=== PATIENT | female | born 1945 | race Caucasian/White ===

== ENCOUNTER 2016-06-23 15:49 | Inpatient (IN) | payer OTHER ==
[~2016-06-23] VITALS: Ht 162.6 cm; Wt 65.1 kg
[~2016-06-23 15:49] MED LIST: ALBUAER2 INH; BACL10TA PO; CEPH500C2 PO; CLOP1TAB15 PO; CYM/30 PO; FENO134C2 PO; IRBE75TA2 PO; OXYC-57 PO
--- NOTE | 2016-06-23 16:07 | EMERGENCY ROOM VISIT NOTE ---
History Report prepared by Niko: Ga Lang Under the Supervision of: Dr. Zev Bronson D.O. First contact with patient: 15:51 Chief Complaint: CARDIAC ASSESSMENT Stated Complaint: CARDIAC ASSESSMENT, REFFERED BY History of Present Illness The patient is a 71 year old female who presents to the Emergency Room with complaints of a persistent abnormal EKG that occurred prior to arrival today. Per the EMS, the patient felt off balance this morning and her blood pressure was 86/46. The patient went to the [facility] and was sent here due to her EKG being different than previously. She has a previous heart cath. Per the patient, she felt tired and dizzy this morning, and hit her head on the doorway , and that is why she went to the [facility]. She notes that she felt good yesterday, but the day before yesterday she did not feel well. The patient complains of a bit of chest pain in one spot (which started months ago), a bit of shortness of breath, a cough, and abdominal pain. She denies a headache, nausea, vomiting, fevers, loss of consciousness, or swelling in her legs. She says she has not exerted herself recently. The patient is an ex-smoker and does not drink alcohol. Source of History: patient, EMS Onset: Prior to arrival today Position: other (global - abnormal EKG) Timing: other (persistent) Associated Symptoms: + SOB, + abdominal pain, + chest pain, + cough, + fatigue, No LOC, No fevers, No headache (no current), No nausea, No vomiting Note: Associated symptoms: Hypotension, dizziness. Denies swelling in legs. Review of Systems See HPI for pertinent positives & negatives. A total of 10 systems reviewed and were otherwise negative. Past Medical & Surgical Medical Problems: (1) Asthma (2) Coronary artery disease (3) Emphysema (4) NSTEMI (non-ST elevated myocardial infarction) (5) TIA (transient ischemic attack) Surgical Problems: (1) H/O bilateral mastectomy (2) H/O cardiac catheterization (3) H/O percutaneous transluminal coronary angioplasty (4) H/O: hysterectomy (5) Stented coronary artery Family History Cancer Heart disease Hypertension Social History Smoking Status: Former Smoker Alcohol Use: none Marital Status: Housing Status: lives alone Occupation Status: retired Current/Historical Medications Scheduled Aspirin (Aspirin Ec), 81 MG PO DAILY Atorvastatin (Atorvastatin Calcium), 40 MG PO DAILY Cholecalciferol (Vitamin D3), 2,000 INTER.UNIT PO DAILY Clopidogrel Bisulfate (Clopidogrel), 75 MG PO QAM Coenzyme Q10 (Ubidecarenone) (Co Q-10), 200 MG PO DAILY Duloxetine HCl (Duloxetine HCl), 30 MG PO DAILY Fenofibrate Micronized (Tricor), 134 MG PO DAILY Magnesium Oxide (Mag-Ox), 400 MG PO BID Trona-3 Fatty Acids (Trona 3), 4,000 MG PO DAILY Ranitidine HCl (Ranitidine HCl), 150 MG PO DAILY Scheduled PRN Albuterol (Ventolin Hfa), 2 PUFFS INH QID PRN for Wheezing Baclofen (Baclofen), 20 MG PO BID PRN for Muscle Spasm Oxycodone/Acetaminophen 5MG/325MG (Percocet 5MG/325MG), 1 TABLET PO TID PRN for Pain Allergies Coded Allergies: Naproxen (Verified Allergy, Mild, 03/24/16) Prednisone (Verified Allergy, Mild, 03/24/16) Sulindac (Verified Allergy, Mild, 03/24/16) Physical Exam Vital Signs Date Time Temp Pulse Resp B/P Pulse Ox O2 Delivery O2 Flow Rate FiO2 06/23/16 19:01 111 18 108/53 95 Room Air 06/23/16 17:59 37.7 112 20 167/68 95 Room Air 06/23/16 17:25 95 06/23/16 17:19 94 18 130/64 94 Room Air 06/23/16 16:37 96 20 105/52 97 Room Air 100 87/63 104 81/50 06/23/16 16:00 97 Room Air 06/23/16 16:00 36.5 93 18 113/65 96 Room Air Physical Exam GENERAL: Patient is awake, alert, and in no acute distress. Patient is resting comfortably and showing no signs of anxiety EYES: The conjunctivae are clear. The pupils are round and reactive. EARS, NOSE, MOUTH AND THROAT: The nose is without any evidence of any deformity. Mucous membranes are moist tongue is midline NECK: The neck is nontender and supple. RESPIRATORY: Lung sounds diminished throughout. Faint rales at both bases. No tachypnea or conversation dyspnea noted. CARDIOVASCULAR: Regular rate and rhythm noted there no murmurs rubs or gallops normal S1 normal S2 GASTROINTESTINAL: Mildly distended with epigastric tenderness to palpation. No guarding or rigidity noted. MUSCULOSKELETAL/EXTREMITIES: There is no evidence of gross deformity full range of motion is noted in the hips and shoulders SKIN: There is no obvious evidence of any rash. There are no petechiae, pallor or cyanosis noted. NEUROLOGIC: Patient is awake alert and oriented x3 strength is symmetric patellar reflexes are 2+ bilaterally Medical Decision & Procedures ER Provider Diagnostic Interpretation: X ray results and stated below per my interpretation and radiology interpretation. Other radiology results per my review and radiologist interpretation: HEAD CT NONCONTRAST CT DOSE: 614.27 mGy.cm HISTORY: fall, head injury TECHNIQUE: Multiaxial CT images of the head were performed without the use of intravenous contrast. Automated exposure control was utilized for this study. Comparison: Head CT 09/07/2014. Findings: Chronic complete opacification of the right maxillary sinus. The mastoid air cells are clear. The calvarium and skull base are intact. There is no mass, hematoma, midline shift, acute infarct. White matter hypodensity is nonspecific but suggestive of microvascular ischemic change. The ventricles and sulci demonstrate mild age-related involutional changes. Small old lacunar infarction within the right basal ganglia and left thalamus. This is also unchanged. Impression: No significant change compared to the prior study. No acute intracranial abnormality. Electronically signed by: Evans Conway M.D. 06/23/2016 5:03 PM CHEST ONE VIEW PORTABLE CLINICAL HISTORY: ABDOMINAL PAIN/GI nausea COMPARISON STUDY: 03/24/2016 FINDINGS: Chronic parenchymal fibrotic change. Subtle increase in prominence of pulmonary vasculature. Diaphragms smooth. Costophrenic angles are sharp. IMPRESSION: Chronic fibrotic change with a mild superimposed component of pulmonary vasculature congestion. There are no focal infiltrates Electronically signed by: Yonatahn Gibson M.D. 06/23/2016 4:[address] OF THE ABDOMEN AND PELVIS WITHOUT CONTRAST CLINICAL HISTORY: Upper abdominal pain COMPARISON STUDY: Abdomen and pelvis CT 03/24/2016. TECHNIQUE: Axial images of the abdomen and pelvis were obtained without IV contrast. Images were reviewed in the axial, sagittal, and coronal planes. FINDINGS: A few calcifications within the right renal sinus probably are vascular in etiology. Small right renal calculi would be difficult to exclude. There are no ureteral calculi. There is no hydronephrosis. There are gallstones within the gallbladder. Evaluation of the remainder of the abdomen and pelvis is suboptimal on this unenhanced exam. Unenhanced images of liver, spleen, adrenal glands and anchors are normal. There is a diverticulum of the second portion of the duodenum. There is no peripancreatic infiltration. There is no evidence for a bowel obstruction. There is colonic diverticulosis without evidence for acute diverticulitis. The appendix is normal. There are findings suggestive of pelvic floor relaxation. There is moderate plaque of the abdominal aorta. The aorta is ectatic. There is no aneurysmal dilatation. Chronic interstitial thickening and honeycombing at the lung bases. This remains unchanged. This likely represents fibrotic change. No pneumoperitoneum. No pneumatosis. Hysterectomy. IMPRESSION: 1. No definite bowel wall thickening or obstruction.. 2. Cholelithiasis. No gallbladder wall thickening.. 3. Normal appendix. 4. Colonic diverticulosis without evidence for acute diverticulitis. Electronically signed by: Evans Conway M.D. 06/23/2016 5:10 PM Laboratory Results 06/23/16 16:11 Red Blood Count 4.32, Mean Corpuscular Volume 84.7, Mean Corpuscular Hemoglobin 29.4, Mean Corpuscular Hemoglobin Concent 34.7, Mean Platelet Volume 9.3, Neutrophils (%) (Auto) 89.3, Lymphocytes (%) (Auto) 3.9, Monocytes (%) (Auto) 6.2, Eosinophils (%) (Auto) 0.1, Basophils (%) (Auto) 0.2, Neutrophils # (Auto) 11.77, Lymphocytes # (Auto) 0.51, Monocytes # (Auto) 0.81, Eosinophils # (Auto) 0.01, Basophils # (Auto) 0.02 06/23/16 16:11 Test 06/23/16 16:11 06/23/16 17:55 White Blood Count 13.16 K/uL (4.8-10.8) Red Blood Count 4.32 M/uL (4.2-5.4) Hemoglobin 12.7 g/dL (12.0-16.0) Hematocrit 36.6 % (37-47) Mean Corpuscular Volume 84.7 fL (80-100) Mean Corpuscular Hemoglobin 29.4 pg (25-34) Mean Corpuscular Hemoglobin Concent 34.7 g/dl (32-36) Platelet Count 155 K/uL (130-400) Mean Platelet Volume 9.3 fL (7.4-10.4) Neutrophils (%) (Auto) 89.3 % Lymphocytes (%) (Auto) 3.9 % Monocytes (%) (Auto) 6.2 % Eosinophils (%) (Auto) 0.1 % Basophils (%) (Auto) 0.2 % Neutrophils # (Auto) 11.77 K/uL (1.4-6.5) Lymphocytes # (Auto) 0.51 K/uL (1.2-3.4) Monocytes # (Auto) 0.81 K/uL (0.11-0.59) Eosinophils # (Auto) 0.01 K/uL (0-0.5) Basophils # (Auto) 0.02 K/uL (0-0.2) RDW Standard Deviation 42.9 fL (36.4-46.3) RDW Coefficient of Variation 13.9 % (11.5-14.5) Immature Granulocyte % (Auto) 0.3 % Immature Granulocyte # (Auto) 0.04 K/uL (0.00-0.02) Dohle Bodies 1+ Prothrombin Time 11.4 SECONDS (9.0-12.0) Prothromb Time International Ratio 1.1 (0.9-1.1) Activated Partial Thromboplast Time 28.2 SECONDS (21.0-31.0) Partial Thromboplastin Ratio 1.1 Anion Gap 11.0 mmol/L (3-11) Est Creatinine Clear Calc Drug Dose 29.8 ml/min Estimated GFR () 36.9 Estimated GFR (Non- 31.9 BUN/Creatinine Ratio 16.8 (10-20) Calcium Level 8.9 mg/dl (8.5-10.1) Total Bilirubin 1.1 mg/dl (0.2-1) Direct Bilirubin 0.2 mg/dl (0-0.2) Aspartate Amino Transf (AST/SGOT) 73 U/L (15-37) Alanine Aminotransferase (ALT/SGPT) 81 U/L (12-78) Alkaline Phosphatase 88 U/L (45-117) Total Creatine Kinase 52 U/L (26-192) Creatine Kinase MB 1.3 ng/ml (0.5-3.6) Creatine Kinase MB Ratio 2.5 (0-3.0) Troponin I 0.049 ng/ml (0-0.045) Pro-B-Type Natriuretic Peptide 6605 pg/ml (0-900) Total Protein 7.4 gm/dl (6.4-8.2) Albumin 3.7 gm/dl (3.4-5.0) Lipase 97 U/L (73-393) Urine Color DK YELLOW Urine Appearance TURBID (CLEAR) Urine pH 5.5 (4.5-7.5) Urine Specific [place] 1.018 (1.000-1.030) Urine Protein 2+ (NEG) Urine Glucose (UA) NEG (NEG) Urine Ketones TRACE (NEG) Urine Occult Blood 2+ (NEG) Urine Nitrite POS (NEG) Urine Bilirubin NEG (NEG) Urine Urobilinogen NEG (NEG) Urine Leukocyte Esterase LARGE (NEG) Urine WBC (Auto) >30 /hpf (0-5) Urine RBC (Auto) 5-10 /hpf (0-4) Urine Hyaline Casts (Auto) 1-5 /lpf (0-5) Urine Epithelial Cells (Auto) >30 /lpf (0-5) Urine Bacteria (Auto) 2+ (NEG) Laboratory results per my review. Medications Administered Medications (Trade) Dose Ordered Sig/Jim Route Start Time Stop Time Status Last Admin Dose Admin Levofloxacin 750 mg 750 mg NOW STAT IV 06/23/16 18:34 06/23/16 18:35 DC 06/23/16 18:59 750 MG Sodium Chloride (Nss 1000ml) 1,000 ml @ 999 mls/hr Q1H1M STAT IV 06/23/16 18:38 06/23/16 19:38 06/23/16 18:59 999 MLS/HR ECG Indication: other (previous abnormal ECG) Rate (beats per minute): 94 Rhythm: normal sinus Findings: Q waves (Inferior), other (Diffuse ST depression noted) Change: no significant change (from March 24 2016) ED Course 1553: The patient was evaluated in room C1B. A complete history and physical examination were performed. 1830: I reevaluated the patient and she is resting comfortably. The patient verbally expressed agreement and understanding of the treatment plan. The patient will be evaluated for further treatment. 1834: Ordered Levaquin / D5W 750 mg IV. 1837: Ordered NSS 1000 ml @ 999 mls/hr IV. 1844: I discussed the patient with Monisha Larsen - she will evaluate the patient for further treatment. Medical Decision Differential diagnosis: Etiologies such as metabolic, infection, hypo/hyperglycemia, electrolyte abnormalities, cardiac sources, intracerebral event, toxicologic, neurologic, as well as others were entertained. Nursing notes reviewed. The patient is a 71-year-old female who presented to the emergency department for an evaluation of dizziness. She was found have an abnormal EKG and her primary care physician's office. She was found have an abnormal EKG and was sent to the emergency department for EKG abnormalities. Her EKG was abnormal but the changes did not appear to be new compared to previous EKG. The patient was found have hypotension as well as a urinary tract infection. I feel it is possible that this is the cause of the patient's hypotension. Initially she was being worked up as a cardiac patient but in retrospect I feel that this is likely represents early sepsis. She responded well to IV fluids. She was given IV antibiotics the emergency department. I discussed the patient's laboratory and radiographic studies with her and her family or murmurs. I also discussed her case with the on-call [facility] hospitalist group. They've agreed to evaluate the patient in the emergency apartment for further management and disposition. Consults Time Called: 1839 Consulting Physician: Monisha Larsen Returned Call: 1844 I discussed the patient with Monisha Larsen - she will evaluate the patient for further treatment. Impression Primary Impression: Sepsis Additional Impressions: UTI (urinary tract infection), Abnormal EKG, Elevated troponin Scribe Attestation The scribe's documentation has been prepared under my direction and personally reviewed by me in its entirety. I confirm that the note above accurately reflects all work, treatment, procedures, and medical decision making performed by me. Departure Information Dispostion Being Evaluated By Hospitalist Referrals Kylie Evans M.D. (PCP) Patient Instructions A Signature Page, My [facility]
[2016-06-23 16:22] LABS: HEMATOCRIT 36.6 % (37-47); MEAN CELL VOLUME 84.7 fL (80-100); MEAN CORPUSCULAR HEMOGLOBIN 29.4 pg (25-34); MEAN CORPUSCULAR HGB CONC 34.7 g/dl (32-36); MEAN PLATELET VOLUME 9.3 fL (7.4-10.4); PLATELET COUNT 155 K/uL (130-400); RED BLOOD COUNT 4.32 M/uL (4.2-5.4); WHITE BLOOD COUNT 13.16 K/uL (4.8-10.8)
--- NOTE | 2016-06-23 16:36 | DIAGNOSTIC IMAGING REPORT ---
CHEST ONE VIEW PORTABLE CLINICAL HISTORY: ABDOMINAL PAIN/GI nausea COMPARISON STUDY: 03/24/2016 FINDINGS: Chronic parenchymal fibrotic change. Subtle increase in prominence of pulmonary vasculature. Diaphragms smooth. Costophrenic angles are sharp. IMPRESSION: Chronic fibrotic change with a mild superimposed component of pulmonary vasculature congestion. There are no focal infiltrates Electronically signed by: Yonathan Gibson M.D. 06/23/2016 4:34 PM
[2016-06-23 16:43] LABS: CALCIUM 8.9 mg/dl (8.5-10.1); POTASSIUM 3.9 mmol/L (3.5-5.1)
[2016-06-23] MEDS ORDERED: PLV75 PO (16:46)
[2016-06-23] MEDS ORDERED: CYM30 PO (16:46)
[2016-06-23] MEDS ORDERED: FENO134C PO (16:46)
[2016-06-23] MEDS ORDERED: LPT40 PO (16:46)
[2016-06-23] MEDS ORDERED: LRS20 PO (16:46)
[2016-06-23 16:47] LABS: BUN/CREATININE RATIO 16.8 (10-20); CREATININE 1.6 mg/dl (0.60-1.20)
[2016-06-23 16:48] LABS: BASO % 0.2 %; BASO ABS # 0.02 K/uL (0-0.2); COMPLETE YES; DOHLE BODIES 1+; EOS % 0.1 %; IG% 0.3 %; LYMPH % 3.9 %; LYMPH ABS # 0.51 K/uL (1.2-3.4); MONO % 6.2 %; NEUT % 89.3 %
[2016-06-23 16:51] LABS: INR 1.1 (0.9-1.1); PARTIAL THROMBOPLASTIN RATIO 1.1; PROTHROMBIN TIME (PATIENT) 11.4 SECONDS (9.0-12.0)
--- NOTE | 2016-06-23 17:05 | DIAGNOSTIC IMAGING REPORT ---
HEAD CT NONCONTRAST CT DOSE: 614.27 mGy.cm HISTORY: fall, head injury TECHNIQUE: Multiaxial CT images of the head were performed without the use of intravenous contrast. Automated exposure control was utilized for this study. Comparison: Head CT 09/07/2014. Findings: Chronic complete opacification of the right maxillary sinus. The mastoid air cells are clear. The calvarium and skull base are intact. There is no mass, hematoma, midline shift, acute infarct. White matter hypodensity is nonspecific but suggestive of microvascular ischemic change. The ventricles and sulci demonstrate mild age-related involutional changes. Small old lacunar infarction within the right basal ganglia and left thalamus. This is also unchanged. Impression: No significant change compared to the prior study. No acute intracranial abnormality. Electronically signed by: Evans Conway M.D. 06/23/2016 5:03 PM
[2016-06-23 17:06] LABS: CKMB/CK RATIO 2.5 (0-3.0)
--- NOTE | 2016-06-23 17:12 | DIAGNOSTIC IMAGING REPORT ---
CT OF THE ABDOMEN AND PELVIS WITHOUT CONTRAST CLINICAL HISTORY: Upper abdominal pain COMPARISON STUDY: Abdomen and pelvis CT 03/24/2016. TECHNIQUE: Axial images of the abdomen and pelvis were obtained without IV contrast. Images were reviewed in the axial, sagittal, and coronal planes. FINDINGS: A few calcifications within the right renal sinus probably are vascular in etiology. Small right renal calculi would be difficult to exclude. There are no ureteral calculi. There is no hydronephrosis. There are gallstones within the gallbladder. Evaluation of the remainder of the abdomen and pelvis is suboptimal on this unenhanced exam. Unenhanced images of liver, spleen, adrenal glands and anchors are normal. There is a diverticulum of the second portion of the duodenum. There is no peripancreatic infiltration. There is no evidence for a bowel obstruction. There is colonic diverticulosis without evidence for acute diverticulitis. The appendix is normal. There are findings suggestive of pelvic floor relaxation. There is moderate plaque of the abdominal aorta. The aorta is ectatic. There is no aneurysmal dilatation. Chronic interstitial thickening and honeycombing at the lung bases. This remains unchanged. This likely represents fibrotic change. No pneumoperitoneum. No pneumatosis. Hysterectomy. IMPRESSION: 1. No definite bowel wall thickening or obstruction.. 2. Cholelithiasis. No gallbladder wall thickening.. 3. Normal appendix. 4. Colonic diverticulosis without evidence for acute diverticulitis. Electronically signed by: Evans Conway M.D. 06/23/2016 5:10 PM
[2016-06-23 18:18] LABS: URINE APPEARANCE TURBID (CLEAR); URINE COLOR DK YELLOW; URINE EPITHELIAL CELL AUTO >30 /lpf (0-5); URINE NITRITE POS (NEG); URINE PH 5.5 (4.5-7.5); URINE SPECIFIC GRAVITY 1.018 (1.000-1.030); UROBILINOGEN NEG (NEG); ZZURINE CULT IF INDIC CATH YES
[2016-06-23 18:25] LABS: MANUAL MICROSCOPIC REQUIRED? NO; REVIEW REQ? NO
[2016-06-23 18:27] LABS: URINE BILIRUBIN NEG (NEG)
[2016-06-23] MEDS ORDERED: LEVAQUIN 750MG / 150ML D5W IV STA (18:34)
[2016-06-23] MEDS ORDERED: SODIUM CHLORIDE 0.9% 1000ML 1,000 ML IV STA (18:38)
[2016-06-23] MEDS ORDERED: ONDANSETRON INJ 2 MG/ML 2 ML VIAL IV PRN (19:30)
[2016-06-23] MEDS ORDERED: POLYETHYLENE (MIRALAX) 17 GM PACK PO PRN (19:30)
[2016-06-23] MEDS ORDERED: ALUMINUM/MAGNESIUM/SIMETH (MAALOX MAX) 30 ML UDC PO PRN (19:30)
[2016-06-23] MEDS ORDERED: ACETAMINOPHEN 325 MG TAB PO PRN (19:30)
[2016-06-23] MEDS ORDERED: MAGNESIUM HYDROXIDE SUSP 30 ML UDC PO PRN (19:30)
--- NOTE | 2016-06-23 20:25 | History and Physical ---
History & Physical Date & Time of Service: Jun 23, 2016 at 20:09 Chief Complaint: Cardiac Assessment, Reffered By . Primary Care Physician: Kylie Evans M.D. History of Present Illness Source: patient, family, clinic records, hospital records This is a 71 year old female with PMH of CAD s/p stents, hx. of CVA, CKD stage 3 , mild COPD presents with dizziness and low blood pressure - states that she was feeling dizzy while walking her dog today. She then went home and her blood pressure was checked by family members and was noted to have SBP between 80-90. She was seen at PCP, Dr. Evans's office later in the day and found to have blood pressure 60/40 and tachycardic and was sent over to the ER for further evaluation. In the ER, she was given IVFs with good response to her blood pressure - UA performed showing UTI; patient states that she did note hematuria on Wednesday (06/21). Denies chest pain, has chronic SOB, which is about at her baseline; improvement with inhaler usage. Currently, her only complaint is weakness. Past Medical/Surgical History Medical Problems: (1) Asthma Status: Chronic (2) Coronary artery disease Status: Chronic (3) Emphysema Status: Chronic (4) NSTEMI (non-ST elevated myocardial infarction) Status: Resolved (5) TIA (transient ischemic attack) Status: Resolved Surgical Problems: (1) H/O bilateral mastectomy Status: Resolved (2) H/O cardiac catheterization Status: Resolved (3) H/O percutaneous transluminal coronary angioplasty Status: Resolved (4) H/O: hysterectomy Status: Resolved (5) Stented coronary artery Status: Chronic Family History Cancer Heart disease Hypertension Social History Smoking Status: Former Smoker Marital Status: Occupational Status: retired Allergies Coded Allergies: Naproxen (Verified Allergy, Mild, 03/24/16) Prednisone (Verified Allergy, Mild, 03/24/16) Sulindac (Verified Allergy, Mild, 03/24/16) Home Medications Scheduled Aspirin (Aspirin Ec), 81 MG PO DAILY Atorvastatin (Atorvastatin Calcium), 40 MG PO DAILY Cholecalciferol (Vitamin D3), 2,000 INTER.UNIT PO DAILY Clopidogrel Bisulfate (Clopidogrel), 75 MG PO QAM Coenzyme Q10 (Ubidecarenone) (Co Q-10), 200 MG PO DAILY Duloxetine HCl (Duloxetine HCl), 30 MG PO DAILY Fenofibrate Micronized (Tricor), 134 MG PO DAILY Magnesium Oxide (Mag-Ox), 400 MG PO BID [place]-3 Fatty Acids ([place] 3), 4,000 MG PO DAILY Ranitidine HCl (Ranitidine HCl), 150 MG PO DAILY Scheduled PRN Albuterol (Ventolin Hfa), 2 PUFFS INH QID PRN for Wheezing Baclofen (Baclofen), 20 MG PO BID PRN for Muscle Spasm Oxycodone/Acetaminophen 5MG/325MG (Percocet 5MG/325MG), 1 TABLET PO TID PRN for Pain Review of Systems Constitutional: + fatigue, + weakness, No chills, No fever, No sweats, No weight loss Respiratory: + cough, + shortness of breath (baseline), No sputum, No wheezing Cardiovascular: No chest pain, No edema, No orthopnea, No palpitations Abdomen: No GI bleeding, No constipation, No diarrhea, No nausea, No pain, No vomiting Musculoskeletal: + joint pain (chronic back pain) Genitourinary - Female: + hematuria, No dysuria, No urinary frequency, No urinary urgency Neurologic: + balance problems, + vertigo, + weakness, No memory loss, No numbness/tingling, No paralysis Psychiatric: No depression symptoms Endocrine: No fatigue Integumentary: No rash Allergic / Immunologic: No environmental allergies, No seasonal allergies Physical Exam Vital Signs Date Time Temp Pulse Resp B/P Pulse Ox O2 Delivery O2 Flow Rate FiO2 06/23/16 19:01 111 18 108/53 95 Room Air 06/23/16 17:59 37.7 112 20 167/68 95 Room Air 06/23/16 17:25 95 06/23/16 17:19 94 18 130/64 94 Room Air 06/23/16 16:37 96 20 105/52 97 Room Air 100 87/63 104 81/50 06/23/16 16:00 97 Room Air 06/23/16 16:00 36.5 93 18 113/65 96 Room Air General Appearance: + pertinent finding (+lethargic/weak) Head: normocephalic, atraumatic Eyes: normal inspection ENT: hearing grossly normal Neck: supple Respiratory/Chest: lungs clear, normal breath sounds, no respiratory distress, no accessory muscle use Cardiovascular: no edema, no murmur, + tachycardia Abdomen/GI: normal bowel sounds, non tender, soft Extremities/Musculoskelatal: normal inspection, no calf tenderness, normal capillary refill, no pedal edema Neurologic/Psych: no motor/sensory deficits, alert, normal mood/affect Skin: normal color Lymphatic: no adenopathy Diagnostics Laboratory Results Results Past 24 Hours Test 06/23/16 16:11 06/23/16 17:55 06/23/16 19:41 06/23/16 19:47 Range/Units White Blood Count 13.16 4.8-10.8 K/uL Red Blood Count 4.32 4.2-5.4 M/uL Hemoglobin 12.7 12.0-16.0 g/dL Hematocrit 36.6 37-47 % Mean Corpuscular Volume 84.7 80-100 fL Mean Corpuscular Hemoglobin 29.4 25-34 pg Mean Corpuscular Hemoglobin Concent 34.7 32-36 g/dl Platelet Count 155 130-400 K/uL Mean Platelet Volume 9.3 7.4-10.4 fL Neutrophils (%) (Auto) 89.3 % Lymphocytes (%) (Auto) 3.9 % Monocytes (%) (Auto) 6.2 % Eosinophils (%) (Auto) 0.1 % Basophils (%) (Auto) 0.2 % Neutrophils # (Auto) 11.77 1.4-6.5 K/uL Lymphocytes # (Auto) 0.51 1.2-3.4 K/uL Monocytes # (Auto) 0.81 0.11-0.59 K/uL Eosinophils # (Auto) 0.01 0-0.5 K/uL Basophils # (Auto) 0.02 0-0.2 K/uL RDW Standard Deviation 42.9 36.4-46.3 fL RDW Coefficient of Variation 13.9 11.5-14.5 % Immature Granulocyte % (Auto) 0.3 % Immature Granulocyte # (Auto) 0.04 0.00-0.02 K/uL Dohle Bodies 1+ Prothrombin Time 11.4 9.0-12.0 SECONDS Prothromb Time International Ratio 1.1 0.9-1.1 Activated Partial Thromboplast Time 28.2 21.0-31.0 SECONDS Partial Thromboplastin Ratio 1.1 Sodium Level 140 136-145 mmol/L Potassium Level 3.9 3.5-5.1 mmol/L Chloride Level 106 98-107 mmol/L Carbon Dioxide Level 23 21-32 mmol/L Anion Gap 11.0 3-11 mmol/L Blood Urea Nitrogen 27 7-18 mg/dl Creatinine 1.60 0.60-1.20 mg/dl Est Creatinine Clear Calc Drug Dose 29.8 ml/min Estimated GFR () 36.9 Estimated GFR (Non- 31.9 BUN/Creatinine Ratio 16.8 10-20 Random Glucose 106 70-99 mg/dl Calcium Level 8.9 8.5-10.1 mg/dl Total Bilirubin 1.1 0.2-1 mg/dl Direct Bilirubin 0.2 0-0.2 mg/dl Aspartate Amino Transf (AST/SGOT) 73 15-37 U/L Alanine Aminotransferase (ALT/SGPT) 81 12-78 U/L Alkaline Phosphatase 88 45-117 U/L Total Creatine Kinase 52 26-192 U/L Creatine Kinase MB 1.3 0.5-3.6 ng/ml Creatine Kinase MB Ratio 2.5 0-3.0 Troponin I 0.049 0-0.045 ng/ml Pro-B-Type Natriuretic Peptide 6605 0-900 pg/ml Total Protein 7.4 6.4-8.2 gm/dl Albumin 3.7 3.4-5.0 gm/dl Lipase 97 73-393 U/L Urine Color DK YELLOW Urine Appearance TURBID CLEAR Urine pH 5.5 4.5-7.5 Urine Specific [place] 1.018 1.000-1.030 Urine Protein 2+ NEG Urine Glucose (UA) NEG NEG Urine Ketones TRACE NEG Urine Occult Blood 2+ NEG Urine Nitrite POS NEG Urine Bilirubin NEG NEG Urine Urobilinogen NEG NEG Urine Leukocyte Esterase LARGE NEG Urine WBC (Auto) >30 0-5 /hpf Urine RBC (Auto) 5-10 0-4 /hpf Urine Hyaline Casts (Auto) 1-5 0-5 /lpf Urine Epithelial Cells (Auto) >30 0-5 /lpf Urine Bacteria (Auto) 2+ NEG Bedside Lactic Acid Venous 2.75 0.90-1.70 mmol/L Microbiology Results 06/23/16 Blood Culture, Received Pending 06/23/16 Blood Culture, Received Pending 1/3/17 Urine Culture, Received Pending Diagnostic Radiology CHEST ONE VIEW PORTABLE CLINICAL HISTORY: ABDOMINAL PAIN/GI nausea COMPARISON STUDY: 03/24/2016 FINDINGS: Chronic parenchymal fibrotic change. Subtle increase in prominence of pulmonary vasculature. Diaphragms smooth. Costophrenic angles are sharp. IMPRESSION: Chronic fibrotic change with a mild superimposed component of pulmonary vasculature congestion. There are no focal infiltrates HEAD CT NONCONTRAST CT DOSE: 614.27 mGy.cm HISTORY: fall, head injury TECHNIQUE: Multiaxial CT images of the head were performed without the use of intravenous contrast. Automated exposure control was utilized for this study. Comparison: Head CT 09/07/2014. Findings: Chronic complete opacification of the right maxillary sinus. The mastoid air cells are clear. The calvarium and skull base are intact. There is no mass, hematoma, midline shift, acute infarct. White matter hypodensity is nonspecific but suggestive of microvascular ischemic change. The ventricles and sulci demonstrate mild age-related involutional changes. Small old lacunar infarction within the right basal ganglia and left thalamus. This is also unchanged. Impression: No significant change compared to the prior study. No acute intracranial abnormality. CT OF THE ABDOMEN AND PELVIS WITHOUT CONTRAST CLINICAL HISTORY: Upper abdominal pain COMPARISON STUDY: Abdomen and pelvis CT 03/24/2016. TECHNIQUE: Axial images of the abdomen and pelvis were obtained without IV contrast. Images were reviewed in the axial, sagittal, and coronal planes. FINDINGS: A few calcifications within the right renal sinus probably are vascular in etiology. Small right renal calculi would be difficult to exclude. There are no ureteral calculi. There is no hydronephrosis. There are gallstones within the gallbladder. Evaluation of the remainder of the abdomen and pelvis is suboptimal on this unenhanced exam. Unenhanced images of liver, spleen, adrenal glands and anchors are normal. There is a diverticulum of the second portion of the duodenum. There is no peripancreatic infiltration. There is no evidence for a bowel obstruction. There is colonic diverticulosis without evidence for acute diverticulitis. The appendix is normal. There are findings suggestive of pelvic floor relaxation. There is moderate plaque of the abdominal aorta. The aorta is ectatic. There is no aneurysmal dilatation. Chronic interstitial thickening and honeycombing at the lung bases. This remains unchanged. This likely represents fibrotic change. No pneumoperitoneum. No pneumatosis. Hysterectomy. IMPRESSION: 1. No definite bowel wall thickening or obstruction.. 2. Cholelithiasis. No gallbladder wall thickening.. 3. Normal appendix. 4. Colonic diverticulosis without evidence for acute diverticulitis. EKG Sinus rhythm with Premature atrial complexes Left ventricular hypertrophy with repolarization abnormality ST depression in Anterior leads , consider ischemia Old Inferior-posterior infarct Prolonged QT Abnormal ECG Similar to previous EKG, with a prolongation of QTc Impression Assessment and Plan This is a 71 year old female with PMH of CAD s/p stents, hx. of CVA, CKD stage 3 , mild COPD here with UTI and meets sepsis criteria Sepsis secondary to Urinary Tract Infection -->patient meets sepsis criteria - +tachycardia, +leukocytosis, +hypotension -->lactic acid > 2 -->patient given 1L of fluid in the ER; blood pressure responded well -->given Levaquin in the ER -->will switch to Rocephin due to prolonged QTc -->gentle hydration -->urine culture/blood cultures pending Acute Kidney Injury superimposed on CKD stage 3 -->secondary to above -->given 1L of NS; gentle maintenance fluids -->monitor creat and avoid nephrotoxic agents when possible Elevation of Troponin -->mild elevation of troponin, 0.049 -->likely secondary to sepsis, patient without chest pain -->repeat EKG in AM to compare to today -->cardiac enzymes x 3 sets BNP elevation -->patient's last echo done on July 2014; showing normal LVEF -->possibly secondary to sepsis -->gentle hydration due to hypotension/dehydration; monitor for fluid overload CAD s/p stenting -->continue with ASA, plavix, statin -->trend cardiac enzymes DVT ppx -->subq heparin FULL CODE VTE Prophylaxis VTE Risk Assessment Done? Y/N: Yes Risk Level: High
[2016-06-23] MEDS ORDERED: CHOL20005 PO (20:26)
[2016-06-23] MEDS ORDERED: ZNT150 PO (20:27)
[2016-06-23] MEDS ORDERED: COEN1CAP37 PO (21:22)
[2016-06-23] MEDS ORDERED: OMEG12006 PO (21:22)
[2016-06-23] MEDS ORDERED: MAGN400T5 PO (21:22)
[2016-06-23] MEDS ORDERED: ASPI81TA28 PO (21:22)
[2016-06-23 21:35] VITALS: BP 110/66; PULSE 109; TEMP 37.4; Ht 162.6 cm; Wt 65.1 kg
[2016-06-23] MEDS: SODIUM CHLORIDE 0.9% 1000ML 1,000 ML IV SCH (22:27)
[2016-06-23 23:05] VITALS: BP 100/48; PULSE 99; TEMP 36.7; O2SAT 93
[2016-06-24 00:01] VITALS: O2SAT 95
[2016-06-24] MEDS: CEFTRIAXONE SOD INJ 1 GM in DEXTROSE 5% ADD-VANTAGE 50ML 50 ML IV SCH ×2 (00:04→21:04)
[2016-06-24] MEDS: FLUTICASONE PROPIONATE NA SPR 16 GM BTL SCH ×3 (00:04→19:58)
[2016-06-24] MEDS: MAGNESIUM OXIDE 400 MG TAB PO SCH ×3 (00:05→21:03)
[2016-06-24] MEDS: HEPARIN SOD 5000 UNIT/0.5 ML CARP SQ SCH ×4 (00:10→21:07)
[2016-06-24 01:53] LABS: INFLUENZA A PCR Neg for Influ A (NEG); INFLUENZA B PCR Neg for Influ B (NEG)
[2016-06-24] MEDS ORDERED: PNEUMOCOCCAL ADMINISTRATION CHARGE ONE (02:30)
[2016-06-24] MEDS ORDERED: PNEUMOCOCCAL POLYSACCHARIDES 25 MCG/0.5 ML VIAL/SYR IM. ONE (02:30)
[2016-06-24 02:31] LABS: CKMB/CK RATIO 2.5 (0-3.0)
[2016-06-24 03:33] LABS: MEAN CELL VOLUME 86.4 fL (80-100); MEAN CORPUSCULAR HGB CONC 33.5 g/dl (32-36); MEAN PLATELET VOLUME 9.8 fL (7.4-10.4); PLATELET COUNT 110 K/uL (130-400); RED BLOOD COUNT 3.59 M/uL (4.2-5.4); WHITE BLOOD COUNT 7.06 K/uL (4.8-10.8)
[2016-06-24 03:51] LABS: CALCIUM 8.3 mg/dl (8.5-10.1); CREATININE 1.4 mg/dl (0.60-1.20); MAGNESIUM 2.4 mg/dl (1.8-2.4); POTASSIUM 3.8 mmol/L (3.5-5.1)
[2016-06-24 04:00] VITALS: BP 98/58; PULSE 93; TEMP 36.7; O2SAT 92
[2016-06-24 07:29] VITALS: BP 118/64; PULSE 95; TEMP 36.6; O2SAT 94
[2016-06-24] MEDS: DULOXETINE (CYMBALTA) 30 MG CAP PO SCH (08:30)
[2016-06-24] MEDS: ASPIRIN 81 MG ECTAB PO SCH (08:30)
[2016-06-24] MEDS: ATORVASTATIN 40 MG TAB PO SCH (08:31)
[2016-06-24] MEDS: RANITIDINE HCL 150 MG TAB PO SCH (08:31)
[2016-06-24] MEDS: CLOPIDOGREL BISULFATE 75 MG TAB PO SCH (08:31)
[2016-06-24 10:54] LABS: CKMB/CK RATIO 2.7 (0-3.0)
[2016-06-24] MEDS: SODIUM CHLORIDE 0.9% 1000ML 1,000 ML IV SCH ×2 (11:00→23:30)
[2016-06-24 11:18] VITALS: BP 144/71; PULSE 88; TEMP 36.8; O2SAT 98
--- NOTE | 2016-06-24 15:02 | ECHOCARDIOGRAM REPORT ---
*NOTICE TO RECEIVING LIBERTARIAN AGENCY This information is strictly Confidential and protected under [place] law. [place] law prohibits you from making any further disclosure of this information unless further disclosure is expressly permitted by the written consent of the person to whom it pertains or is authorized by law. A general authorization for the release of medical or other information is not sufficient for this purpose. Hospital accepts no responsibility if the information is made available to any other person, INCLUDING THE PATIENT. Interpretation Summary * Name: GAYE APONTE Study Date: 06/24/2016 12:56 PM BP: 144/71 mmHg * Patient Location: C.2T\S\S241\S\2 HR: 88 * : 1945 (M/d/yyyy) Gender: Female Height: 64 in * Age: 71 yrs Ethnicity: [place] Weight: 145 lb * Ordering Physician: Ashlyn Guo * Referring Physician: Self, Referred * Performed By: Juno Rodarte RCS * * Reason For Study: Elevated troponins * BSA: 1.7 m2 * -- Conclusions -- * Normal LV chamber size and wall thickness. * Normal LV systolic function, EF 60-65%. * No segmental left ventricular wall motion abnormalities are noted. * Grade I diastolic dysfunction. * Mild mitral regurgitation. * Mild tricuspid regurgitation. * Mild left atrial enlargement. Procedure Details * A complete two-dimensional transthoracic echocardiogram was performed (2D, M-mode, Doppler and color flow Doppler). Left Ventricle * The left ventricle is normal in size. * There is normal left ventricular wall thickness. * Ejection Fraction = 60-65%. * Left ventricular systolic function is normal. * No segmental left ventricular wall motion abnormalities are noted. * The left ventricular wall motion is normal. Right Ventricle * The right ventricular cavity size is normal (basal dimension <4.2 cm in right ventricular apical 4-chamber view). * The right ventricular systolic function is normal as assessed by tricuspid annular plane systolic excursion (TAPSE) (normal >1.5 cm). Atria * The left atrium is mildly dilated. * Right atrial size is normal. * No ASD detected; PFO is not assessed. Mitral Valve * The mitral valve anatomy is normal. * There is no mitral valve stenosis. * There is mild mitral regurgitation. Tricuspid Valve * The tricuspid valve anatomy is normal. * There is no tricuspid stenosis. * There is mild tricuspid regurgitation. Aortic Valve * The aortic valve is normal in structure and function. Pulmonic Valve * The pulmonary valve is not well seen, but the Doppler examination is normal without significant regurgitation or stenosis. Great Vessels * The aortic root is normal size. Pericardium/Pleural * There is no pericardial effusion. Left Ventricular Diastolic Function * Grade I diastolic dysfunction, (abnormal relaxation pattern). MMode 2D Measurements and Calculations IVSd 1.0 cm IVSs 1.5 cm LVIDd 4.6 cm LVIDs 3.1 cm LVPWd 1.0 cm LVPWs 1.6 cm IVS/LVPW 1.0 FS 32.3 % EDV(Teich) 97.2 ml ESV(Teich) 38.3 ml EF(Teich) 60.7 % EDV(cubed) 97.2 ml ESV(cubed) 30.1 ml EF(cubed) 69.0 % % IVS thick 44.1 % % LVPW thick 55.9 % LV mass(C)d 163.8 grams LV mass(C)dI 96.0 grams/m\S\2 LV mass(C)s 172.0 grams LV mass(C)sI 100.8 grams/m\S\2 CO(Teich) 4.9 l/min CI(Teich) 2.9 l/min/m\S\2 SV(Teich) 59.0 ml SI(Teich) 34.6 ml/m\S\2 CO(cubed) 5.6 l/min CI(cubed) 3.3 l/min/m\S\2 SV(cubed) 67.1 ml SI(cubed) 39.3 ml/m\S\2 Ao root diam 3.5 cm Ao root area 9.5 cm\S\2 ACS 2.0 cm LA dimension 4.5 cm LA/Ao 1.3 LVAd ap4 23.9 cm\S\2 LVLd ap4 7.9 cm EDV(MOD-sp4) 61.0 ml LVAs ap4 13.2 cm\S\2 LVLs ap4 6.2 cm ESV(MOD-sp4) 24.0 ml EF(MOD-sp4) 60.7 % LVAd ap2 25.6 cm\S\2 LVLd ap2 8.1 cm EDV(MOD-sp2) 68.0 ml LVAs ap2 13.8 cm\S\2 LVLs ap2 6.4 cm ESV(MOD-sp2) 26.0 ml EF(MOD-sp2) 61.8 % CO(MOD-sp4) 3.1 l/min CI(MOD-sp4) 1.8 l/min/m\S\2 SV(MOD-sp4) 37.0 ml SI(MOD-sp4) 21.7 ml/m\S\2 CO(MOD-sp2) 3.5 l/min CI(MOD-sp2) 2.0 l/min/m\S\2 SV(MOD-sp2) 42.0 ml SI(MOD-sp2) 24.6 ml/m\S\2 Doppler Measurements and Calculations MV E max jenny 62.7 cm/sec MV A max jenny 105.6 cm/sec MV E/A 0.59 MV P1/2t max jenny 67.3 cm/sec MV P1/2t 95.7 msec MVA(P1/2t) 2.3 cm\S\2 MV dec slope 206.2 cm/sec\S\2 MV dec time 0.25 sec Ao V2 max 132.3 cm/sec Ao max PG 7.0 mmHg Ao max PG (full) 1.3 mmHg LV V1 max PG 5.8 mmHg LV V1 max 119.9 cm/sec PA V2 max 104.8 cm/sec PA max PG 4.4 mmHg TR max jenny 307.1 cm/sec
[2016-06-24 15:56] VITALS: BP 142/70; PULSE 88; TEMP 36.8; O2SAT 95
[2016-06-24 19:30] VITALS: BP 132/74; PULSE 98; TEMP 36.9; O2SAT 94
--- NOTE | 2016-06-24 21:25 | Progress Note ---
Medicine Progress Note Date & Time of Visit: Jun 24, 2016 at 21:11. Subjective Pt was seen and examined Lying in bed comfortable with at bedside Pt said that she feels much better she denies any fever, chest pain, palpitation, dizziness and SOB Objective Last 8 Hrs Date Time Temp Pulse Resp B/P Pulse Ox O2 Delivery O2 Flow Rate FiO2 06/24/16 20:00 Room Air 06/24/16 19:30 36.9 98 20 132/74 94 Room Air 06/24/16 16:00 Room Air 06/24/16 15:56 36.8 88 22 142/70 95 Room Air Physical Exam: General- no acute distress Head- atraumatic Eyes- PERRL, EOMI ENT- oropharynx clear Neck- supple, no JVD Lungs- clear to auscultation and percussion Heart- regular rhythm, S1/S2 present, No tachy Abdomen- normal bowel sounds, soft, nontender Extremities- no calf tenderness Neuro- alert, oriented x 3; PERRL, EOMI; no facial palsy Skin- warm & dry Laboratory Results: Last 24 Hours Test 06/23/16 22:30 06/24/16 01:35 06/24/16 03:20 06/24/16 09:50 Influenza Type A (RT-PCR) Neg for Influ A Influenza Type B (RT-PCR) Neg for Influ B Total Creatine Kinase 53 U/L 49 U/L Creatine Kinase MB 1.3 ng/ml 1.3 ng/ml Creatine Kinase MB Ratio 2.5 2.7 Troponin I 0.061 ng/ml 0.080 ng/ml White Blood Count 7.06 K/uL Red Blood Count 3.59 M/uL Hemoglobin 10.4 g/dL Hematocrit 31.0 % Mean Corpuscular Volume 86.4 fL Mean Corpuscular Hemoglobin 29.0 pg Mean Corpuscular Hemoglobin Concent 33.5 g/dl RDW Standard Deviation 44.7 fL RDW Coefficient of Variation 14.2 % Platelet Count 110 K/uL Mean Platelet Volume 9.8 fL Sodium Level 144 mmol/L Potassium Level 3.8 mmol/L Chloride Level 110 mmol/L Carbon Dioxide Level 24 mmol/L Anion Gap 10.0 mmol/L Blood Urea Nitrogen 27 mg/dl Creatinine 1.40 mg/dl Est Creatinine Clear Calc Drug Dose 31.4 ml/min Estimated GFR () 43.4 Estimated GFR (Non- 37.4 BUN/Creatinine Ratio 19.0 Random Glucose 97 mg/dl Lactic Acid Level 1.5 mmol/L Calcium Level 8.3 mg/dl Magnesium Level 2.4 mg/dl Assessment & Plan Sepsis secondary to Urinary Tract Infection -patient meets sepsis criteria on admission - +tachycardia, +leukocytosis, + hypotension with elevated lactic acid -given Levaquin in the ER - Preliminary Blood cx and urine cx grow gram negative bacilli - Continue Rocephin IV -gentle hydration -afebrile and WBC trending down Acute Kidney Injury superimposed on CKD stage 3 Creatine on admission was 1.6 Creatine today 1.4 Continue gentle IV fluid Continue monitor creatine Avoid nephrotoxic agents Elevation of Troponin mild elevation of troponin EKG did not show any significant ST changes Mostly likely secondary to sepsis due to elevated creatine Asymptomatic Echo Finding Conclusions -- * Normal LV chamber size and wall thickness. * Normal LV systolic function, EF 60-65%. * No segmental left ventricular wall motion abnormalities are noted. * Grade I diastolic dysfunction. * Mild mitral regurgitation. * Mild tricuspid regurgitation. * Mild left atrial enlargement. continue monitor pt in tele will continue asa and Plavix. CAD s/p stenting -continue with ASA, plavix, statin -Creatine slightly increase -Will consider to start on a low dose BB once BB stable - will follow cardiology consult DVT ppx -subq heparin Code Status Full code Current Inpatient Medications: Current Inpatient Medications Medications (Trade) Dose Ordered Sig/Jim Route Start Time Stop Time Status Last Admin Dose Admin Heparin Sodium (Porcine) (Heparin Sq 5000 Unit/0.5ml) 5,000 unit Q8 SQ 06/23/16 23:00 07/23/16 22:59 06/24/16 21:07 5,000 UNIT Acetaminophen (Tylenol Tab) 650 mg Q4H PRN PO 06/23/16 19:30 07/23/16 19:29 06/23/16 22:14 650 MG Al Hydrox/Mg Hydrox/Simethicone (Maalox Max Susp) 15 ml Q4H PRN PO 06/23/16 19:30 07/23/16 19:29 Magnesium Hydroxide (Milk Of Magnesia Susp) 30 ml Q12H PRN PO 06/23/16 19:30 07/23/16 19:29 Ondansetron HCl (Zofran Inj) 4 mg Q6H PRN IV 06/23/16 19:30 07/23/16 19:29 Aspirin (Ecotrin Tab) 81 mg QAM PO 06/24/16 09:00 07/24/16 08:59 06/24/16 08:30 81 MG Polyethylene 17 gm 17 gm DAILY PRN PO 06/23/16 19:30 07/23/16 19:29 Ceftriaxone Sodium/Dextrose (Rocephin Inj/ Dextrose Add-[place] 50ML) 50 ml @ 100 mls/hr DAILY@2200 IV 06/23/16 23:00 07/03/16 22:59 06/24/16 21:04 100 MLS/HR Atorvastatin Calcium (Lipitor Tab) 40 mg DAILY PO 06/24/16 09:00 07/24/16 08:59 06/24/16 08:31 40 MG Clopidogrel Bisulfate (plAVix TAB) 75 mg QAM PO 06/24/16 09:00 07/24/16 08:59 06/24/16 08:31 75 MG Duloxetine HCl (Cymbalta Cap) 30 mg DAILY PO 06/24/16 09:00 07/24/16 08:59 06/24/16 08:30 30 MG Magnesium Oxide (Mag-Ox Tab) 400 mg BID PO 06/23/16 23:00 07/23/16 22:59 06/24/16 21:03 400 MG Ranitidine HCl 150 mg 150 mg DAILY PO 06/24/16 09:00 07/24/16 08:59 06/24/16 08:31 150 MG Sodium Chloride (Nss 1000ml) 1,000 ml @ 80 mls/hr [id number] IV 06/23/16 22:30 07/23/16 22:29 06/24/16 11:00 80 MLS/HR Fluticasone Propionate (Flonase Nasal [place]) 1 sprays BID NA 06/23/16 23:00 07/23/16 22:59 06/24/16 00:04 1 SPRAYS
[2016-06-25] VITALS (7 sets, daily range): BP systolic 105–187; BP diastolic 61–96; PULSE 80–100; TEMP 36.3–37; O2SAT 90–96
[2016-06-25] MEDS: HEPARIN SOD 5000 UNIT/0.5 ML CARP SQ SCH ×3 (06:17→21:00)
[2016-06-25] MEDS: FLUTICASONE PROPIONATE NA SPR 16 GM BTL SCH ×2 (08:08→20:57)
[2016-06-25] MEDS: MAGNESIUM OXIDE 400 MG TAB PO SCH ×2 (08:08→20:58)
[2016-06-25] MEDS: RANITIDINE HCL 150 MG TAB PO SCH (08:09)
[2016-06-25] MEDS: DULOXETINE (CYMBALTA) 30 MG CAP PO SCH (08:09)
[2016-06-25] MEDS: ATORVASTATIN 40 MG TAB PO SCH (08:09)
[2016-06-25] MEDS: CLOPIDOGREL BISULFATE 75 MG TAB PO SCH (08:09)
[2016-06-25] MEDS: ASPIRIN 81 MG ECTAB PO SCH (08:09)
[2016-06-25 08:37] LABS: HEMATOCRIT 32.9 % (37-47); MEAN CELL VOLUME 86.4 fL (80-100); MEAN CORPUSCULAR HEMOGLOBIN 28.9 pg (25-34); MEAN CORPUSCULAR HGB CONC 33.4 g/dl (32-36); MEAN PLATELET VOLUME 9.8 fL (7.4-10.4); PLATELET COUNT 103 K/uL (130-400); RED BLOOD COUNT 3.81 M/uL (4.2-5.4); WHITE BLOOD COUNT 4.23 K/uL (4.8-10.8)
[2016-06-25 09:35] LABS: BLOOD UREA NITROGEN 17 mg/dl (7-18); BUN/CREATININE RATIO 16.5 (10-20); CALCIUM 8.6 mg/dl (8.5-10.1); CARBON DIOXIDE 22 mmol/L (21-32); CHLORIDE 112 mmol/L (98-107); GLUCOSE 108 mg/dl (70-99); SODIUM 142 mmol/L (136-145)
--- NOTE | 2016-06-25 09:42 | Cardiology Consultation ---
Cardiology Consultation Cardiology consultation: Date: 06/25/16 Requesting Physician: Dr. Guo Attending Inbound Call Center Agent: Dr. Villavicencio History of Present Illness Patient is a 71 year old female with a past medical history significant for coronary artery disease as below, for which she follows with Dr. Randolph. History of stent to RCA in 2009. Repeat catheterization due to worsening SOB and EKG changes in 01/2014 demonstrated LVEF 45% with inferior hypokinesis, 100% RCA occlusion with L to R collaterals, 30% LAD stenosis, 75% 2nd septal branch stenosis, 10% left circ stenosis. Med management recommended at that time. Last admission in 07/2014 for pneumonia and NSTEMI for which she underwent repeat cath demonstrating - LM: No disease. LAD: very tortuous. Proximal 40% stenosis. Provides Left to right collaterals. LCx: mild luminal irregularities. High OM/Ramus: no disease. tortuous. RCA: dominant. 100% ostial occlusion. Nonselective angiogram. Fills from LAD/ Septal Left to right collaterals. Echo demonstrated preserved LV function without wall motion abnormalities at that time. Med management recommended. Post cath she developed stroke like symptoms, which resolved without intervention Other history includes COPD with prior tobacco abuse, quitting in September 2013, hypertension, dyslipidemia, prior breast CA. Patient was admitted from PCP, Dr. Evans's office on 06/23/16 with complaints of weakness, hypotension, tachycardia, and probable UTI with hematuria. Upon arrival, she was treated for likely urosepsis. Troponin minimally elevated. EKG demonstrated T wave abnormality in anterior and lateral leads. She is known to have chronic abnormal EKG with repolarization changes with LVH. She had no acute complaints of chest pain or worsening of chronic SOB upon arrival. Over the last 24-48 hours patient has shown improvement in weakness, BP and HR response with treatment of underlying infection. She denies chest pain or worsening SOB since admission. At time of consult, patient feeling well. Requesting to go home, however now she has positive blood cultures. Offers no complaints. Denies SOB, CP, orthopnea , PND or edema. No palpitations, dizziness, syncope or near syncope. No fever, cough, or chills. She states she feels 100% better. Review of Systems: See HPI for pertinent positives. All other 10 point review of systems. History Past Medical History: 1. CAD s/p stent to RCA in 2009, repeat cath in 01/2014 - med management with 100 % RCA occlusion; 30% LAD, 10% left Circ, 75% 2nd septal branch 2. Chronic systolic HF with EF 45% with inferior wall hypokinesis 3. hypertension 4. Dyslipidemia 5. BRCA gene positive - b/l mastectomy 6. COPD - prior tobacco abuse Past Surgical History: B/L mastectomy Cardiac catheterization x2 as above Hysterectomy Social History: Prior tobacco abuse quitting in 09/2013. No alcohol use. Retired. Family History: breast cancer and HTN Allergies: Fenofibrate (Verified Allergy, Mild, 08/08/14) Naproxen (Verified Allergy, Mild, 08/08/14) Prednisone (Verified Allergy, Mild, 08/08/14) Sulindac (Verified Allergy, Mild, 08/08/14) Medications Reported Home Medications Medications Dose Route/Sig Max Daily Dose Days Date Category Baclofen 20 Mg Tab 20 Mg PO BID PRN 06/23/16 Reported Tricor (Fenofibrate Micronized) 134 Mg Cap 134 Mg PO DAILY 06/23/16 Reported Atorvastatin Calcium (Atorvastatin) 40 Mg Tab 40 Mg PO DAILY 06/23/16 Reported Clopidogrel (Clopidogrel Bisulfate) 75 Mg Tab 75 Mg PO QAM 06/23/16 Reported Duloxetine HCl 30 Mg Cap 30 Mg PO DAILY 06/23/16 Reported Ranitidine HCl 150 Mg Tab 150 Mg PO DAILY 03/24/16 Reported Vitamin D3 (Cholecalciferol) 2,000 Unit Tab 2,000 Inter.unit PO DAILY 08/07/14 Reported Percocet 5MG/325MG (Oxycodone/Acetaminophen) Tab 1 Tablet PO TID PRN 11/25/13 Reported Ventolin Hfa (Albuterol) Aers 2 Puffs INH QID PRN 11/25/13 Reported [place] 3 ([place]-3 Fatty Acids) 1 Cap Cap 4,000 Mg PO DAILY 10/17/13 Reported Aspirin Ec (Aspirin) 81 Mg Tab 81 Mg PO DAILY 10/17/13 Reported Mag-Ox (Magnesium Oxide) 400 Mg Tab 400 Mg PO BID 10/17/13 Reported Co Q-10 (Coenzyme Q10 (Ubidecarenone)) 200 Mg Cap 200 Mg PO DAILY 10/17/13 Reported Physical Exam Last 8 Hrs Date Time Temp Pulse Resp B/P Pulse Ox O2 Delivery O2 Flow Rate FiO2 06/25/16 08:03 37.0 93 18 147/85 90 06/25/16 04:00 36.9 99 18 153/79 92 Room Air 06/25/16 04:00 Room Air General Appearance: Alert and Oriented x3. NAD. Head: Normocephalic Atraumatic. Eyes: PERRLA, EOMI, conjunctiva and sclera clear Neck: Supple. No carotid bruits noted. No JVD. No HJD. Respiratory: Breath sounds clear to auscultation bilaterally. No w/r/r. Cardiovascular: Reg rate and rhythm. S1 and S2 noted. No murmurs, rubs, gallops. PMI non displace. Abdomen: Normal bowel sounds, soft nontender. no abdominal bruits. Extremities: No edema, no clubbing or cyanosis. distal pulses 2/4 bilaterally. Neuro: No focal deficits. Psychiatric: Normal affect. Data: EKG this AM 06/25/16: Sinus rhythm with occasional Premature ventricular complexes ST & T wave abnormality, consider inferior ischemia ST & T wave abnormality, consider anterolateral ischemia Abnormal ECG When compared with ECG of 24-JUN-2016 11:57, Premature ventricular complexes are now Present Inverted T waves have replaced nonspecific T wave abnormality in Inferior leads EKG in AM on 06/24/16: Normal sinus rhythm Left ventricular hypertrophy with repolarization abnormality ST depression in Anterior leads , consider ischemia Abnormal ECG When compared with ECG of 23-JUN-2016 16:00, Premature atrial complexes are no longer Present Criteria for Inferior-posterior infarct are no longer Present QT has shortened EKG on admission 06/23/16: Sinus rhythm with Premature atrial complexes Left ventricular hypertrophy with repolarization abnormality ST depression in Anterior leads , consider ischemia 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 Villavicencio: * -- Conclusions -- * Normal LV chamber size and wall thickness. * Normal LV systolic function, EF 60-65%. * No segmental left ventricular wall motion abnormalities are noted. * Grade I diastolic dysfunction. * Mild mitral regurgitation. * Mild tricuspid regurgitation. * Mild left atrial enlargement. Chest xray On admission: IMPRESSION: Chronic fibrotic change with a mild superimposed component of pulmonary vasculature congestion. There are no focal infiltrates Abdomen/pelvis CT: 1. No definite bowel wall thickening or obstruction.. 2. Cholelithiasis. No gallbladder wall thickening.. 3. Normal appendix. 4. Colonic diverticulosis without evidence for acute diverticulitis. Labs - Blood cultures - Positive x 2 with Gram Negative Bacilli Last 24 Hours Test 06/24/16 09:50 06/25/16 07:46 06/25/16 08:21 Total Creatine Kinase 49 U/L Creatine Kinase MB 1.3 ng/ml 1.3 ng/ml Creatine Kinase MB Ratio 2.7 Troponin I 0.080 ng/ml 0.045 ng/ml White Blood Count 4.23 K/uL Red Blood Count 3.81 M/uL Hemoglobin 11.0 g/dL Hematocrit 32.9 % Mean Corpuscular Volume 86.4 fL Mean Corpuscular Hemoglobin 28.9 pg Mean Corpuscular Hemoglobin Concent 33.4 g/dl RDW Standard Deviation 44.4 fL RDW Coefficient of Variation 14.1 % Platelet Count 103 K/uL Mean Platelet Volume 9.8 fL Sodium Level 142 mmol/L Potassium Level 4.0 mmol/L Chloride Level 112 mmol/L Carbon Dioxide Level 22 mmol/L Anion Gap 8.0 mmol/L Blood Urea Nitrogen 17 mg/dl Creatinine 1.00 mg/dl Est Creatinine Clear Calc Drug Dose 47.9 ml/min Estimated GFR () 65.2 Estimated GFR (Non- 56.2 BUN/Creatinine Ratio 16.5 Random Glucose 108 mg/dl Calcium Level 8.6 mg/dl Assessment & Plan 1. Urosepsis -continue antibiotics per hospitalist -positive blood cultures -no evidence of valvular vegetation on echo 2. minimally elevated troponin secondary to urosepsis, tachycardia and CHASE -not indicative of ACS -no symptoms of CP or SOB -normal LV function without wall motion abnormalities on echo. -chronically abnormal EKG with ST/T wave abnormality in anterior and lateral leads, likely LVH with repolarization 3. History of CAD s/p RCA stent in 2009 with repeat cath in 01/2014 and 07/2014 in setting of NSTEMI with 100% RCA occlusion with collaterals. Med management recommended. -Normal LV function. F/U with Dr. Randolph -continue home cardiac medications on discharge. Stable cardiac signs/symptoms. No further cardiac testing warranted at this time. Discussed with Dr. Villavicencio. Patient is aware to follow up with her primary handyman, Dr. Randolph upon discharge. (Zaira Virgen PA-C) Cardiology attending: Pt seen and examined, agree with findings and assessment as per Zaira Mittal. No sign of active ischemia, No wall motion abnormality on echo. Pt asymptomatic. No further cardiac testing or intervention necessary. Would consider addition of amlodipine for bp control now that trending upwards. (Jose Enrique Villavicencio, D.O.)
[2016-06-25] MEDS: SODIUM CHLORIDE 0.9% 1000ML 1,000 ML IV SCH ×2 (12:00→23:18)
--- NOTE | 2016-06-25 12:40 | Progress Note ---
Medicine Progress Note Date & Time of Visit: Jun 25, 2016 at 12:30. Subjective Pt was seen and examined Sitting in bed comfortable with no distress Pt said that she feels fine she said that she is good to go home because she is back to baseline denies any chest pain, palpitation, dizziness and sob Objective Last 8 Hrs Date Time Temp Pulse Resp B/P Pulse Ox O2 Delivery O2 Flow Rate FiO2 06/25/16 12:00 Room Air 06/25/16 11:27 37.0 80 18 105/61 96 Room Air 06/25/16 08:03 37.0 93 18 147/85 90 06/25/16 08:00 Room Air Physical Exam: General- no acute distress, very pleasant Head- atraumatic Eyes- PERRL, EOMI ENT- oropharynx clear Neck- supple, no JVD Lungs- clear to auscultation and percussion Heart- regular rhythm, S1/S2 present, No tachy Abdomen- normal bowel sounds, soft, nontender Extremities- no calf tenderness Neuro- alert, oriented x 3; PERRL, EOMI; no facial palsy Skin- warm & dry Laboratory Results: Last 24 Hours Test 06/25/16 07:46 06/25/16 08:21 Creatine Kinase MB Ratio White Blood Count 4.23 K/uL Red Blood Count 3.81 M/uL Hemoglobin 11.0 g/dL Hematocrit 32.9 % Mean Corpuscular Volume 86.4 fL Mean Corpuscular Hemoglobin 28.9 pg Mean Corpuscular Hemoglobin Concent 33.4 g/dl RDW Standard Deviation 44.4 fL RDW Coefficient of Variation 14.1 % Platelet Count 103 K/uL Mean Platelet Volume 9.8 fL Sodium Level 142 mmol/L Potassium Level 4.0 mmol/L Chloride Level 112 mmol/L Carbon Dioxide Level 22 mmol/L Anion Gap 8.0 mmol/L Blood Urea Nitrogen 17 mg/dl Creatinine 1.00 mg/dl Est Creatinine Clear Calc Drug Dose 47.9 ml/min Estimated GFR () 65.2 Estimated GFR (Non- 56.2 BUN/Creatinine Ratio 16.5 Random Glucose 108 mg/dl Calcium Level 8.6 mg/dl Creatine Kinase MB 1.3 ng/ml Troponin I 0.045 ng/ml Assessment & Plan Sepsis secondary to Urinary Tract Infection -patient meets sepsis criteria on admission - +tachycardia, +leukocytosis, + hypotension with elevated lactic acid -given Levaquin in the ER - Preliminary Blood cx grew gram negative bacilli, waiting for final - Continue Rocephin IV -D/C IVF -afebrile and WBC trending down Urine Cx 1. ESCHERICHIA COLI Target Route Dose RX AB Cost M.I.C. IQ ------ ----- ------ -- ------ -------- - ------ TRIMET/SULFA S <=2/38 AMPICILLIN S <=8 AMPICILLIN/SUL S <=8/4 CEFAZOLIN S <=8 CEFOTAXIME S <=2 CEFTRIAXONE S <=1 CEFEPIME S <=4 CEFUROXIME S <=4 IMIPENEM S <=1 GENTAMICIN S <=4 TOBRAMYCIN S <=4 AMIKACIN S <=16 CIPROFLOXACIN S <=1 LEVOFLOXACIN S <=2 ERTAPENEM S <=1 NITROFURANTOIN S <=32 PIP/TAZO S <=16 Will change antibiotic to po upon dicharge Acute Kidney Injury superimposed on CKD stage 3 Creatine on admission was 1.6 Creatine today 1.4 Continue gentle IV fluid Continue monitor creatine Avoid nephrotoxic agents Resolved Elevation of Troponin mild elevation of troponin EKG did not show any significant ST changes Mostly likely secondary to sepsis due to elevated creatine Asymptomatic Echo Finding Conclusions -- * Normal LV chamber size and wall thickness. * Normal LV systolic function, EF 60-65%. * No segmental left ventricular wall motion abnormalities are noted. * Grade I diastolic dysfunction. * Mild mitral regurgitation. * Mild tricuspid regurgitation. * Mild left atrial enlargement. continue monitor pt in tele Continue asa and Plavix. Asymptomatic From cardiac standpoint, she is stable to go home. CAD s/p stenting -continue with ASA, plavix, statin -Creatine slightly increase -Will consider to start on a low dose BB once BB stable -As per cardio continue current management -Stable to discharge DVT ppx -subq heparin Code Status Full code Consultants: cardiology Current Inpatient Medications: Current Inpatient Medications Medications (Trade) Dose Ordered Sig/Jim Route Start Time Stop Time Status Last Admin Dose Admin Heparin Sodium (Porcine) (Heparin Sq 5000 Unit/0.5ml) 5,000 unit Q8 SQ 06/23/16 23:00 07/23/16 22:59 06/25/16 06:17 5,000 UNIT Acetaminophen (Tylenol Tab) 650 mg Q4H PRN PO 06/23/16 19:30 07/23/16 19:29 06/23/16 22:14 650 MG Al Hydrox/Mg Hydrox/Simethicone (Maalox Max Susp) 15 ml Q4H PRN PO 06/23/16 19:30 07/23/16 19:29 Magnesium Hydroxide (Milk Of Magnesia Susp) 30 ml Q12H PRN PO 06/23/16 19:30 07/23/16 19:29 Ondansetron HCl (Zofran Inj) 4 mg Q6H PRN IV 06/23/16 19:30 07/23/16 19:29 Aspirin (Ecotrin Tab) 81 mg QAM PO 06/24/16 09:00 07/24/16 08:59 06/25/16 08:09 81 MG Polyethylene 17 gm 17 gm DAILY PRN PO 06/23/16 19:30 07/23/16 19:29 Ceftriaxone Sodium/Dextrose (Rocephin Inj/ Dextrose Add-[place] 50ML) 50 ml @ 100 mls/hr DAILY@2200 IV 06/23/16 23:00 07/03/16 22:59 06/24/16 21:04 100 MLS/HR Atorvastatin Calcium (Lipitor Tab) 40 mg DAILY PO 06/24/16 09:00 07/24/16 08:59 06/25/16 08:09 40 MG Clopidogrel Bisulfate (plAVix TAB) 75 mg QAM PO 06/24/16 09:00 07/24/16 08:59 06/25/16 08:09 75 MG Duloxetine HCl (Cymbalta Cap) 30 mg DAILY PO 06/24/16 09:00 07/24/16 08:59 06/25/16 08:09 30 MG Magnesium Oxide (Mag-Ox Tab) 400 mg BID PO 06/23/16 23:00 07/23/16 22:59 06/25/16 08:08 400 MG Ranitidine HCl 150 mg 150 mg DAILY PO 06/24/16 09:00 07/24/16 08:59 06/25/16 08:09 150 MG Sodium Chloride (Nss 1000ml) 1,000 ml @ 80 mls/hr [id number] IV 06/23/16 22:30 07/23/16 22:29 06/24/16 23:30 80 MLS/HR Fluticasone Propionate (Flonase Nasal [place]) 1 sprays BID NA 06/23/16 23:00 07/23/16 22:59 06/24/16 00:04 1 SPRAYS
[2016-06-25] MEDS ORDERED: LABETALOL HCL IV 5 MG/ML 20ML IV ONE (18:30)
[2016-06-25] MEDS: CEFTRIAXONE SOD INJ 1 GM in DEXTROSE 5% ADD-VANTAGE 50ML 50 ML IV SCH (20:57)
[2016-06-26] VITALS (7 sets, daily range): BP systolic 146–165; BP diastolic 67–85; PULSE 76–84; TEMP 36.5–36.7; O2SAT 93–95
[2016-06-26] MEDS: HEPARIN SOD 5000 UNIT/0.5 ML CARP SQ SCH ×2 (06:12→14:56)
[2016-06-26] MEDS: FLUTICASONE PROPIONATE NA SPR 16 GM BTL SCH (09:15)
[2016-06-26] MEDS: ASPIRIN 81 MG ECTAB PO SCH (09:15)
[2016-06-26] MEDS: DULOXETINE (CYMBALTA) 30 MG CAP PO SCH (09:15)
[2016-06-26] MEDS: ATORVASTATIN 40 MG TAB PO SCH (09:15)
[2016-06-26] MEDS: MAGNESIUM OXIDE 400 MG TAB PO SCH (09:15)
[2016-06-26] MEDS: CLOPIDOGREL BISULFATE 75 MG TAB PO SCH (09:15)
[2016-06-26] MEDS: RANITIDINE HCL 150 MG TAB PO SCH (09:16)
[2016-06-26] MEDS: SODIUM CHLORIDE 0.9% 1000ML 1,000 ML IV SCH (14:51)
--- NOTE | 2016-06-26 15:13 | Progress Note ---
Medicine Progress Note Date & Time of Visit: Jun 26, 2016 at 14:41. Subjective Pt was seen and examined Sitting comfortable at the edge of the bed eating breakfast Pt said that she feels great Denies any chest pain palpitation, dizziness and SOB Objective Last 8 Hrs Date Time Temp Pulse Resp B/P Pulse Ox O2 Delivery O2 Flow Rate FiO2 06/26/16 12:00 94 Room Air 06/26/16 11:19 36.6 76 18 165/67 94 Room Air 06/26/16 08:00 93 Room Air 06/26/16 07:40 36.7 84 18 146/85 93 Room Air Physical Exam: General- no acute distress, very pleasant Head- atraumatic Eyes- PERRL, EOMI ENT- oropharynx clear Neck- supple, no JVD Lungs- clear to auscultation and percussion Heart- regular rhythm, S1/S2 present, No tachy Abdomen- normal bowel sounds, soft, nontender Extremities- no calf tenderness Neuro- alert, oriented x 3; PERRL, EOMI; no facial palsy Skin- warm & dry Assessment & Plan Sepsis secondary to Urinary Tract Infection -patient meets sepsis criteria on admission - +tachycardia, +leukocytosis, + hypotension with elevated lactic acid -given Levaquin in the ER - Preliminary Blood cx grew gram negative bacilli, waiting for final - Continue Rocephin IV -D/C IVF -afebrile and WBC trending down Urine Cx 1. ESCHERICHIA COLI Target Route Dose RX AB Cost M.I.C. IQ ------ ----- ------ -- ------ -------- - ------ TRIMET/SULFA S <=2/38 AMPICILLIN S <=8 AMPICILLIN/SUL S <=8/4 CEFAZOLIN S <=8 CEFOTAXIME S <=2 CEFTRIAXONE S <=1 CEFEPIME S <=4 CEFUROXIME S <=4 IMIPENEM S <=1 GENTAMICIN S <=4 TOBRAMYCIN S <=4 AMIKACIN S <=16 CIPROFLOXACIN S <=1 LEVOFLOXACIN S <=2 ERTAPENEM S <=1 NITROFURANTOIN S <=32 PIP/TAZO S <=16 Blood cx 1. ESCHERICHIA COLI Target Route Dose RX AB Cost M.I.C. IQ ------ ----- ------ -- ------ -------- - ------ TRIMET/SULFA S <=2/38 AMPICILLIN S <=8 AMPICILLIN/SUL S <=8/4 CEFAZOLIN S <=8 CEFOTAXIME S <=2 CEFTRIAXONE S <=1 CEFEPIME S <=4 CEFUROXIME S <=4 IMIPENEM S <=1 GENTAMICIN S <=4 TOBRAMYCIN S <=4 AMIKACIN S <=16 CIPROFLOXACIN S <=1 LEVOFLOXACIN S <=2 ERTAPENEM S <=1 PIP/TAZO S <=16 S = SENSITIVE I = INTERMEDIATE R = RESISTANT Will discharge on cipro 500mg BID to complete 14 days course Will repeat blood cx today and will follow up with PCP Dr. Evans on 07/01 at 8 :50am Acute Kidney Injury superimposed on CKD stage 3 Creatine on admission was 1.6 Creatine today 1.4 Continue gentle IV fluid Continue monitor creatine Avoid nephrotoxic agents Resolved Elevation of Troponin mild elevation of troponin EKG did not show any significant ST changes Mostly likely secondary to sepsis due to elevated creatine Asymptomatic Echo Finding Conclusions -- * Normal LV chamber size and wall thickness. * Normal LV systolic function, EF 60-65%. * No segmental left ventricular wall motion abnormalities are noted. * Grade I diastolic dysfunction. * Mild mitral regurgitation. * Mild tricuspid regurgitation. * Mild left atrial enlargement. continue monitor pt in tele Continue asa and Plavix. Asymptomatic From cardiac standpoint, she is stable to go home. CAD s/p stenting -continue with ASA, plavix, statin -Creatine slightly increase -Will consider to start on a low dose BB once BB stable -As per cardio continue current management -Stable to discharge DVT ppx -subq heparin during the hospital course Code Status Full code Consultants: cardiology Current Inpatient Medications: Current Inpatient Medications Medications (Trade) Dose Ordered Sig/Jim Route Start Time Stop Time Status Last Admin Dose Admin Heparin Sodium (Porcine) (Heparin Sq 5000 Unit/0.5ml) 5,000 unit Q8 SQ 06/23/16 23:00 07/23/16 22:59 06/26/16 06:12 5,000 UNIT Acetaminophen (Tylenol Tab) 650 mg Q4H PRN PO 06/23/16 19:30 07/23/16 19:29 06/23/16 22:14 650 MG Al Hydrox/Mg Hydrox/Simethicone (Maalox Max Susp) 15 ml Q4H PRN PO 06/23/16 19:30 07/23/16 19:29 Magnesium Hydroxide (Milk Of Magnesia Susp) 30 ml Q12H PRN PO 06/23/16 19:30 07/23/16 19:29 Ondansetron HCl (Zofran Inj) 4 mg Q6H PRN IV 06/23/16 19:30 07/23/16 19:29 Aspirin (Ecotrin Tab) 81 mg QAM PO 06/24/16 09:00 07/24/16 08:59 06/26/16 09:15 81 MG Polyethylene 17 gm 17 gm DAILY PRN PO 06/23/16 19:30 07/23/16 19:29 Ceftriaxone Sodium/Dextrose (Rocephin Inj/ Dextrose Add-[place] 50ML) 50 ml @ 100 mls/hr DAILY@2200 IV 06/23/16 23:00 07/03/16 22:59 06/25/16 20:57 100 MLS/HR Atorvastatin Calcium (Lipitor Tab) 40 mg DAILY PO 06/24/16 09:00 07/24/16 08:59 06/26/16 09:15 40 MG Clopidogrel Bisulfate (plAVix TAB) 75 mg QAM PO 06/24/16 09:00 07/24/16 08:59 06/26/16 09:15 75 MG Duloxetine HCl (Cymbalta Cap) 30 mg DAILY PO 06/24/16 09:00 07/24/16 08:59 06/26/16 09:15 30 MG Magnesium Oxide (Mag-Ox Tab) 400 mg BID PO 06/23/16 23:00 07/23/16 22:59 06/26/16 09:15 400 MG Ranitidine HCl 150 mg 150 mg DAILY PO 06/24/16 09:00 07/24/16 08:59 06/26/16 09:16 150 MG Sodium Chloride (Nss 1000ml) 1,000 ml @ 80 mls/hr [id number] IV 06/23/16 22:30 07/23/16 22:29 1/5/17 23:18 80 MLS/HR Fluticasone Propionate (Flonase Nasal [place]) 1 sprays BID NA 06/23/16 23:00 07/23/16 22:59 06/26/16 09:15 1 SPRAYS
[2016-06-26] MEDS ORDERED: CIPR-255 PO (15:17)
--- NOTE | 2016-06-26 15:20 | Discharge Instructions ---
Discharge Instructions Admission Reason for Admission: Elevated Troponin, Sepsis Discharge Discharge Diagnosis / Problem: Bacteremia, UTI Discharge Goals Goal(s): Decrease discomfort, Improve function, Improve disease control Activity Recommendations Activity Limitations: resume your previous activity (as tolerated) . Instructions / Follow-Up Instructions / Follow-Up Follow up appointment with Dr. Evans on 07/01 at 8:[address] Evans will follow up on your repeat blood cx Complete the course of the antibiotic Current Hospital Diet Patient's current hospital diet: AHA Diet (Heart Healthy) Discharge Diet Recommended Diet: AHA Diet (Heart Healthy) Pending Studies Studies pending at discharge: yes List of pending studies: Blood culture Medical Emergencies . Who to Call and When: Medical Emergencies: If at any time you feel your situation is an emergency, please call 911 immediately. . Non-Emergent Contact Non-Emergency issues call your: Primary Care Provider Call Non-Emergent contact if: you have a fever, you have any medication questions . . "Provider Documentation" section prepared by Ashlyn Guo. VTE Core Measure Inpt VTE Proph given/why not?: Unfractionated heparin SQ
--- NOTE | 2016-07-02 23:01 | Discharge Summary ---
Discharge Summary Admission Date: Jun 23, 2016 at 19:41 Discharge Date: Jun 26, 2016 Discharge Disposition: Home Principal Diagnosis: Elevated Troponin, Sepsis Secondary Diagnoses/Problems: Bacteremia, UTI Procedures: Interpretation Summary * Name: GAYE APONTE Study Date: 06/24/2016 12:56 PM BP: 144/71 mmHg * Patient Location: [facility]\\S\\[facility]\\S\\2 HR: 88 * : 1945 (M/d/yyyy) Gender: Female Height: 64 in * Age: 71 yrs Ethnicity: CA Weight: 145 lb * Ordering Physician: Ashlyn Guo * Referring Physician: Self, Referred * Performed By: Juno Rodarte RCS * * Reason For Study: Elevated troponins * BSA: 1.7 m2 * -- Conclusions -- * Normal LV chamber size and wall thickness. * Normal LV systolic function, EF 60-65%. * No segmental left ventricular wall motion abnormalities are noted. * Grade I diastolic dysfunction. * Mild mitral regurgitation. * Mild tricuspid regurgitation. * Mild left atrial enlargement. Procedure Details * A complete two-dimensional transthoracic echocardiogram was performed (2D, M- mode, Doppler and color flow Doppler). Left Ventricle * The left ventricle is normal in size. * There is normal left ventricular wall thickness. * Ejection Fraction = 60-65%. * Left ventricular systolic function is normal. * No segmental left ventricular wall motion abnormalities are noted. * The left ventricular wall motion is normal. Right Ventricle * The right ventricular cavity size is normal (basal dimension <4.2 cm in right ventricular apical 4-chamber view). * The right ventricular systolic function is normal as assessed by tricuspid annular plane systolic excursion (TAPSE) (normal >1.5 cm). Atria * The left atrium is mildly dilated. * Right atrial size is normal. * No ASD detected; PFO is not assessed. Mitral Valve * The mitral valve anatomy is normal. * There is no mitral valve stenosis. * There is mild mitral regurgitation. Tricuspid Valve * The tricuspid valve anatomy is normal. * There is no tricuspid stenosis. * There is mild tricuspid regurgitation. Aortic Valve * The aortic valve is normal in structure and function. Pulmonic Valve * The pulmonary valve is not well seen, but the Doppler examination is normal without significant regurgitation or stenosis. Great Vessels * The aortic root is normal size. Pericardium/Pleural * There is no pericardial effusion. Left Ventricular Diastolic Function * Grade I diastolic dysfunction, (abnormal relaxation pattern). MMode 2D Measurements and Calculations IVSd 1.0 cm IVSs 1.5 cm LVIDd 4.6 cm LVIDs 3.1 cm LVPWd 1.0 cm LVPWs 1.6 cm IVS/LVPW 1.0 FS 32.3 % EDV(Teich) 97.2 ml ESV(Teich) 38.3 ml EF(Teich) 60.7 % EDV(cubed) 97.2 ml ESV(cubed) 30.1 ml EF(cubed) 69.0 % % IVS thick 44.1 % % LVPW thick 55.9 % LV mass(C)d 163.8 grams LV mass(C)dI 96.0 grams/m\\S\\2 LV mass(C)s 172.0 grams LV mass(C)sI 100.8 grams/m\\S\\2 CO(Teich) 4.9 l/min CI(Teich) 2.9 l/min/m\\S\\2 SV(Teich) 59.0 ml SI(Teich) 34.6 ml/m\\S\\2 CO(cubed) 5.6 l/min CI(cubed) 3.3 l/min/m\\S\\2 SV(cubed) 67.1 ml SI(cubed) 39.3 ml/m\\S\\2 Ao root diam 3.5 cm Ao root area 9.5 cm\\S\\2 ACS 2.0 cm LA dimension 4.5 cm LA/Ao 1.3 LVAd ap4 23.9 cm\\S\\2 LVLd ap4 7.9 cm EDV(MOD-sp4) 61.0 ml LVAs ap4 13.2 cm\\S\\2 LVLs ap4 6.2 cm ESV(MOD-sp4) 24.0 ml EF(MOD-sp4) 60.7 % LVAd ap2 25.6 cm\\S\\2 LVLd ap2 8.1 cm EDV(MOD-sp2) 68.0 ml LVAs ap2 13.8 cm\\S\\2 LVLs ap2 6.4 cm ESV(MOD-sp2) 26.0 ml EF(MOD-sp2) 61.8 % CO(MOD-sp4) 3.1 l/min CI(MOD-sp4) 1.8 l/min/m\\S\\2 SV(MOD-sp4) 37.0 ml SI(MOD-sp4) 21.7 ml/m\\S\\2 CO(MOD-sp2) 3.5 l/min CI(MOD-sp2) 2.0 l/min/m\\S\\2 SV(MOD-sp2) 42.0 ml SI(MOD-sp2) 24.6 ml/m\\S\\2 Doppler Measurements and Calculations MV E max jenny 62.7 cm/sec MV A max jenny 105.6 cm/sec MV E/A 0.59 MV P1/2t max jenny 67.3 cm/sec MV P1/2t 95.7 msec MVA(P1/2t) 2.3 cm\\S\\2 MV dec slope 206.2 cm/sec\\S\\2 MV dec time 0.25 sec Ao V2 max 132.3 cm/sec Ao max PG 7.0 mmHg Ao max PG (full) 1.3 mmHg LV V1 max PG 5.8 mmHg LV V1 max 119.9 cm/sec PA V2 max 104.8 cm/sec PA max PG 4.4 mmHg TR max jenny 307.1 cm/sec Created: Initialized: 06/24/16; 1502 <Electronically signed by Jose Enrique Villavicencio D.O.> Signed: 07/01/16 0920 Jose Enrique Villavicencio D.O. The status of this report is Signed. Draft = Not yet reviewed or approved by Vibrating Screen Operator. Signed = Reviewed and approved by Vibrating Screen Operator. Consultations: cardiology Medication Reconciliation New Medications: Ciprofloxacin Hcl (Cipro) 500 Mg Tab 500 MG PO BID for 10 Days, #20 TAB Continued Medications: Albuterol (Ventolin Hfa) Aers 2 PUFFS INH QID PRN for Wheezing Aspirin (Aspirin Ec) 81 Mg Tab 81 MG PO DAILY Atorvastatin (Atorvastatin Calcium) 40 Mg Tab 40 MG PO DAILY Baclofen (Baclofen) 20 Mg Tab 20 MG PO BID PRN for Muscle Spasm Cholecalciferol (Vitamin D3) 2,000 Unit Tab 2000 INTER.UNIT PO DAILY Clopidogrel Bisulfate (Clopidogrel) 75 Mg Tab 75 MG PO QAM Coenzyme Q10 (Ubidecarenone) (Co Q-10) 200 Mg Cap 200 MG PO DAILY Duloxetine HCl (Duloxetine HCl) 30 Mg Cap 30 MG PO DAILY Fenofibrate Micronized (Tricor) 134 Mg Cap 134 MG PO DAILY Magnesium Oxide (Mag-Ox) 400 Mg Tab 400 MG PO BID, TAB [place]-3 Fatty Acids ([place] 3) 1 Cap Cap 4000 MG PO DAILY Oxycodone/Acetaminophen 5MG/325MG (Percocet 5MG/325MG) Tab 1 TABLET PO TID PRN for Pain, TAB Ranitidine HCl (Ranitidine HCl) 150 Mg Tab 150 MG PO DAILY Admission Information HPI (per Admitting provider): This is a 71 year old female with PMH of CAD s/p stents, hx. of CVA, CKD stage 3 , mild COPD presents with dizziness and low blood pressure - states that she was feeling dizzy while walking her dog today. She then went home and her blood pressure was checked by family members and was noted to have SBP between 80-90. She was seen at PCP, Dr. Evans's office later in the day and found to have blood pressure 60/40 and tachycardic and was sent over to the ER for further evaluation. In the ER, she was given IVFs with good response to her blood pressure - UA performed showing UTI; patient states that she did note hematuria on Wednesday (06/21). Denies chest pain, has chronic SOB, which is about at her baseline; improvement with inhaler usage. Currently, her only complaint is weakness. Physical Exam (per Admitting): General Appearance: + pertinent finding (+lethargic/weak) Head: normocephalic, atraumatic Eyes: normal inspection ENT: hearing grossly normal Neck: supple Respiratory/Chest: lungs clear, normal breath sounds, no respiratory distress, no accessory muscle use Cardiovascular: no edema, no murmur, + tachycardia Abdomen/GI: normal bowel sounds, non tender, soft Extremities/Musculoskelatal: normal inspection, no calf tenderness, normal capillary refill, no pedal edema Neurologic/Psych: no motor/sensory deficits, alert, normal mood/affect Skin: normal color Lymphatic: no adenopathy Hospital Course Sepsis secondary to Urinary Tract Infection -patient meets sepsis criteria on admission - +tachycardia, +leukocytosis, + hypotension with elevated lactic acid -given Levaquin in the ER - Preliminary Blood cx grew gram negative bacilli, waiting for final - Continue Rocephin IV -D/C IVF -afebrile and WBC trending down Urine Cx 1. ESCHERICHIA COLI Target Route Dose RX AB Cost M.I.C. IQ ------ ----- ------ -- ------ -------- - ------ TRIMET/SULFA S <=2/38 AMPICILLIN S <=8 AMPICILLIN/SUL S <=8/4 CEFAZOLIN S <=8 CEFOTAXIME S <=2 CEFTRIAXONE S <=1 CEFEPIME S <=4 CEFUROXIME S <=4 IMIPENEM S <=1 GENTAMICIN S <=4 TOBRAMYCIN S <=4 AMIKACIN S <=16 CIPROFLOXACIN S <=1 LEVOFLOXACIN S <=2 ERTAPENEM S <=1 NITROFURANTOIN S <=32 PIP/TAZO S <=16 Blood cx 1. ESCHERICHIA COLI Target Route Dose RX AB Cost M.I.C. IQ ------ ----- ------ -- ------ -------- - ------ TRIMET/SULFA S <=2/38 AMPICILLIN S <=8 AMPICILLIN/SUL S <=8/4 CEFAZOLIN S <=8 CEFOTAXIME S <=2 CEFTRIAXONE S <=1 CEFEPIME S <=4 CEFUROXIME S <=4 IMIPENEM S <=1 GENTAMICIN S <=4 TOBRAMYCIN S <=4 AMIKACIN S <=16 CIPROFLOXACIN S <=1 LEVOFLOXACIN S <=2 ERTAPENEM S <=1 PIP/TAZO S <=16 S = SENSITIVE I = INTERMEDIATE R = RESISTANT Will discharge on cipro 500mg BID to complete 14 days course Will repeat blood cx today and will follow up with PCP Dr. Evans on 07/01 at 8 :50am Acute Kidney Injury superimposed on CKD stage 3 Creatine on admission was 1.6 Creatine today 1.4 Continue gentle IV fluid Continue monitor creatine Avoid nephrotoxic agents Resolved Elevation of Troponin mild elevation of troponin EKG did not show any significant ST changes Mostly likely secondary to sepsis due to elevated creatine Asymptomatic Echo Finding Conclusions -- * Normal LV chamber size and wall thickness. * Normal LV systolic function, EF 60-65%. * No segmental left ventricular wall motion abnormalities are noted. * Grade I diastolic dysfunction. * Mild mitral regurgitation. * Mild tricuspid regurgitation. * Mild left atrial enlargement. continue monitor pt in tele Continue asa and Plavix. Asymptomatic From cardiac standpoint, she is stable to go home. CAD s/p stenting -continue with ASA, plavix, statin -Creatine slightly increase -Will consider to start on a low dose BB once BB stable -As per cardio continue current management -Stable to discharge DVT ppx -subq heparin during the hospital course Code Status Full code Total time spent on discharge = 35 minutes This includes examination of the patient, discharge planning, medication reconciliation, and communication with other providers. Discharge Instructions Discharge Instructions Admission Reason for Admission: Elevated Troponin, Sepsis Discharge Discharge Diagnosis / Problem: Bacteremia, UTI Discharge Goals Goal(s): Decrease discomfort, Improve function, Improve disease control Activity Recommendations Activity Limitations: resume your previous activity (as tolerated) . Instructions / Follow-Up Instructions / Follow-Up Follow up appointment with Dr. Evans on 07/01 at 8:[address] Evans will follow up on your repeat blood cx Complete the course of the antibiotic Current Hospital Diet Patient's current hospital diet: AHA Diet (Heart Healthy) Discharge Diet Recommended Diet: AHA Diet (Heart Healthy) Pending Studies Studies pending at discharge: yes List of pending studies: Blood culture Medical Emergencies . Who to Call and When: Medical Emergencies: If at any time you feel your situation is an emergency, please call 911 immediately. . Non-Emergent Contact Non-Emergency issues call your: Primary Care Provider Call Non-Emergent contact if: you have a fever, you have any medication questions . . "Provider Documentation" section prepared by Ashlyn Guo. VTE Core Measure Inpt VTE Proph given/why not?: Unfractionated heparin SQ Additional Copies To Kylie Evans M.D.
== END 2016-06-26 16:49 | disposition home or self-care (01) | DRG 872 ==
LOC: ENRESERVTM → ENRESERVDT → EDBD 15:49 → C.EDC 15:51 → C.2T 19:41
PROVIDERS: ADMIT Family Medicine; ATTEND Internal Medicine
DX: A41.9 Sepsis, unspecified organism (principal); N39.0 Urinary tract infection, site not specified; N17.9 Acute kidney failure, unspecified; I50.22 Chronic systolic (congestive) heart failure; R31.9 Hematuria, unspecified; I25.10 Atherosclerotic heart disease of native coronary artery without angina pectoris; Z95.5 Presence of coronary angioplasty implant and graft; Z86.73 Personal history of transient ischemic attack (TIA), and cerebral infarction without residual deficits; J44.9 Chronic obstructive pulmonary disease, unspecified; J45.909 Unspecified asthma, uncomplicated; I25.2 Old myocardial infarction; Z90.13 Acquired absence of bilateral breasts and nipples; Z90.710 Acquired absence of both cervix and uterus; Z80.9 Family history of malignant neoplasm, unspecified; Z82.49 Family history of ischemic heart disease and other diseases of the circulatory system; Z87.891 Personal history of nicotine dependence; Z88.6 Allergy status to analgesic agent; Z88.8 Allergy status to other drugs, medicaments and biological substances; Z79.82 Long term (current) use of aspirin; Z79.899 Other long term (current) drug therapy; N18.3 Chronic kidney disease, stage 3 (moderate); Z87.01 Personal history of pneumonia (recurrent); Z85.3 Personal history of malignant neoplasm of breast; I08.1 Rheumatic disorders of both mitral and tricuspid valves; B96.20 Unspecified Escherichia coli [E. coli] as the cause of diseases classified elsewhere; E86.0 Dehydration; E78.5 Hyperlipidemia, unspecified

== ENCOUNTER 2017-08-16 12:07 | Emergency (ER) | payer OTHER ==
[~2017-08-16] VITALS: Ht 162.6 cm; Wt 64.1 kg
[~2017-08-16 12:07] MED LIST changes: +ASPI81TA28 PO; -BACL10TA PO; -CEPH500C2 PO; +CHOL20005 PO; +CIPR-255 PO; -CLOP1TAB15 PO; +COEN1CAP37 PO; -CYM/30 PO; +CYM30 PO; +FENO134C PO; -FENO134C2 PO; -IRBE75TA2 PO; +LPT40 PO; +LRS20 PO; +MAGN400T5 PO; +OMEG12006 PO; +PLV75 PO; +ZNT150 PO
[2017-08-16 12:35] VITALS: TEMP 36.7; Ht 162.6 cm; Wt 64.1 kg
[2017-08-16 13:49] VITALS: O2SAT 94
[2017-08-16 14:09] LABS: HEMATOCRIT 37.4 % (37-47); HEMOGLOBIN 12.7 g/dL (12.0-16.0); MEAN CORPUSCULAR HEMOGLOBIN 29.5 pg (25-34); RED CELL DISTRIBUTION WIDTH CV 13.8 % (11.5-14.5); RED CELL DISTRIBUTION WIDTH SD 43.7 fL (36.4-46.3); WHITE BLOOD COUNT 8.14 K/uL (4.8-10.8)
--- NOTE | 2017-08-16 14:15 | DIAGNOSTIC IMAGING REPORT ---
CHEST ONE VIEW PORTABLE CLINICAL HISTORY: 72 years-old Female presenting with chest pain. TECHNIQUE: Portable upright AP view of the chest was obtained. COMPARISON: 06/23/2016. FINDINGS: Atherosclerosis of aortic arch. Cardiac silhouette enlarged. Reticular and hazy bibasilar opacities increased from prior. Layering pleural effusions are difficult to exclude. No pneumothorax. Degenerative changes of the thoracic spine. Upper abdomen normal. IMPRESSION: 1. Hazy and reticular bibasilar opacities could represent pulmonary edema superimposed on chronic lung disease or aspiration. 2. Cardiomegaly. Electronically signed by: Jacob Myles M.D. 08/16/2017 2:14 PM Dictated Date/Time: 08/16/2017 2:12 PM
[2017-08-16] MEDS ORDERED: VNTHFA/IN INH (14:20)
[2017-08-16 14:21] LABS: BASO % 0.2 %; BASO ABS # 0.02 K/uL (0-0.2); EOS % 2.3 %; EOS ABS # 0.19 K/uL (0-0.5); IG# 0.02 K/uL (0.00-0.02); LYMPH % 11.8 %; LYMPH ABS # 0.96 K/uL (1.2-3.4); MEAN PLATELET VOLUME 9.6 fL (7.4-10.4); MONO % 11.3 %; MONO ABS # 0.92 K/uL (0.11-0.59); NEUT % 74.2 %; NEUT ABS # 6.03 K/uL (1.4-6.5); PLATELET COUNT 194 K/uL (130-400)
[2017-08-16 14:29] LABS: ALBUMIN 3.9 gm/dl (3.4-5.0); CALCIUM 9.5 mg/dl (8.5-10.1); CREATININE 1.16 mg/dl (0.60-1.20); POTASSIUM 4.5 mmol/L (3.5-5.1)
[2017-08-16] MEDS ORDERED: OPTIRAY 320 IV PRN (14:30)
[2017-08-16 14:31] LABS: CKMB 1.2 ng/ml (0.5-3.6); TOTAL PROTEIN 7.6 gm/dl (6.4-8.2)
[2017-08-16] MEDS ORDERED: MoRPHine SULFATE 4 MG/ML 1 ML CARP\\VIAL IV STA (14:39)
[2017-08-16 14:56] LABS: PTT PATIENT 26.5 SECONDS (21.0-31.0)
[2017-08-16 15:17] LABS: INFLUENZA B ANTIGEN Neg for Influ B (NEG)
--- NOTE | 2017-08-16 15:23 | DIAGNOSTIC IMAGING REPORT ---
CT ANGIOGRAM OF THE CHEST CLINICAL HISTORY: Atypical chest and back pain. Shortness of breath. COMPARISON STUDY: CT scan dated 03/24/2016, chest x-ray dated August 16, 2017 TECHNIQUE: Following the IV administration of 94 mL of Optiray-320, CT angiogram of the thorax was performed from the thoracic inlet to the lung bases utilizing the pulmonary embolus protocol. Images are reviewed in the axial, sagittal, and coronal planes. IV contrast was administered without complication. MIP imaging was performed. A dose lowering technique was utilized adhering to the principles of ALARA. CT DOSE: FINDINGS: There are mildly enlarged mediastinal and right hilar lymph nodes, similar to the preceding study. There are mild to moderate atheromatous changes within the descending thoracic aorta. There were no pulmonary artery filling defects to indicate acute pulmonary embolism. No pleural effusions are visualized. There is severe pulmonary emphysema. There is lower lung zone subpleural reticulation, groundglass opacity, and dependent cystic change. A filling defect within the mainstem bronchus and bronchus intermedius likely represents mucus. IMPRESSION: 1. No evidence of acute pulmonary embolism 2. Severe emphysema 3. Chronic lung disease with lower lung zone predominance, groundglass opacities and cystic change 4. Filling defect within the main stem bronchus and bronchus intermedius, likely representing adherent mucus 5. Stable mild mediastinal and hilar lymphadenopathy Electronically signed by: Mark García M.D. 08/16/2017 3:22 PM Dictated Date/Time: 08/16/2017 3:17 PM
--- NOTE | 2017-08-16 15:29 | DIAGNOSTIC IMAGING REPORT ---
ABD/PELVIS IV CONTRAST ONLY CLINICAL HISTORY: 72 years-old Female presenting with upper abd/chest pain, sob. TECHNIQUE: Multidetector CT of the abdomen and pelvis was performed after the administration of intravenous contrast. IV contrast: 94 mL of Optiray 320. A dose lowering technique was used consistent with the principles of ALARA (as low as reasonably achievable). COMPARISON: 06/23/2016. CT DOSE (mGy.cm): The estimated cumulative dose is 530.31 mGy.cm. FINDINGS: [employer] Officer topogram: Unremarkable. Lung bases: Extensive reticular and cystic change at the lung bases which is peripheral though not entirely subpleural. Extensive bronchial wall thickening and peribronchovascular hazy opacities in the lower lungs. Multichamber enlargement of the heart. Aortic valve and coronary artery calcification. No pericardial or pleural effusion. Liver: Normal morphology. No liver lesion. Patent hepatic vasculature. Biliary: No intrahepatic or extrahepatic biliary ductal dilatation. Gallbladder physiologically distended and containing gallstones. No significant gallbladder wall thickening or pericholecystic inflammatory change. Pancreas: Mild parenchymal atrophy. Spleen: Normal. Adrenal glands: Normal. Kidneys and ureters: Multiple hypodensities throughout the kidneys, likely simple cysts but many too small to characterize. No hydronephrosis. Renal vascular calcification. No nephrolithiasis. Ureters normal. Bladder: Mild circumferential bladder wall thickening of the bladder is under distended. Ligamentous laxity suggested by extension of the bladder along the posterior lateral pelvis. Pelvic organs: Uterus surgically absent. No adnexal masses. Slight asymmetry of the right vulva may relate to prominent Bartholin duct cyst though this is not well demonstrated on CT. Bowel: Diverticulosis of the sigmoid colon with suggestion of sigmoid colon wall thickening, likely indicating chronic diverticular disease. Diverticulosis also noted throughout the colon. The appendix is normal. No bowel obstruction. Duodenal diverticulum noted at the level of the duodenal bulb. Peritoneal cavity: No free fluid or intraperitoneal gas. Lymph nodes: No enlarged lymph nodes in the abdomen or pelvis. Vasculature: Atherosclerosis of the abdominal aorta, which demonstrates focal aneurysmal/pseudoaneurysmal dilatation along the right posterior lateral aspect at the level of the aortic hiatus (series 6 image 107). This may represent a penetrating ulcer. No surrounding inflammatory change or hematoma to suggest recent or depending rupture. Abdominal wall: Normal. Musculoskeletal: Degenerative changes of the spine. Osteopenia. IMPRESSION: 1. Extensive bibasilar dependent reticular and groundglass opacities as well as cystic change. This is not entirely subpleural and does not appear characteristic of honeycombing. Differential considerations include chronic aspiration, underlying connective tissue disorder, or fibrosis. Superimposed acute infection is difficult to exclude. 2. Cholelithiasis without convincing evidence of cholecystitis or biliary ductal dilatation. 3. Mild circumferential bladder wall thickening could be due to underdistention or cystitis. Correlate with urinalysis. 4. Pancolonic diverticulosis with chronic diverticular disease of the sigmoid colon. No acute diverticulitis. 5. Penetrating ulcer in the abdominal aorta is suspected at the level of the aortic hiatus. No evidence of rupture. Electronically signed by: Jacob Myles M.D. 08/16/2017 3:27 PM Dictated Date/Time: 08/16/2017 3:19 PM
--- NOTE | 2017-08-16 17:02 | EMERGENCY ROOM VISIT NOTE ---
ED Visit Note First contact with patient: 13:31 The patient was seen and examined with Hiral Swenson PA-C. I agree with the history, physical and findings. Please see the note for disposition and details.
[2017-08-16] MEDS ORDERED: CEPH500C PO (17:05)
--- NOTE | 2017-08-16 17:07 | EMERGENCY ROOM VISIT NOTE ---
History First contact with patient: 13:31 Chief Complaint: RESPIRATORY PROBLEMS Stated Complaint: TROUBLE BREATHING, PAIN Nursing Triage Summary: pt reports trouble breathing and pain in bilat upper abd and back. pt reports pain and sob for some time worse last couple days . denies anything worsening sx such as moving taking deep breath or coughing History of Present Illness The patient is a 72 year old female who presents to the Emergency Room with complaints of "pain from her head to her toes." The patient reports that she has pain all over for "a while." The patient admits that she has had this pain for several months but feels it has worsened over the past few days. The pain is in her chest, upper abdomen, back but she does report generalized body aches as well. She admits to a history of fibromyalgia and arthritis. She reports some shortness of breath. She does report a history of cardiac issues. She has had cardiac stenting in the past and has had a "mini stroke." She denies any fevers, recent illness, cough, nausea/vomiting, changes in her bowel movements or urinary symptoms. She rates her discomfort a 7/10. Review of Systems A complete 10 point review of systems was reviewed with the patient with pertinent positives and negatives as per history of present illness. All else were negative. Past Medical/Surgical History Medical Problems: (1) Asthma (2) Coronary artery disease (3) Emphysema (4) NSTEMI (non-ST elevated myocardial infarction) (5) TIA (transient ischemic attack) Surgical Problems: (1) H/O bilateral mastectomy (2) H/O cardiac catheterization (3) H/O percutaneous transluminal coronary angioplasty (4) H/O: hysterectomy (5) Stented coronary artery Family History Cancer Heart disease Hypertension Social History Smoking Status: Never Smoker Alcohol Use: none Marital Status: Housing Status: lives alone Occupation Status: retired Current/Historical Medications Scheduled Aspirin (Aspirin Ec), 81 MG PO DAILY Atorvastatin (Lipitor), 40 MG PO DAILY Cephalexin Monohydrate (Keflex), 500 MG PO BID Cholecalciferol (Vitamin D3), 2,000 INTER.UNIT PO DAILY Clopidogrel Bisulfate (Clopidogrel), 75 MG PO QAM Coenzyme Q10 (Ubidecarenone) (Co Q-10), 200 MG PO DAILY Duloxetine HCl (Duloxetine HCl), 30 MG PO DAILY Fenofibrate Micronized (Tricor), 134 MG PO DAILY Magnesium Oxide (Mag-Ox), 400 MG PO BID [place]-3 Fatty Acids ([place] 3), 4,000 MG PO DAILY Ranitidine HCl (Ranitidine HCl), 150 MG PO DAILY Scheduled PRN Albuterol Hfa (Ventolin Hfa), 2-4 PUFFS INH Q6H PRN for SOB/Wheezing Baclofen (Baclofen), 20 MG PO BID PRN for Muscle Spasm Oxycodone/Acetaminophen 5MG/325MG (Percocet 5MG/325MG), 1 TABLET PO TID PRN for Pain Physical Exam Vital Signs Date Time Temp Pulse Resp B/P (MAP) Pulse Ox O2 Delivery O2 Flow Rate FiO2 08/16/17 17:37 08/16/17 17:17 88 19 127/79 91 Room Air 08/16/17 16:20 86 18 164/79 97 08/16/17 14:30 84 20 153/84 94 Room Air 08/16/17 13:56 83 20 172/94 92 Room Air 08/16/17 13:51 87 08/16/17 13:49 94 Room Air 08/16/17 12:35 36.7 84 18 137/71 97 Room Air Physical Exam VITALS: Vitals are noted on the nurse's note and reviewed by myself. Vital signs stable. GENERAL: This is a 72-year-old female, in no acute distress, nondiaphoretic, well-developed well-nourished. SKIN: The skin was without rashes. EARS: External auditory canals clear, tympanic membranes pearly cohen without erythema or effusion bilaterally. EYES: Pupils equal round and reactive to light and accommodation. MOUTH: Mucous membranes moist. Tonsils are not enlarged. Pharynx without erythema or exudate. NECK: Supple without nuchal rigidity. No lymphadenopathy. HEART: Regular rate and rhythm without murmurs gallops or rubs. LUNGS: Clear to auscultation bilaterally without wheezes, rales or rhonchi. No retractions or accessory muscle use. ABDOMEN: Positive bowel sounds x 4. There is mild tenderness across the upper abdomen. No guarding or rebound tenderness. MUSCULOSKELETAL: Strength 5/5 throughout. NEURO: Patient was alert and oriented to person place and time. Medical Decision & Procedures ER Provider Diagnostic Interpretation: CHEST ONE VIEW PORTABLE IMPRESSION: 1. Hazy and reticular bibasilar opacities could represent pulmonary edema superimposed on chronic lung disease or aspiration. 2. Cardiomegaly. CT ANGIOGRAM OF THE CHEST IMPRESSION: 1. No evidence of acute pulmonary embolism 2. Severe emphysema 3. Chronic lung disease with lower lung zone predominance, groundglass opacities and cystic change 4. Filling defect within the main stem bronchus and bronchus intermedius, likely representing adherent mucus 5. Stable mild mediastinal and hilar lymphadenopathy ABD/PELVIS IV CONTRAST ONLY IMPRESSION: 1. Extensive bibasilar dependent reticular and groundglass opacities as well as cystic change. This is not entirely subpleural and does not appear characteristic of honeycombing. Differential considerations include chronic aspiration, underlying connective tissue disorder, or fibrosis. Superimposed acute infection is difficult to exclude. 2. Cholelithiasis without convincing evidence of cholecystitis or biliary ductal dilatation. 3. Mild circumferential bladder wall thickening could be due to underdistention or cystitis. Correlate with urinalysis. 4. Pancolonic diverticulosis with chronic diverticular disease of the sigmoid colon. No acute diverticulitis. 5. Penetrating ulcer in the abdominal aorta is suspected at the level of the aortic hiatus. No evidence of rupture. Laboratory Results 08/16/17 13:43 Red Blood Count 4.30, Mean Corpuscular Volume 87.0, Mean Corpuscular Hemoglobin 29.5, Mean Corpuscular Hemoglobin Concent 34.0, Mean Platelet Volume 9.6, Neutrophils (%) (Auto) 74.2, Lymphocytes (%) (Auto) 11.8, Monocytes (%) (Auto) 11.3, Eosinophils (%) (Auto) 2.3, Basophils (%) (Auto) 0.2, Neutrophils # (Auto ) 6.03, Lymphocytes # (Auto) 0.96, Monocytes # (Auto) 0.92, Eosinophils # (Auto ) 0.19, Basophils # (Auto) 0.02 08/16/17 13:43 Test 08/16/17 13:43 08/16/17 13:54 08/16/17 14:30 08/16/17 14:35 White Blood Count 8.14 K/uL (4.8-10.8) Red Blood Count 4.30 M/uL (4.2-5.4) Hemoglobin 12.7 g/dL (12.0-16.0) Hematocrit 37.4 % (37-47) Mean Corpuscular Volume 87.0 fL (80-100) Mean Corpuscular Hemoglobin 29.5 pg (25-34) Mean Corpuscular Hemoglobin Concent 34.0 g/dl (32-36) Platelet Count 194 K/uL (130-400) Mean Platelet Volume 9.6 fL (7.4-10.4) Neutrophils (%) (Auto) 74.2 % Lymphocytes (%) (Auto) 11.8 % Monocytes (%) (Auto) 11.3 % Eosinophils (%) (Auto) 2.3 % Basophils (%) (Auto) 0.2 % Neutrophils # (Auto) 6.03 K/uL (1.4-6.5) Lymphocytes # (Auto) 0.96 K/uL (1.2-3.4) Monocytes # (Auto) 0.92 K/uL (0.11-0.59) Eosinophils # (Auto) 0.19 K/uL (0-0.5) Basophils # (Auto) 0.02 K/uL (0-0.2) RDW Standard Deviation 43.7 fL (36.4-46.3) RDW Coefficient of Variation 13.8 % (11.5-14.5) Immature Granulocyte % (Auto) 0.2 % Immature Granulocyte # (Auto) 0.02 K/uL (0.00-0.02) Anion Gap 10.0 mmol/L (3-11) Est Creatinine Clear Calc Drug Dose 37.3 ml/min Estimated GFR () 54.1 Estimated GFR (Non- 46.7 BUN/Creatinine Ratio 22.3 (10-20) Calcium Level 9.5 mg/dl (8.5-10.1) Total Bilirubin 1.1 mg/dl (0.2-1) Aspartate Amino Transf (AST/SGOT) 39 U/L (15-37) Alanine Aminotransferase (ALT/SGPT) 40 U/L (12-78) Alkaline Phosphatase 99 U/L (45-117) Total Creatine Kinase 69 U/L (26-192) Creatine Kinase MB 1.2 ng/ml (0.5-3.6) Creatine Kinase MB Ratio 1.7 (0-3.0) Total Protein 7.6 gm/dl (6.4-8.2) Albumin 3.9 gm/dl (3.4-5.0) Globulin 3.7 gm/dl (2.5-4.0) Albumin/Globulin Ratio 1.1 (0.9-2) Lipase 137 U/L (73-393) Bedside D-Dimer > 450 ng/mlFEU (0-450) Influenza Type A Antigen Neg for Influ A (NEG) Influenza Type B Antigen Neg for Influ B (NEG) Prothrombin Time 10.7 SECONDS (9.0-12.0) Prothromb Time International Ratio 1.0 (0.9-1.1) Activated Partial Thromboplast Time 26.5 SECONDS (21.0-31.0) Partial Thromboplastin Ratio 1.0 Test 08/16/17 16:10 08/16/17 16:13 Urine Color YELLOW Urine Appearance CLEAR (CLEAR) Urine pH 5.0 (4.5-7.5) Urine Specific [place] > 1.045 (1.000-1.030) Urine Protein NEG (NEG) Urine Glucose (UA) NEG (NEG) Urine Ketones NEG (NEG) Urine Occult Blood NEG (NEG) Urine Nitrite POS (NEG) Urine Bilirubin NEG (NEG) Urine Urobilinogen NEG (NEG) Urine Leukocyte Esterase NEG (NEG) Urine WBC (Auto) 10-30 /hpf (0-5) Urine RBC (Auto) 0-4 /hpf (0-4) Urine Hyaline Casts (Auto) 1-5 /lpf (0-5) Urine Epithelial Cells (Auto) 20-30 /lpf (0-5) Urine Bacteria (Auto) 4+ (NEG) Bedside Troponin I < 0.030 ng/ml (0-0.045) Date/Time Source Procedure Growth Status 08/16/17 16:10 Urine , Clean Catch Urine Culture - Final Escherichia Coli Complete Medications Administered Medications (Trade) Dose Ordered Sig/Jim Route Start Time Stop Time Status Last Admin Dose Admin Morphine Sulfate (MoRPHine SULFATE INJ) 4 mg NOW STAT IV 08/16/17 14:39 08/16/17 14:40 DC 08/16/17 14:54 4 MG ECG Per My Interpretation Rate (beats per minute): 85 Rhythm: normal sinus Findings: other (LVH) Comparison ECG Date: ST depressions have improved Medical Decision Differential diagnosis includes chronic pain, pulmonary embolism, intra- abdominal infection, ACS, pneumonia, UTI, among others. The patient is a 72-year-old female who presents today complaining of generalized pain. Labs revealed no leukocytosis, anemia or concerning electrolyte abnormalities. Influenza testing was negative. Troponin 2 was negative. D-dimer was found to be elevated. CTA of the chest and CT of the abdomen and pelvis were performed. These did not show any obvious acute findings, however there were multiple chronic findings especially in the lungs. Patient was given information for pulmonology follow-up as an outpatient. Urinalysis was suggestive of infection, with 4+ bacteria and positive nitrite. Patient will be placed on Keflex. She was instructed that she will need very close follow-up with her primary care provider for further evaluation and treatment. The patient was independently evaluated by Dr. Parker, ED attending physician, who agreed with my assessment and treatment plan. Based on the patient's presentation and work up, I feel the patient is stable for outpatient treatment. The patient was educated to return to the emergency department for any worsening of their current condition or new/concerning symptoms. She will follow up with her PCP. Medication Reconcilliation Current Medication List: was personally reviewed by me Blood Pressure Screening Patient's blood pressure: Normal blood pressure Impression Primary Impression: UTI (urinary tract infection) Departure Information Dispostion Home / Self-Care Condition GOOD Prescriptions Cephalexin Monohydrate (Keflex) 500 Mg Cap 500 MG PO BID for 7 Days, #14 CAP Prov: Hiral Swenson .BREANNA 08/16/17 Referrals Jocy Stafford D.O. (PCP) Rashaad Alarcon MD Patient Instructions [facility] Additional Instructions Your urinalysis showed evidence of a urinary tract infection. You were prescribed Keflex to be taken twice daily as prescribed. This is an antibiotic. All antibiotics have the potential to cause diarrhea. Stop this medication and contact a medical provider if you were to develop any significant adverse side effects including: wheezing, shortness of breath, passing out, vomiting, or a diffuse rash. Always take antibiotics as directed and COMPLETE the ENTIRE course regardless of the improvement of your symptoms. You should see a banquet bartender regarding some chronic lung issues. You have been provided with information for a local banquet bartender. You may also contact your primary care provider to set this up. For pain control, you can use the following [id number] medicines (if >12 yo): - Regular strength (325mg/tab) Tylenol (acetaminophen) 2 tabs every 4-6 hours as needed. Do not exceed 12 tablets in a 24 hour period. Avoid taking more than 4 grams (4000 mg) of Tylenol per day. This includes any other sources of acetaminophen you may take on a regular basis. Make sure to drink plenty of fluids. Contact your primary care provider to schedule a follow-up appointment from today's visit. Ideally, you should be seen within 48 hours. Return to the emergency room immediately with worsening pain, vomiting, fevers, difficulty breathing, severe headache or other new/concerning symptoms.
[2017-08-16 17:17] VITALS: BP 127/79; PULSE 88; O2SAT 91
--- NOTE | 2017-08-18 13:04 | Pharmacy Progress Note ---
ED Pharmacist Culture FollowUp Date of Service: Aug 18, 2017. Patient was sent home with a prescription for Keflex 500mg PO BID x 7 days, which should cover the E coli growing from the patient's URINE culture.
== END 2017-08-16 17:39 | disposition home or self-care (01) ==
LOC: C.EDB 12:08 → C.EDC 17:39
DX: N39.0 Urinary tract infection, site not specified (principal); J43.9 Emphysema, unspecified; I25.10 Atherosclerotic heart disease of native coronary artery without angina pectoris; I51.7 Cardiomegaly; Z95.5 Presence of coronary angioplasty implant and graft; Z86.73 Personal history of transient ischemic attack (TIA), and cerebral infarction without residual deficits

== ENCOUNTER 2023-10-31 23:25 | Inpatient (IN) ==
--- NOTE | 2023-10-31 23:55 | Emergency Department Note ---
Impression & Plan UTI (urinary tract infection), Hypertension, Behavioral change ED Provider Note Provider: Buddy Inman MD DATE OF SERVICE: 10/31/2023 CHIEF COMPLAINT: Hypertension HISTORY OF PRESENT ILLNESS: Patient is a 78-year-old female history of CAD, hypothyroidism, hypertension, and UTI presenting here tonight reporting concerns with hypertension and some abnormal behavior. Evidently according to granddaughter making confused statements and yelling which is not typical for her. Patient was evaluated in the emergency department early on Wednesday after acting a little bit unwell and off according to family at [facility]. Did improve. Had imaging and blood work and was started on antibiotics for possible urinary tract infection. Patient denies any pains. No fall or trauma reported. Granddaughter reports the patient seems a little bit unsteady and did have her evening dose of cefepime. Patient states she did take her evening medications. Blood pressure at home was over 200 systolic thus came here for evaluation. Normally is well-controlled. Hard of hearing but moving all extremities it does not seem aphasic. Evidently earlier today was a little bit slow to answer at some point. PAST MEDICAL HISTORY: As noted above MEDICATIONS: Reviewed home medication list SOCIAL HISTORY: Former smoker PHYSICAL EXAM: GENERAL: alert and oriented in no acute distress on stretcher, hard of hearing Head: normocephalic and atraumatic EYES: No injection, discharge or icterus. EOMI. NECK: Trachea midline. Supple. ENT: Mucous membranes pink and moist. LUNGS: Airway patent. No retractions. Breath sounds clear with good air entry bilaterally. HEART: Regular rate and rhythm. No chest wall tenderness ABDOMEN: Soft and non-tender, without guarding or rebound. SKIN: Acyanotic, warm, dry, without rashes EXTREMITIES: Without swelling, tenderness or deformity NEUROLOGICAL: No focal deficits moving all extremities. No aphasia. No facial droop or slurred speech. Normal strength and tone in the extremities. Sensation to gross touch normal. EK bpm normal sinus rhythm. No PVC or PAC. QTc 470. No acute ST segment elevation with some anterior T wave inversions prominent V2 and V3. Compared to previous from earlier today somewhat less prominent T wave inversions. CONTINUOUS CARDIAC MONITORING: was ordered and showed a heart rate of 80s bpm in normal sinus rhythm 1 view chest x-ray per my interpretation: No evidence of pneumothorax with some irregular left lower lung space but appears more chronic lung scarring as opposed to pneumonia urinary edema Patient's laboratory studies and imaging reviewed. Differential includes Benign hypertension, hypertensive emergency, cardiovascular pathology, toxicologic, pheochromocytoma, electrolyte abnormality, renal disease, endorgan damage, CVA as well as other pathologies. IMPRESSION/MEDICAL DECISION MAKING: Patient seen earlier today and reviewed medical testing including CT/CTAs completed less than 12 hours ago. Urine culture from earlier today still pending. Reportedly took her medications and did receive antibiotics. Triage blood pressure elevated but first blood pressure in the room is significantly elevated. Patient without a lot of prominent neurological symptoms at this time although reportedly she may be a little bit more unsteady on her feet and again had some behavioral episode earlier at home briefly unprovoked. Again unclear last known well with waxing waning symptoms not 100% but was well before [facility] this morning. Do not believe she be a thrombolytic candidate given the mild symptoms at this point even if this is a CVA. Will monitor her blood pressure. Do not believe i we need to repeat CTs at this time as there is no large neurological deficits or headache reported but do question if maybe she suffered a small stroke. Again imaging less than 12 hours ago. In any event the severe hypertension would put her at risk for various vascular abnormalities. EKG troponin and basic blood work obtained. Work reassuring without significant cytosis or anemia. Compared to earlier renal function appears to be improving without significant electrolyte abnormality. Troponin essentially stable at 18. Chest x-ray my review appears to show some chronic lung scarring of the lower lobes but I do not believe this represents pneumonia or pulmonary edema. COVID flu RSV testing negative. Discussed with family and patient findings. Blood pressure has trended towards improvement still in the 150s to 170s systolic but more reasonable considering initials were greater than 200. In shared decision-making with patient and family, will bring her to the hospital for observation given her significant hypertension and with her being little bit off by description. Could be related to UTI given the behavioral issues and hypertension with a bit of unsteadiness with her age and risk factors do not feel this is unreasonable. Again received a dose of ceftriaxone earlier this past day and cefdinir in the evening and do not feel any additional antibiotics in the ER tonight. Hospitalist contacted. DIAGNOSIS: Hypertension, UTI, behavioral changes DISPOSITION: Hospitalist will evaluate Patient was agreeable with this plan. Past Med/Surg History Medical History (Updated 11/01/23 @ 01:22 by Buddy Inman M.D.) Hypothyroidism UTI (urinary tract infection) NSTEMI (non-ST elevated myocardial infarction) (08/09/14) TIA (transient ischemic attack) Pneumonitis Coronary artery disease Asthma Surgical History History of hysterectomy H/O: hysterectomy H/O bilateral mastectomy Stented coronary artery H/O percutaneous transluminal coronary angioplasty H/O cardiac catheterization Social History Smoking Status: Former smoker Preferred Language: Turkish Feels Safe at Home: Yes Allergies Allergies Allergy/AdvReac Type Severity Reaction Status Date / Time naproxen Allergy Intermediate PAIN IN Verified 06/12/22 00:10 CHEST prednisone Allergy Intermediate PAIN IN Verified 06/12/22 00:10 CHEST sulindac Allergy Intermediate PAIN IN Verified 06/12/22 00:10 CHEST Home Meds Home Medications Medication Instructions Recorded Confirmed atorvastatin 80 mg tablet 80 mg PO QAM 12/23/18 06/12/22 oxycodone-acetaminophen 5 mg-325 1 tab PO DAILY PRN Pain 12/23/18 06/12/22 mg tablet aspirin 81 mg tablet,delayed 81 mg PO DAILY 06/11/22 06/12/22 release duloxetine 60 mg capsule,delayed 60 mg PO QAM 06/11/22 06/12/22 release albuterol sulfate 90 mcg/actuation 2 puff inhalation Q4 PRN Wheezing 06/12/22 06/12/22 aerosol inhaler amlodipine 5 mg tablet 5 mg PO QAM 06/12/22 06/12/22 coenzyme Q10 200 mg capsule (Co 200 mg PO DAILY 06/12/22 06/12/22 Q-10) cyanocobalamin (vitamin B-12) 1,000 mcg PO DAILY 06/12/22 06/12/22 1,000 mcg tablet diphenhydramine HCl 25 mg tablet 25 mg PO Q6 PRN Itching 06/12/22 06/12/22 (Benadryl Allergy) doxycycline hyclate 100 mg capsule 100 mg PO AMHS 06/12/22 06/12/22 lisinopril 5 mg tablet 5 mg PO QAM 06/12/22 06/12/22 [id number] 250 mg-dha 90 1 cap PO DAILY 06/12/22 06/12/22 mg-epa 160 [id number] capsule (Ocuvite Adult 50 Plus) nitroglycerin 0.4 mg sublingual 0.4 mg sublingual .EVERY 5 MINUTES 06/12/22 06/12/22 tablet (Nitrostat) PRN Chest Pain Previous Rx's Medication Instructions Recorded albuterol sulfate 2.5 mg/0.5 mL 2.5 mg (0.5 mL) inhalation Q4H PRN 06/12/22 solution for nebulization bronchospasm #30 ea cefdinir 300 mg capsule 300 mg PO BID 5 days #10 caps 10/31/23 Results & Data (ED) Vital Signs Vital Signs - 24 hr 10/31/23 23:29 11/01/23 00:03 11/01/23 00:08 Temperature 36.6 C Temperature Source Oral Pulse Rate 83 Pulse Rate [Apical] 84 Respiratory Rate 18 Respiratory Effort / Characteristics Non-Labored Respiratory Depth Normal Respiratory Pattern Regular Blood Pressure 169/96 H Blood Pressure [Right Arm] 160/93 H Blood Pressure Mean 120 Blood Pressure Mean [Right Arm] 115 Pulse Oximetry 95 95 94 Oxygen Delivery Method Room Air Room Air Sepsis Recent Fever Within 48 Hours No Sepsis New/Unexplained Change in Mental Status No Sepsis Action Taken by Nursing No Action Required 11/01/23 00:10 11/01/23 01:00 Temperature Temperature Source Pulse Rate 84 Pulse Rate [Apical] 82 Respiratory Rate 18 Respiratory Effort / Characteristics Non-Labored Respiratory Depth Normal Respiratory Pattern Regular Blood Pressure Blood Pressure [Right Arm] 154/86 H Blood Pressure Mean Blood Pressure Mean [Right Arm] 108 Pulse Oximetry 95 Oxygen Delivery Method Room Air Sepsis Recent Fever Within 48 Hours Sepsis New/Unexplained Change in Mental Status Sepsis Action Taken by Nursing Laboratory Data 11/01/23 00:00 11/01/23 00:00 Lab Results 11/01/23 11/01/23 Range/Units 00:00 00:08 WBC 8.33 (4.8-10.8) K/ul RBC 4.80 (4.20-5.40) M/uL Hgb 14.3 (12.0-16.0) g/dl Hct 42.8 (37.0-47.0) % MCV 89.2 (80.0-100.0) fL MCH 29.8 (25.0-34.0) pg MCHC 33.4 (32.0-36.0) g/dL RDW Std Deviation 43.6 (36.4-46.3) fL RDW Coeff of Thang 13.4 (11.5-14.5) % Plt Count 173 (130-400) K/uL MPV 10.3 (9.4-12.4) fL Immature Gran % (Auto) 0.4 % Neut % (Auto) 73.4 % Lymph % (Auto) 13.7 % [place] % (Auto) 8.5 % Eos % (Auto) 3.5 % Baso % (Auto) 0.5 % Neut # (Auto) 6.12 (1.40-6.50) K/uL Lymph # (Auto) 1.14 L (1.20-3.40) K/uL [place] # (Auto) 0.71 H (0.11-0.59) K/uL Eos # (Auto) 0.29 (0.00-0.50) K/uL Baso # (Auto) 0.04 (0.00-0.20) K/uL Immature Gran # (Auto) 0.03 (0.01-0.20) K/uL Sodium 140 (136-145) mmol/L Potassium 3.7 (3.5-5.1) mmol/L Chloride 105 (98-107) mmol/L Carbon Dioxide 26 (21-32) mmol/L Anion Gap 9 (3-11) BUN 27 H (6-23) mg/dl Creatinine 1.35 H (0.6-1.2) mg/dl Est Cr Clr Drug Dosing 28.9 ml/min Est GFR ( Amer) 43.2 ml/min Est GFR (Non-Af Amer) 37.2 ml/min BUN/Creatinine Ratio 20.0 (10-20) Glucose 80 (70-99(Fasting)) mg/dl Calcium 9.8 (8.6-10.3) mg/dl Total Bilirubin 0.6 (0.2-1.0) mg/dl AST 18 (13-39) U/L ALT 8 (7-52) U/L Alkaline Phosphatase 85 (34-104) U/L Troponin I High Sens 18.6 H (0-14) pg/ml Total Protein 7.2 (6.0-8.3) gm/dl Albumin 4.2 (3.4-5.0) gm/dl Globulin 3.0 (2.5-4.0) gm/dl Albumin/Globulin Ratio 1.4 (0.9-2) SARS-CoV-2 (PCR) NEGATIVE (Negative) Influenza Type A (PCR) Negative (Neg) Influenza Type B (PCR) Negative (Neg) RSV (RT-PCR) Negative (Neg) Discharge Plan Visit Data Chief Complaint: Hypertension Stated Complaint: HYPERTENSION ED Provider: Buddy Inman Discharge Problem: UTI (urinary tract infection), Hypertension, Behavioral change Patient Disposition: Being Evaluated by Hospitalist Forms Stand Alone Forms: [facility] Prescriptions Prescriptions: No Action atorvastatin 80 mg tablet 80 mg PO QAM oxycodone-acetaminophen 5-325 mg tablet 1 tab PO DAILY PRN (Reason: Pain) aspirin [Aspirin Low-Strength] 81 mg Tablet,Delayed Release (Dr/Ec) 81 mg PO DAILY duloxetine 60 mg capsule,delayed release(DR/EC) 60 mg PO QAM amlodipine 5 mg tablet 5 mg PO QAM lisinopril 5 mg tablet 5 mg PO QAM Ocuvite Adult 50 Plus 250 mg (90 mg-160 mg) Capsule 1 cap PO DAILY cyanocobalamin (vitamin B-12) 1,000 mcg Tablet 1,000 mcg PO DAILY coenzyme Q10 [Co Q-10] 200 mg Capsule 200 mg PO DAILY doxycycline hyclate 100 mg capsule 100 mg PO AMHS Rx Instructions: start 06/10/22 take for 10 days until gone end date 06/20/22 diphenhydramine HCl [Benadryl Allergy] 25 mg Tablet 25 mg PO Q6 PRN (Reason: Itching) nitroglycerin [Nitrostat] 0.4 mg Tablet, Sublingual 0.4 mg sublingual .EVERY 5 MINUTES MDD 3 doses PRN (Reason: Chest Pain) Rx Instructions: call 911 if symptoms do not subside albuterol sulfate 90 mcg/actuation Hfa Aerosol Inhaler 2 puff INHALATION Q4 PRN (Reason: Wheezing) albuterol sulfate 2.5 mg/0.5 mL solution for nebulization 2.5 mg inhalation Q4H PRN (Reason: bronchospasm) Qty: 30 0RF cefdinir 300 mg capsule 300 mg PO BID 5 Days Qty: 10 0RF Referrals Referrals: Jocy Stafford DO [Primary Care Provider] - Discharge Problem: UTI (urinary tract infection) Qualifiers: Urinary tract infection type: site unspecified Hematuria presence: without hematuria Qualified Code(s): N39.0 - Urinary tract infection, site not specified Hypertension Qualifiers: Hypertension type: unspecified Qualified Code(s): I10 - Essential (primary) hypertension
[2023-11-01 00:20] LABS: Basophils # (auto) 0.04 K/uL (0.00-0.20); Basophils % (auto) 0.5 %; Eosinophils # (auto) 0.29 K/uL (0.00-0.50); Eosinophils % (auto) 3.5 %; Hematocrit (blood only) 42.8 % (37.0-47.0); Hemoglobin 14.3 g/dl (12.0-16.0); Immature Granulocytes # (auto) 0.03 K/uL (0.01-0.20); Immature Granulocytes % (auto) 0.4 %; Lymphocytes # (auto) 1.14 K/uL (1.20-3.40); Lymphocytes % (auto) 13.7 %; Mean Corpuscular Hemoglobin 29.8 pg (25.0-34.0); Mean Corpuscular Hgb Conc 33.4 g/dL (32.0-36.0); Mean Corpuscular Volume 89.2 fL (80.0-100.0); Mean Platelet Volume 10.3 fL (9.4-12.4); Monocytes # (auto) 0.71 K/uL (0.11-0.59); Monocytes % (auto) 8.5 %; Neutrophils # (auto) 6.12 K/uL (1.40-6.50); Neutrophils % (auto) 73.4 %; Platelet Count 173 K/uL (130-400); RDW Coefficient of Variation 13.4 % (11.5-14.5); RDW Standard Deviation 43.6 fL (36.4-46.3); White Blood Count 8.33 K/ul (4.8-10.8)
[2023-11-01 00:30] LABS: Albumin Globulin Ratio 1.4 (0.9-2); Albumin Level 4.2 gm/dl (3.4-5.0); Bilirubin,Total 0.6 mg/dl (0.2-1.0); Calcium 9.8 mg/dl (8.6-10.3); Creatinine Clr Calc Pharmacy 28.9 ml/min; Est GFR (African American) 43.2 ml/min; Est GFR (Non-African American) 37.2 ml/min; Potassium 3.7 mmol/L (3.5-5.1); Total Protein 7.2 gm/dl (6.0-8.3)
[2023-11-01 00:37] LABS: Troponin I High Sensitivity 18.6 pg/ml (0-14)
[2023-11-01 01:14] LABS: Influenza A virus by PCR Negative (Neg); Influenza B virus by PCR Negative (Neg); RSV by PCR Negative (Neg); SARS CoV2 RNA(COVID-19) Ceph NEGATIVE (Negative)
--- NOTE | 2023-11-01 05:00 | History & Physical Report ---
Date of Service November 01, 2023 Assessment & Plan (1) AMS (altered mental status): Plan: 78-year-old female with past medical history significant for hypertension, hypothyroidism, COPD, silent sinus syndrome, history of CVA, history of ulcer of aorta, peripheral vascular disease, hypertension, CAD, abdominal aortic aneurysm, B12 urgency, GERD, CKD stage III, fibromyalgia, osteoporosis, peripheral sensory neuropathy, history of medical marijuana use, history of intracranial hemorrhage who lives at home with her son was brought in because of confusion and UTI. yesterday Wednesday morning at [facility] patient seemed to have some dizziness and not seem to be herself and family was concerned about UTI as she gets confused with UTI and was brought to the ER. UA was positive. And also she had some dizziness and some imbalance so CT head and CTA head and neck were done which were unremarkable and she was discharged home on p.o. Omnicef. At home in the evening patient was agitated and her blood pressure was in 200s and the family brought her back to the hospital. Granddaughter is in the room. As per granddaughter when she gets UTIs she gets agitated at home. They are also worried about stroke. Patient is very hard of hearing but alert and oriented x 3. Granddaughter helped with H&P.. Patient denies headache. No blurred vision. No earache or runny nose. No sore throat , no cough. No fevers. No difficulty swallowing. No chest pain or shortness of breath. No nausea, no abdominal pain. Normal bowel and bladder movements. Resting comfortably and currently blood pressure is okay. Altered mental status Possible from UTI Was agitated at home Currently seems stable Yesterday morning in the ER CT head CTA head and neck unremarkable Family worried about stroke History of CVA Will follow MRI scan Close monitor UTI Possible cause of altered mental status Placed on Rocephin Gentle fluids Follow cultures Mild elevation troponin Troponin 20 then 17 then 18 Somewhat abnormal EKG Denies chest pain or shortness of breath Will follow serial enzymes and echo History of CAD s/p stent On aspirin, statin History of COPD Continue home inhalers and nebs as needed Hypertension On amlodipine and lisinopril Will monitor History of CVA Postcardiac cath right occipital infarction in 2014 On aspirin and statin Hyperlipidemia Statin Hypothyroidism On Synthyroid Peripheral vascular disease On aspirin and statin 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 She was admitted for confusion thought to be from UTI but CAT scan showed retroperitoneal intraparenchymal hemorrhage 1 x 1 cm Thought to from been on aspirin and Plavix and uncontrolled blood pressure Currently only on aspirin. Blood pressure goal 140/90 as per neurology Abdominal aortic aneurysm about 4 cm Distal thoracic aortic aneurysm 3.6 cm Suspected aortic ulceration medially at the level of the aortic hiatus on CT scan on July 2023 it was also present on CT scan in September 2018 Follows with vascular surgery DVT prophylaxis SCDs for now Disposition Med/telemetry Full code History of Present Illness Chief Complaint: Confusion and UTI Primary Care Provider: Jocy Stafford DO 78-year-old female with past medical history significant for hypertension, hypothyroidism, COPD, silent sinus syndrome, history of CVA, history of ulcer of aorta, peripheral vascular disease, hypertension, CAD, abdominal aortic aneurysm, B12 urgency, GERD, CKD stage III, fibromyalgia, osteoporosis, peripheral sensory neuropathy, history of medical marijuana use, history of intracranial hemorrhage who lives at home with her son was brought in because of confusion and UTI. yesterday Wednesday morning at [facility] patient seemed to have some dizziness and not seem to be herself and family was concerned about UTI as she gets confused with UTI and was brought to the ER. UA was positive. And also she had some dizziness and some imbalance so CT head and CTA head and neck were done which were unremarkable and she was discharged home on p.o. Omnicef. At home in the evening patient was agitated and her blood pressure was in 200s and the family brought her back to the hospital. Granddaughter is in the room. As per granddaughter when she gets UTIs she gets agitated at home. They are also worried about stroke. Patient is very hard of hearing but alert and oriented x 3. Granddaughter helped with H&P.. Patient denies headache. No blurred vision. No earache or runny nose. No sore throat , no cough. No fevers. No difficulty swallowing. No chest pain or shortness of breath. No nausea, no abdominal pain. Normal bowel and bladder movements. Resting comfortably and currently blood pressure is okay. Past medical history. As mentioned above. Past surgical history. Cardiac cath. Colonoscopy. Bilateral complete removal of breast in 1981. Coronary stenting. Total abdominal hysterectomy with removal of tubes. Social history. . Lives with her son. Quit smoking in 2013. Smoked 1 pack a day for 40 years. No drug use. No alcohol use. Family history. Father had hip fracture ,osteoporosis. Brother has arthritis, sister has arthritis. Brother has hypertension Allergies Allergy/AdvReac Type Severity Reaction Status Date / Time naproxen Allergy Intermediate PAIN IN Verified 11/01/23 01:52 CHEST prednisone Allergy Intermediate PAIN IN Verified 11/01/23 01:52 CHEST sulindac Allergy Intermediate PAIN IN Verified 11/01/23 01:52 CHEST Home Medications Medication Instructions Recorded Confirmed Type atorvastatin 80 mg tablet 80 mg PO QAM 12/23/18 11/01/23 History oxycodone-acetaminophen 5 mg-325 1 tab PO DAILY PRN Pain 12/23/18 11/01/23 History mg tablet aspirin 81 mg tablet,delayed 81 mg PO DAILY 06/11/22 11/01/23 History release duloxetine 60 mg capsule,delayed 60 mg PO QAM 06/11/22 11/01/23 History release albuterol sulfate 2.5 mg/0.5 mL 2.5 mg (0.5 mL) inhalation Q4H PRN 06/12/22 11/01/23 Rx solution for nebulization bronchospasm #30 ea albuterol sulfate 90 mcg/actuation 2 puff inhalation Q4 PRN Wheezing 06/12/22 11/01/23 History aerosol inhaler amlodipine 5 mg tablet 5 mg PO QAM 06/12/22 11/01/23 History coenzyme Q10 200 mg capsule (Co 200 mg PO DAILY 06/12/22 11/01/23 History Q-10) cyanocobalamin (vitamin B-12) 1,000 mcg PO DAILY 06/12/22 11/01/23 History 1,000 mcg tablet lisinopril 5 mg tablet 5 mg PO QAM 06/12/22 11/01/23 History nitroglycerin 0.4 mg sublingual 0.4 mg sublingual .EVERY 5 MINUTES 06/12/22 11/01/23 History tablet (Nitrostat) PRN Chest Pain cefdinir 300 mg capsule 300 mg PO BID 5 days #10 caps 10/31/23 11/01/23 Rx buspirone 5 mg tablet 5 mg PO BID 11/01/23 11/01/23 History levothyroxine 25 mcg tablet 25 mcg PO DAILY 11/01/23 11/01/23 History Past Med/Surg History Medical History (Updated 11/01/23 @ 05:06 by Robinson Claudio MD) Hypothyroidism UTI (urinary tract infection) NSTEMI (non-ST elevated myocardial infarction) (08/09/14) TIA (transient ischemic attack) Pneumonitis Coronary artery disease Asthma Surgical History History of hysterectomy H/O: hysterectomy H/O bilateral mastectomy Stented coronary artery H/O percutaneous transluminal coronary angioplasty H/O cardiac catheterization Social History Smoking Status: Never smoker Second Hand Exposure: No; Do You Dip or Chew Tobacco: No; Tobacco Cessation Education Requested by Patient: No Hx Alcohol Use: No Hx Substance Use: No Preferred Language: Macedonian Communication Ability: Effective Communication Ability Comment: hard of hearing Meat Wrapper Required: No Beliefs That Will Affect Care: None Current Living Situation: Alone Current Living Situation Comment: son lives with patient Other Information That Helps Us Care for You: No Feels Safe at Home: Yes Safety Concerns: Feels Safe At This Time Assistive Devices: Denture - Upper, Denture - Lower, Glasses and Hearing Aid - Bilateral Review of Systems Review of Systems: All systems reviewed & are unremarkable except as noted in HPI & below Physical Exam Physical Exam: General- Not in distress Head- atraumatic Eyes- PERRL. ENT- oropharynx clear Neck- supple, no JVD. Lungs- clear to auscultation no wheezing or crackles. Heart- regular rhythm; no murmur, no gallop. Abdomen- normal bowel sounds, soft, nontender, no distension. Extremities- no pretibial edema, no erythema seen. Neuro- alert, oriented x 3; PERRL, EOMI; no facial palsy; no dysarthria; motor 5/5 bilaterally; no pronator drift, coordination of movements normal. sensations intact. Skin- warm & dry Results & Data Results & Data Vital Signs (Past 12 Hours) Vital Signs Temp Pulse Pulse Resp BP BP Pulse Ox 11/01/23 03:00 92 H 18 131/60 97 11/01/23 01:00 82 18 154/86 H 95 11/01/23 00:10 84 11/01/23 00:08 84 18 160/93 H 94 11/01/23 00:03 95 10/31/23 23:29 36.6 C 83 169/96 H 95 O2 Del Method 11/01/23 03:00 11/01/23 01:00 Room Air 11/01/23 00:10 11/01/23 00:08 11/01/23 00:03 Room Air 10/31/23 23:29 Room Air Diagnostic Findings Laboratory Results WBC 8.33 K/ul (4.8-10.8) 11/01/23 00:00 RBC 4.80 M/uL (4.20-5.40) 11/01/23 00:00 Hgb 14.3 g/dl (12.0-16.0) 11/01/23 00:00 Hct 42.8 % (37.0-47.0) 11/01/23 00:00 MCV 89.2 fL (80.0-100.0) 11/01/23 00:00 MCH 29.8 pg (25.0-34.0) 11/01/23 00:00 MCHC 33.4 g/dL (32.0-36.0) 11/01/23 00:00 RDW Std Deviation 43.6 fL (36.4-46.3) 11/01/23 00:00 RDW Coeff of Thang 13.4 % (11.5-14.5) 11/01/23 00:00 Plt Count 173 K/uL (130-400) 11/01/23 00:00 MPV 10.3 fL (9.4-12.4) 11/01/23 00:00 Immature Gran % (Auto) 0.4 % 11/01/23 00:00 Neut % (Auto) 73.4 % 11/01/23 00:00 Lymph % (Auto) 13.7 % 11/01/23 00:00 [place] % (Auto) 8.5 % 11/01/23 00:00 Eos % (Auto) 3.5 % 11/01/23 00:00 Baso % (Auto) 0.5 % 11/01/23 00:00 Neut # (Auto) 6.12 K/uL (1.40-6.50) 11/01/23 00:00 Lymph # (Auto) 1.14 K/uL (1.20-3.40) L 11/01/23 00:00 [place] # (Auto) 0.71 K/uL (0.11-0.59) H 11/01/23 00:00 Eos # (Auto) 0.29 K/uL (0.00-0.50) 11/01/23 00:00 Baso # (Auto) 0.04 K/uL (0.00-0.20) 11/01/23 00:00 Immature Gran # (Auto) 0.03 K/uL (0.01-0.20) 11/01/23 00:00 Sodium 140 mmol/L (136-145) 11/01/23 00:00 Potassium 3.7 mmol/L (3.5-5.1) 11/01/23 00:00 Chloride 105 mmol/L (98-107) 11/01/23 00:00 Carbon Dioxide 26 mmol/L (21-32) 11/01/23 00:00 Anion Gap 9 (3-11) 11/01/23 00:00 BUN 27 mg/dl (6-23) H 11/01/23 00:00 Creatinine 1.35 mg/dl (0.6-1.2) H 11/01/23 00:00 Est Cr Clr Drug Dosing 28.9 ml/min 11/01/23 00:00 Est GFR ( Amer) 43.2 ml/min 11/01/23 00:00 Est GFR (Non-Af Amer) 37.2 ml/min 11/01/23 00:00 BUN/Creatinine Ratio 20.0 (10-20) 11/01/23 00:00 Glucose 80 mg/dl (70-99(Fasting)) 11/01/23 00:00 Calcium 9.8 mg/dl (8.6-10.3) 11/01/23 00:00 Total Bilirubin 0.6 mg/dl (0.2-1.0) 11/01/23 00:00 AST 18 U/L (13-39) 11/01/23 00:00 ALT 8 U/L (7-52) 11/01/23 00:00 Alkaline Phosphatase 85 U/L (34-104) 11/01/23 00:00 Troponin I High Sens 18.6 pg/ml (0-14) H 11/01/23 00:00 Total Protein 7.2 gm/dl (6.0-8.3) 11/01/23 00:00 Albumin 4.2 gm/dl (3.4-5.0) 11/01/23 00:00 Globulin 3.0 gm/dl (2.5-4.0) 11/01/23 00:00 Albumin/Globulin Ratio 1.4 (0.9-2) 11/01/23 00:00 SARS-CoV-2 (PCR) NEGATIVE (Negative) 11/01/23 00:08 Influenza Type A (PCR) Negative (Neg) 11/01/23 00:08 Influenza Type B (PCR) Negative (Neg) 11/01/23 00:08 RSV (RT-PCR) Negative (Neg) 11/01/23 00:08 ECG Additional Comments: ECG. Normal sinus rhythm with a rate of 83. Nonspecific ST wave abnormalities. Code Status & VTE Plan VTE Prophylaxis Plan VTE Prophylaxis will be ordered: Yes
[2023-11-01] MEDS ORDERED: ALBUTEROL HFA 8 GM INHALER INH PRN (05:37)
[2023-11-01] MEDS ORDERED: POLYETHYLENE (MIRALAX) 17 GM PACK PO PRN (05:37)
[2023-11-01] MEDS ORDERED: ACETAMINOPHEN 325 MG TAB PO PRN (05:37)
[2023-11-01] MEDS ORDERED: ALBUTEROL 0.5% NEB SOLN 2.5 MG/0.5 ML VIAL INH PRN (05:37)
[2023-11-01] MEDS ORDERED: NITROGLYCERIN SL 0.4 MG/TAB TAB SL PRN (05:37)
[2023-11-01] MEDS ORDERED: oxyCODONE/ACETAMINOPHEN 5mg/325mg TAB PO PRN (05:37)
[2023-11-01] MEDS: SODIUM CHLORIDE 0.9% 1,000 ML IV SCH (06:15)
--- NOTE | 2023-11-01 06:36 | XRay Report ---
XR chest 1V portable CLINICAL HISTORY: Hypertension COMPARISON STUDY: Chest radiograph June 23, 2019. Chest CT June 09, 2022. FINDINGS: There is emphysema. No pneumothorax or pleural effusion is present. Lower lung interstitial thickening is chronic. Cardiomediastinal silhouette is stable. No consolidation is identified to sug gest pneumonia. There is no radiographic evidence for pulmonary edema. IMPRESSION: No acute cardiopulmonary findings. No change in appearance of the chest. ACT 112: Negative or not required by law. Electronically signed by: Ramakrishna Lopez M.D. 11/01/2023 6:34 AM
[2023-11-01] MEDS: LEVOTHYROXINE SODIUM 25 MCG TABLET PO SCH (06:47)
[2023-11-01] MEDS: cefTRIAXone SODIUM 2,000 MG/50 ML BAG IV SCH (07:41)
[2023-11-01] MEDS: busPIRone 5 MG TAB PO SCH (07:41)
[2023-11-01] MEDS: CYANOCOBALAMIN (B-12) 500 MCG TABLET PO SCH (07:42)
[2023-11-01] MEDS: DULoxetine HCL 60 MG CAP PO SCH (07:42)
[2023-11-01] MEDS: amLODIPine BESYLATE 5 MG TAB PO SCH (07:43)
[2023-11-01] MEDS: ASPIRIN 81 MG ECTAB PO SCH (07:43)
[2023-11-01] MEDS: lisinopril 5 MG TAB PO SCH (07:43)
[2023-11-01] MEDS: ATORVASTATIN 40 MG TAB PO SCH (07:44)
[2023-11-01 07:52] LABS: Basophils # (auto) 0.06 K/uL (0.00-0.20); Basophils % (auto) 0.8 %; Eosinophils # (auto) 0.32 K/uL (0.00-0.50); Eosinophils % (auto) 4.4 %; Hematocrit (blood only) 42.2 % (37.0-47.0); Immature Granulocytes # (auto) 0.04 K/uL (0.01-0.20); Immature Granulocytes % (auto) 0.5 %; Lymphocytes % (auto) 12.3 %; Mean Corpuscular Hemoglobin 29.6 pg (25.0-34.0); Mean Corpuscular Hgb Conc 33.2 g/dL (32.0-36.0); Mean Corpuscular Volume 89.2 fL (80.0-100.0); Mean Platelet Volume 10.1 fL (9.4-12.4); Monocytes # (auto) 0.61 K/uL (0.11-0.59); Monocytes % (auto) 8.3 %; Neutrophils # (auto) 5.39 K/uL (1.40-6.50); Neutrophils % (auto) 73.7 %; Platelet Count 155 K/uL (130-400); RDW Coefficient of Variation 13.4 % (11.5-14.5); RDW Standard Deviation 43.7 fL (36.4-46.3); Red Blood Count 4.73 M/uL (4.20-5.40); White Blood Count 7.32 K/ul (4.8-10.8)
[2023-11-01 08:02] LABS: BUN Creatinine Ratio 19.5 (10-20); Calcium 9.4 mg/dl (8.6-10.3); Creatinine Clr Calc Pharmacy 30.6 ml/min; Est GFR (African American) 50.8 ml/min; Est GFR (Non-African American) 43.8 ml/min; Magnesium 1.8 mg/dl (1.7-2.4); Potassium 3.7 mmol/L (3.5-5.1)
[2023-11-01 08:09] LABS: Troponin I High Sensitivity 15.6 pg/ml (0-14)
--- NOTE | 2023-11-01 08:34 | Electrocardiogram Report ---
Test Reason : Blood Pressure : / mmHG Vent. Rate : 083 BPM Atrial Rate : 083 BPM P-R Int : 142 ms QRS Dur : 084 ms QT Int : 400 ms P-R-T Axes : 042 005 173 degrees QTc Int : 470 ms Normal sinus rhythm Minimal voltage criteria for LVH, may be normal variant Abnormal ECG When compared with ECG of 31-OCT-2023 11:52, (unconfirmed) Nonspecific T wave abnormality now evident in Inferior leads Confirmed by Gonzalez Warner ([id number]) on 11/01/2023 8:34:07 AM Referred By: REFERRED SELF Confirmed By:Jono Warner
[2023-11-01] MEDS ORDERED: Nursing to Pharmacy Communication SCH (08:45)
[2023-11-01] MEDS ORDERED: lisinopril 10 MG TAB PO SCH (09:00)
[2023-11-01] MEDS ORDERED: NON-FORMULARY MEDICATION (Coenzyme Q10 [Co Q-10] 200 mg Capsule) PO SCH (09:00)
[2023-11-01] MEDS: LABETALOL HCL IV 5 MG/ML 20ML IV PRN (09:06)
[2023-11-01] MEDS: lisinopril 5 MG TAB PO STA (09:08)
[2023-11-01] MEDS: LORazepam 0.25 MG in SYRINGE 0.125 ML IV STA (10:25)
--- NOTE | 2023-11-01 11:46 | Magnetic Resonance Report ---
MRI OF THE BRAIN WITHOUT IV CONTRAST CLINICAL HISTORY: Hypertension. Stroke like symptoms. COMPARISON STUDY: CT of the brain dated 10/31/2023. MRI of the brain dated 09/21/2014. TECHNIQUE: MRI of the brain was performed utilizing various T1 and T2-weighted sequences in the axial , sagittal, and coronal planes. IV contrast was not administered for this examination. FINDINGS: Brain parenchyma: There is age-related involutional change noting advanced patchy subcortical and per iventricular microangiopathic disease. There are numerous prominent perivascular spaces seen througho ut the white matter. There is no hemorrhage or mass effect. There is no restricted diffusion to sugge st acute ischemia. Small chronic lacunar infarcts are suggested in both thalami as well as the right cerebellar hemisphere. Simmons-white matter differentiation is preserved. No extra-axial fluid collectio n is seen. The cerebellar tonsils are normal in configuration. Ventricles, sulci, and cisterns: Prominent secondary to involutional change. Pituitary and sella: Unremarkable. Intracranial vasculature: Normal flow voids are maintained at the skull base. Orbits: The bony orbits are grossly intact. Orbital contents are normal in appearance noting bilatera l ocular lens implant. Sinuses and mastoids: There is near-complete opacification of the right maxillary antrum. Trace mucos al thickening is noted in the ethmoid sinuses. There are small right and trace left mastoid effusion. Calvarium: Unremarkable. Cervical cord: Partially visualized cervical spinal cord is normal in morphology and signal intensity . IMPRESSION: 1. No acute intracranial abnormality. 2. Chronic/senescent changes as above. ACT 112: Negative or not required by law. Electronically signed by: Beto Hoang M.D. 11/01/2023 11:45 AM
--- NOTE | 2023-11-01 14:05 | Hospitalist Progress Note ---
Date of Service November 01, 2023 Assessment & Plan (1) AMS (altered mental status): Plan: 78-year-old female with past medical history significant for hypertension, hypothyroidism, COPD, silent sinus syndrome, history of CVA, history of ulcer of aorta, peripheral vascular disease, hypertension, CAD, abdominal aortic aneurysm, B12 urgency, GERD, CKD stage III, fibromyalgia, osteoporosis, peripheral sensory neuropathy, history of medical marijuana use, history of intracranial hemorrhage who lives at home with her son was brought in because of confusion and UTI. yesterday Wednesday morning at [facility] patient seemed to have some dizziness and not seem to be herself and family was concerned about UTI as she gets confused with UTI and was brought to the ER. UA was positive. And also she had some dizziness and some imbalance so CT head and CTA head and neck were done which were unremarkable and she was discharged home on p.o. Omnicef. At home in the evening patient was agitated and her blood pressure was in 200s and the family brought her back to the hospital. Granddaughter is in the room. As per granddaughter when she gets UTIs she gets agitated at home. They are also worried about stroke. Patient is very hard of hearing but alert and oriented x 3. Granddaughter helped with H&P.. Patient denies headache. No blurred vision. No earache or runny nose. No sore throat , no cough. No fevers. No difficulty swallowing. No chest pain or shortness of breath. No nausea, no abdominal pain. Normal bowel and bladder movements. Resting comfortably and currently blood pressure is okay. Altered mental status Multifactorial-possible UTI, hypertensive urgency Was agitated at home Clinically much better this morning during my examination Denies any more confusion Dizziness is gone Has been on Rocephin for possible UTI and getting small amount of intravenous fluid Hypertensive urgency History of CVA in the family members are worried about having another stroke/TIA CT of the head, CTA of the head and neck are unremarkable MRI of the brain is unremarkable No more neurological symptoms and the confusion is resolved Blood pressure has been under control as well Mild elevation troponin Troponin 20 then 17 then 18 Somewhat abnormal EKG Denies chest pain or shortness of breath Will follow serial enzymes and echo Doubt any ACS-awaiting echo History of CAD s/p stent On aspirin, statin History of COPD Continue home inhalers and nebs as needed History of CVA Postcardiac cath right occipital infarction in 2014 On aspirin and statin Hyperlipidemia Statin Hypothyroidism On Synthyroid Peripheral vascular disease On aspirin and statin 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 She was admitted for confusion thought to be from UTI but CAT scan showed retroperitoneal intraparenchymal hemorrhage 1 x 1 cm Thought to from been on aspirin and Plavix and uncontrolled blood pressure Currently only on aspirin. Blood pressure goal 140/90 as per neurology Abdominal aortic aneurysm about 4 cm Distal thoracic aortic aneurysm 3.6 cm Suspected aortic ulceration medially at the level of the aortic hiatus on CT scan on July 2023 it was also present on CT scan in September 2018 Follows with vascular surgery DVT prophylaxis SCDs for now Disposition Med/telemetry Full code Admission and Anticipated Discharge Date Admission Date: November 01, 2023 Subjective 11/01/2023 The patient was seen and examined in telemetry unit in the presence of the family members She has had dizziness with possible minimal confusion before admission Clinically resolved- Denies any other symptoms and remains stable Review of Systems Review of Systems: All systems reviewed and are unremarkable except as noted below Physical Exam Physical Exam: Lying in bed without any acute distress Constitutional: well developed and well nourished; not ill appearing Eyes: PERRL, conjunctivae normal, anicteric sclerae ENMT: external ear and nose normal, oropharynx normal Neck: trachea midline, no thyromegaly Respiratory: no respiratory distress Auscultation: lungs clear to auscultation bilaterally Cardiovascular: Rate/Rhythm: regular rate and regular rhythm; not tachycardic Heart Sounds: normal S1 and normal S2; no murmur Extremities: no edema Gastrointestinal (Abdomen): Inspection/Auscultation: normal bowel sounds; abdomen not distended Percussion/Palpation: abdomen soft; abdomen nontender Musculoskeletal: No acute arthritis involving the joint. Neurologic: normal touch/pain/proprioception and moves all extremities; no focal motor deficits Psychiatric: A+Ox3, euthymic affect Lymphatic: no cervical or axillary lymphadenopathy Results & Data Results & Data Vital Signs (Past 12 Hours) Vital Signs Temp Pulse Pulse Resp BP BP BP 11/01/23 11:53 36.8 C 81 16 134/64 11/01/23 09:42 80 145/68 H 11/01/23 09:41 145/68 H 11/01/23 09:06 96 H 191/76 H 11/01/23 07:32 36.6 C 83 19 171/100 H 191/91 H 11/01/23 07:28 90 11/01/23 06:07 145/89 H 11/01/23 05:38 11/01/23 05:26 83 11/01/23 05:25 36.6 C 87 18 171/95 H 11/01/23 05:00 72 18 155/77 H 11/01/23 04:15 74 11/01/23 03:00 92 H 18 131/60 Pulse Ox O2 Del Method O2 Flow Rate 11/01/23 11:53 96 Room Air 11/01/23 09:42 11/01/23 09:41 11/01/23 09:06 11/01/23 07:32 93 Room Air 11/01/23 07:28 11/01/23 06:07 11/01/23 05:38 Room Air 11/01/23 05:26 11/01/23 05:25 95 Room Air 11/01/23 05:00 97 Nasal Cannula 2 11/01/23 04:15 11/01/23 03:00 97 Laboratory Results Short CBC 11/01/23 11/01/23 Range/Units 00:00 07:07 WBC 8.33 7.32 (4.8-10.8) K/ul Hgb 14.3 14.0 (12.0-16.0) g/dl Hct 42.8 42.2 (37.0-47.0) % Plt Count 173 155 (130-400) K/uL BMP 11/01/23 11/01/23 00:00 07:07 Sodium 140 142 Potassium 3.7 3.7 Chloride 105 108 H Carbon Dioxide 26 26 BUN 27 H 23 Creatinine 1.35 H 1.18 Glucose 80 94 Calcium 9.8 9.4 Liver Function 11/01/23 Range/Units 00:00 Total Bilirubin 0.6 (0.2-1.0) mg/dl AST 18 (13-39) U/L ALT 8 (7-52) U/L Alkaline Phosphatase 85 (34-104) U/L Albumin 4.2 (3.4-5.0) gm/dl Medications Administered Current Inpatient Medications Acetaminophen (Acetaminophen 325 Mg Tab) 650 mg PO Q4H PRN PRN Reason: Pain or Fever Stop: 12/01/23 05:36 Albuterol (Albuterol Hfa 8 Gm Inhaler) 2 puffs INH Q4 PRN PRN Reason: Wheezing Stop: 12/01/23 05:36 Albuterol (Albuterol 0.5% Neb Soln 2.5 Mg/0.5 Ml Vial) 2.5 mg INH Q4H PRN; Protocol PRN Reason: bronchospasm Stop: 12/01/23 05:36 Amlodipine Besylate (Amlodipine Besylate 5 Mg Tab) 5 mg PO QAM [facility] Stop: 12/01/23 08:59 Last Admin: 11/01/23 07:43 Dose: 5 mg Aspirin (Aspirin 81 Mg Ectab) 81 mg PO DAILY [facility] Stop: 12/01/23 08:59 Last Admin: 11/01/23 07:43 Dose: 81 mg Atorvastatin Calcium (Atorvastatin 40 Mg Tab) 80 mg PO QAM [facility] Stop: 12/01/23 08:59 Last Admin: 11/01/23 07:44 Dose: 80 mg Buspirone HCl (Buspirone 5 Mg Tab) 5 mg PO BID [facility] Stop: 12/01/23 08:59 Last Admin: 11/01/23 07:41 Dose: 5 mg Cyanocobalamin (Cyanocobalamin (B-12) 500 Mcg Tablet) 1,000 mcg PO DAILY [facility] Stop: 12/01/23 08:59 Last Admin: 11/01/23 07:42 Dose: 1,000 mcg Duloxetine HCl (Duloxetine Hcl 60 Mg Cap) 60 mg PO QAM [facility] Stop: 12/01/23 08:59 Last Admin: 11/01/23 07:42 Dose: 60 mg Sodium Chloride (Nss) 1,000 mls @ 80 mls/hr IV .[id number] [facility] Stop: 12/01/23 05:36 Last Admin: 11/01/23 06:15 Dose: 80 mls/hr Ceftriaxone Sodium (Rocephin) 2,000 mg in 50 mls @ 100 mls/hr IV Q24H [facility] Stop: 11/11/23 07:59 Last Infusion: 11/01/23 08:33 Dose: Infused Labetalol HCl (Labetalol Hcl Iv 5 Mg/Ml 20ml) 10 mg IV Q4H PRN PRN Reason: Hypertension Stop: 12/01/23 05:36 Last Admin: 11/01/23 09:06 Dose: 10 mg Levothyroxine Sodium (Levothyroxine Sodium 25 Mcg Tablet) 25 mcg PO DAILYBB [facility] Stop: 12/01/23 06:29 Last Admin: 11/01/23 06:47 Dose: 25 mcg Lisinopril (Lisinopril 10 Mg Tab) 10 mg PO QAM [facility] Stop: 12/02/23 08:59 Nitroglycerin (Nitroglycerin Sl 0.4 Mg/Tab Tab) 0.4 mg SL Q5M PRN PRN Reason: Chest Pain Stop: 12/01/23 05:36 Oxycodone/Acetaminophen (Oxycodone/Acetaminophen 5mg/325mg Tab) 1 tab PO DAILY PRN PRN Reason: Pain Stop: 11/15/23 05:36 Polyethylene Glycol (Polyethylene (Miralax) 17 Gm Pack) 17 gm PO DAILY PRN PRN Reason: Constipation Stop: 12/01/23 05:36
[2023-11-01] MEDS: LOPERAMIDE HCL 2 MG CAP PO STA (22:34)
[2023-11-02 07:11] LABS: Basophils # (auto) 0.05 K/uL (0.00-0.20); Basophils % (auto) 0.8 %; Eosinophils # (auto) 0.34 K/uL (0.00-0.50); Eosinophils % (auto) 5.5 %; Hematocrit (blood only) 36.9 % (37.0-47.0); Hemoglobin 12.2 g/dl (12.0-16.0); Immature Granulocytes # (auto) 0.01 K/uL (0.01-0.20); Immature Granulocytes % (auto) 0.2 %; Lymphocytes # (auto) 0.97 K/uL (1.20-3.40); Lymphocytes % (auto) 15.6 %; Mean Corpuscular Hemoglobin 29.6 pg (25.0-34.0); Mean Corpuscular Hgb Conc 33.1 g/dL (32.0-36.0); Mean Corpuscular Volume 89.6 fL (80.0-100.0); Mean Platelet Volume 10.1 fL (9.4-12.4); Monocytes # (auto) 0.52 K/uL (0.11-0.59); Monocytes % (auto) 8.4 %; Neutrophils # (auto) 4.33 K/uL (1.40-6.50); Neutrophils % (auto) 69.5 %; Platelet Count 127 K/uL (130-400); RDW Coefficient of Variation 13.4 % (11.5-14.5); RDW Standard Deviation 43.8 fL (36.4-46.3); Red Blood Count 4.12 M/uL (4.20-5.40); White Blood Count 6.22 K/ul (4.8-10.8)
[2023-11-02] MEDS: lisinopril 10 MG TAB PO SCH (08:15)
[2023-11-02 08:47] LABS: BUN Creatinine Ratio 18.8 (10-20); Calcium 8.2 mg/dl (8.6-10.3); Creatinine Clr Calc Pharmacy 32.2 ml/min; Est GFR (African American) 54.1 ml/min; Est GFR (Non-African American) 46.7 ml/min; Magnesium 1.7 mg/dl (1.7-2.4); Potassium 3.7 mmol/L (3.5-5.1)
--- NOTE | 2023-11-02 12:16 | Hospitalist Progress Note ---
Date of Service November 02, 2023 Assessment & Plan (1) AMS (altered mental status): Plan: 78-year-old female with past medical history significant for hypertension, hypothyroidism, COPD, silent sinus syndrome, history of CVA, history of ulcer of aorta, peripheral vascular disease, hypertension, CAD, abdominal aortic aneurysm, B12 urgency, GERD, CKD stage III, fibromyalgia, osteoporosis, peripheral sensory neuropathy, history of medical marijuana use, history of intracranial hemorrhage who lives at home with her son was brought in because of confusion and UTI. yesterday Wednesday morning at [facility] patient seemed to have some dizziness and not seem to be herself and family was concerned about UTI as she gets confused with UTI and was brought to the ER. UA was positive. And also she had some dizziness and some imbalance so CT head and CTA head and neck were done which were unremarkable and she was discharged home on p.o. Omnicef. At home in the evening patient was agitated and her blood pressure was in 200s and the family brought her back to the hospital. Granddaughter is in the room. As per granddaughter when she gets UTIs she gets agitated at home. They are also worried about stroke. Patient is very hard of hearing but alert and oriented x 3. Granddaughter helped with H&P.. Patient denies headache. No blurred vision. No earache or runny nose. No sore throat , no cough. No fevers. No difficulty swallowing. No chest pain or shortness of breath. No nausea, no abdominal pain. Normal bowel and bladder movements. Resting comfortably and currently blood pressure is okay. Altered mental status-acute metabolic encephalopathy Multifactorial-possible UTI, hypertensive urgency Was agitated at home Clinically much better this morning during my examination Denies any more confusion Dizziness is gone Has been on Rocephin for possible UTI and getting small amount of intravenous fluid No more issues with mental status-resolved acute confusion and metabolic encephalopathy Urine culture is growing pinpoint growth without any symptoms doubt any infection Will discontinue antibiotic on discharge Has been having problem with swallowing as per the daughter likely globus but will get speech evaluation before discharge Hypertensive urgency History of CVA in the family members are worried about having another stroke/TIA CT of the head, CTA of the head and neck are unremarkable MRI of the brain is unremarkable No more neurological symptoms and the confusion is resolved Blood pressure has been under control as well She will be discharged home this afternoon following PT and OT evaluation Mild elevation troponin Troponin 20 then 17 then 18 Somewhat abnormal EKG Denies chest pain or shortness of breath Will follow serial enzymes and echo Doubt any ACS-awaiting echo History of CAD s/p stent On aspirin, statin History of COPD Continue home inhalers and nebs as needed History of CVA Postcardiac cath right occipital infarction in 2014 On aspirin and statin Hyperlipidemia Statin Hypothyroidism On Synthyroid Peripheral vascular disease On aspirin and statin 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 She was admitted for confusion thought to be from UTI but CAT scan showed retroperitoneal intraparenchymal hemorrhage 1 x 1 cm Thought to from been on aspirin and Plavix and uncontrolled blood pressure Currently only on aspirin. Blood pressure goal 140/90 as per neurology Abdominal aortic aneurysm about 4 cm Distal thoracic aortic aneurysm 3.6 cm Suspected aortic ulceration medially at the level of the aortic hiatus on CT scan on July 2023 it was also present on CT scan in September 2018 Follows with vascular surgery DVT prophylaxis SCDs for now Disposition Med/telemetry Full code Admission and Anticipated Discharge Date Admission Date: November 01, 2023 Subjective 11/01/2023 The patient was seen and examined in telemetry unit in the presence of the family members She has had dizziness with possible minimal confusion before admission Clinically resolved- Denies any other symptoms and remains stable 11/02/2023 The patient was seen and examined in telemetry unit She has been out of bed on the chair and denies any significant symptoms No neurological symptoms and no problems with her urine and her bowel habit She will get the PT and OT evaluation prior to discharge home this afternoon Minimal issues with swallowing will get a speech evaluation prior to discharge Review of Systems Review of Systems: All systems reviewed and are unremarkable except as noted below Physical Exam Physical Exam: Lying in bed without any acute distress Constitutional: well developed and well nourished; not ill appearing Eyes: PERRL, conjunctivae normal, anicteric sclerae ENMT: external ear and nose normal, oropharynx normal Neck: trachea midline, no thyromegaly Respiratory: no respiratory distress Auscultation: lungs clear to auscultation bilaterally Cardiovascular: Rate/Rhythm: regular rate and regular rhythm; not tachycardic Heart Sounds: normal S1 and normal S2; no murmur Extremities: no edema Gastrointestinal (Abdomen): Inspection/Auscultation: normal bowel sounds; abdomen not distended Percussion/Palpation: abdomen soft; abdomen nontender Neurologic: normal touch/pain/proprioception and moves all extremities; no focal motor deficits Psychiatric: A+Ox3, euthymic affect Lymphatic: no cervical or axillary lymphadenopathy Results & Data Results & Data Vital Signs (Past 12 Hours) Vital Signs Temp Pulse Pulse Resp BP Pulse Ox O2 Del Method 11/02/23 12:04 11/02/23 10:55 36.4 C L 71 18 126/76 93 Room Air 11/02/23 10:41 95 Room Air 11/02/23 10:01 Nasal Cannula 11/02/23 07:25 36.5 C 82 18 159/84 H 92 Nasal Cannula 11/02/23 07:00 77 11/02/23 03:00 36.7 C 75 18 117/67 93 Nasal Cannula O2 Del Method O2 Flow Rate 11/02/23 12:04 Room Air 11/02/23 10:55 11/02/23 10:41 11/02/23 10:01 11/02/23 07:25 2 11/02/23 07:00 11/02/23 03:00 2 Laboratory Results Short CBC 11/02/23 Range/Units 06:46 WBC 6.22 (4.8-10.8) K/ul Hgb 12.2 (12.0-16.0) g/dl Hct 36.9 L (37.0-47.0) % Plt Count 127 L (130-400) K/uL BMP 11/02/23 06:46 Sodium 143 Potassium 3.7 Chloride 113 H Carbon Dioxide 24 BUN 21 Creatinine 1.12 Glucose 85 Calcium 8.2 L Medications Administered Current Inpatient Medications Acetaminophen (Acetaminophen 325 Mg Tab) 650 mg PO Q4H PRN PRN Reason: Pain or Fever Stop: 12/01/23 05:36 Albuterol (Albuterol Hfa 8 Gm Inhaler) 2 puffs INH Q4 PRN PRN Reason: Wheezing Stop: 12/01/23 05:36 Albuterol (Albuterol 0.5% Neb Soln 2.5 Mg/0.5 Ml Vial) 2.5 mg INH Q4H PRN; Protocol PRN Reason: bronchospasm Stop: 12/01/23 05:36 Amlodipine Besylate (Amlodipine Besylate 5 Mg Tab) 5 mg PO QAM [facility] Stop: 12/01/23 08:59 Last Admin: 11/02/23 08:14 Dose: 5 mg Aspirin (Aspirin 81 Mg Ectab) 81 mg PO DAILY [facility] Stop: 12/01/23 08:59 Last Admin: 11/02/23 08:14 Dose: 81 mg Atorvastatin Calcium (Atorvastatin 40 Mg Tab) 80 mg PO QAM [facility] Stop: 12/01/23 08:59 Last Admin: 11/02/23 08:15 Dose: 80 mg Buspirone HCl (Buspirone 5 Mg Tab) 5 mg PO BID [facility] Stop: 12/01/23 08:59 Last Admin: 11/02/23 08:15 Dose: 5 mg Cyanocobalamin (Cyanocobalamin (B-12) 500 Mcg Tablet) 1,000 mcg PO DAILY [facility] Stop: 12/01/23 08:59 Last Admin: 11/02/23 08:15 Dose: 1,000 mcg Duloxetine HCl (D[facility] Hcl 60 Mg Cap) [facility] Stop: 12/01/23 08:59 Last Admin: 11/02/23 08:15 Dose: 60 mg Ceftriaxone Sodium (Rocephin) 2,000 mg in 50 mls @ 100 mls/hr IV Q24H [facility] Stop: 11/11/23 07:59 Last Infusion: 11/02/23 08:44 Dose: Infused Labetalol HCl (Labetalol Hcl Iv 5 Mg/Ml 20ml) 10 mg IV Q4H PRN PRN Reason: Hypertension Stop: 12/01/23 05:36 Last Admin: 11/01/23 09:06 Dose: 10 mg Levothyroxine Sodium (Levothyroxine Sodium 25 Mcg Tablet) 25 mcg PO DAILYBB [facility] Stop: 12/01/23 06:29 Last Admin: 11/02/23 06:04 Dose: 25 mcg Lisinopril (Lisinopril 10 Mg Tab) 10 mg PO QAM [facility] Stop: 12/02/23 08:59 Last Admin: 11/02/23 08:15 Dose: 10 mg Nitroglycerin (Nitroglycerin Sl 0.4 Mg/Tab Tab) 0.4 mg SL Q5M PRN PRN Reason: Chest Pain Stop: 12/01/23 05:36 Oxycodone/Acetaminophen (Oxycodone/Acetaminophen 5mg/325mg Tab) 1 tab PO DAILY PRN PRN Reason: Pain Stop: 11/15/23 05:36 Polyethylene Glycol (Polyethylene (Miralax) 17 Gm Pack) 17 gm PO DAILY PRN PRN Reason: Constipation Stop: 12/01/23 05:36
--- NOTE | 2023-11-03 13:00 | Discharge Summary ---
Date of Service November 03, 2023 Admission HPI Per Admitting Provider 78-year-old female with past medical history significant for hypertension, hypothyroidism, COPD, silent sinus syndrome, history of CVA, history of ulcer of aorta, peripheral vascular disease, hypertension, CAD, abdominal aortic aneurysm, B12 urgency, GERD, CKD stage III, fibromyalgia, osteoporosis, peripheral sensory neuropathy, history of medical marijuana use, history of intracranial hemorrhage who lives at home with her son was brought in because of confusion and UTI. yesterday Wednesday morning at [facility] patient seemed to have some dizziness and not seem to be herself and family was concerned about UTI as she gets confused with UTI and was brought to the ER. UA was positive. And also she had some dizziness and some imbalance so CT head and CTA head and neck were done which were unremarkable and she was discharged home on p.o. Omnicef. At home in the evening patient was agitated and her blood pressure was in 200s and the family brought her back to the hospital. Granddaughter is in the room. As per granddaughter when she gets UTIs she gets agitated at home. They are also worried about stroke. Patient is very hard of hearing but alert and oriented x 3. Granddaughter helped with H&P.. Patient denies headache. No blurred vision. No earache or runny nose. No sore throat , no cough. No fevers. No difficulty swallowing. No chest pain or shortness of breath. No nausea, no abdominal pain. Normal bowel and bladder movements. Resting comfortably and currently blood pressure is okay. Past medical history. As mentioned above. Past surgical history. Cardiac cath. Colonoscopy. Bilateral complete removal of breast in 1981. Coronary stenting. Total abdominal hysterectomy with removal of tubes. Social history. . Lives with her son. Quit smoking in 2013. Smoked 1 pack a day for 40 years. No drug use. No alcohol use. Family history. Father had hip fracture ,osteoporosis. Brother has arthritis, sister has arthritis. Brother has hypertension Admission Exam Per Admitting Provider General- Not in distress Head- atraumatic Eyes- PERRL. ENT- oropharynx clear Neck- supple, no JVD. Lungs- clear to auscultation no wheezing or crackles. Heart- regular rhythm; no murmur, no gallop. Abdomen- normal bowel sounds, soft, nontender, no distension. Extremities- no pretibial edema, no erythema seen. Neuro- alert, oriented x 3; PERRL, EOMI; no facial palsy; no dysarthria; motor 5/5 bilaterally; no pronator drift, coordination of movements normal. sensations intact. Skin- warm & dry Principal Diagnosis AMS Possible UTI COPD with hypoxia Nocturnal hypoxemia Discharge Exam GENERAL: Alert and oriented x3. NAD, on 2L NC O2. HEENT: No pallor, no icterus. Pupils equal, round and reactive to light. Oral mucosa moist. NECK: No JVD, no neck masses. HEART: S1 and S2 heard. Regular rate and rhythm. No murmur, no gallop. RESPIRATORY SYSTEM: Normal AP diameter. No accessory muscle use. No wheezing, no crackles. ABDOMEN: Soft, bowel sounds present, nontender, no distention. CENTRAL NERVOUS SYSTEM: No facial droop. Speech is clear. Obeys simple commands. Moves extremities. EXTREMITIES: No edema, no erythema seen. Discharge Data Allergies Allergy/AdvReac Type Severity Reaction Status Date / Time naproxen Allergy Intermediate PAIN IN Verified 11/01/23 01:52 CHEST prednisone Allergy Intermediate PAIN IN Verified 11/01/23 01:52 CHEST sulindac Allergy Intermediate PAIN IN Verified 11/01/23 01:52 CHEST Consultations 11/01/23 01:16 ED Decision to Admit Stat Ordered Studies 11/01/23 08:00 MRI Brain [MR brain wo con] Routine Hospital Course (1) AMS (altered mental status): Per prior attending with addendum: 78-year-old female with past medical history significant for hypertension, hypothyroidism, COPD, silent sinus syndrome, history of CVA, history of ulcer of aorta, peripheral vascular disease, hypertension, CAD, abdominal aortic aneurysm, B12 urgency, GERD, CKD stage III, fibromyalgia, osteoporosis, peripheral sensory neuropathy, history of medical marijuana use, history of intracranial hemorrhage who lives at home with her son was brought in because of confusion and UTI. yesterday Wednesday morning at [facility] patient seemed to have some dizziness and not seem to be herself and family was concerned about UTI as she gets confused with UTI and was brought to the ER. UA was positive. And also she had some dizziness and some imbalance so CT head and CTA head and neck were done which were unremarkable and she was discharged home on p.o. Omnicef. At home in the evening patient was agitated and her blood pressure was in 200s and the family brought her back to the hospital. Granddaughter is in the room. As per granddaughter when she gets UTIs she gets agitated at home. They are also worried about stroke. Patient is very hard of hearing but alert and oriented x 3. Granddaughter helped with H&P.. Patient denies headache. No blurred vision. No earache or runny nose. No sore throat , no cough. No fevers. No difficulty swallowing. No chest pain or shortness of breath. No nausea, no abdominal pain. Normal bowel and bladder movements. Resting comfortably and currently blood pressure is okay. Altered mental status-acute metabolic encephalopathy Multifactorial-possible UTI, hypertensive urgency Was agitated at home Clinically much better this morning during my examination Denies any more confusion Dizziness is gone Has been on Rocephin for possible UTI and getting small amount of intravenous fluid No more issues with mental status-resolved acute confusion and metabolic encephalopathy Urine culture is growing pinpoint growth without any symptoms doubt any infection Will discontinue antibiotic on discharge Has been having problem with swallowing as per the daughter likely globus but will get speech evaluation before discharge Hypertensive urgency History of CVA in the family members are worried about having another stroke/TIA CT of the head, CTA of the head and neck are unremarkable MRI of the brain is unremarkable No more neurological symptoms and the confusion is resolved Blood pressure has been under control as well She will be discharged home this afternoon following PT and OT evaluation Mild elevation troponin Troponin 20 then 17 then 18 Somewhat abnormal EKG Denies chest pain or shortness of breath Will follow serial enzymes and echo Doubt any ACS-awaiting echo History of CAD s/p stent On aspirin, statin History of COPD Continue home inhalers and nebs as needed History of CVA Postcardiac cath right occipital infarction in 2014 On aspirin and statin Hyperlipidemia Statin Hypothyroidism On Synthyroid Peripheral vascular disease On aspirin and statin 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 She was admitted for confusion thought to be from UTI but CAT scan showed retroperitoneal intraparenchymal hemorrhage 1 x 1 cm Thought to from been on aspirin and Plavix and uncontrolled blood pressure Currently only on aspirin. Blood pressure goal 140/90 as per neurology Abdominal aortic aneurysm about 4 cm Distal thoracic aortic aneurysm 3.6 cm Suspected aortic ulceration medially at the level of the aortic hiatus on CT scan on July 2023 it was also present on CT scan in September 2018 Follows with vascular surgery DVT prophylaxis SCDs for now Disposition Med/telemetry Full code Addendum 11/03/2023: Patient was seen and examined at bedside. Patient was sitting up in chair, not in any acute distress. Patient is alert and oriented x 4, reports moving around okay and reports being back to her baseline strength. Patient reports eating okay and moving bowels okay. Per RN no acute concerns. nocturnal pulse oximetry and two-step test reviewed, patient needs 3 L oxygen with activity and 2 L oxygen during sleep. Oxygen prescription provided to shoe caser. Patient is hemodynamically stable and would like to go home. Since being discharged with following instruction at the point of discharge: Follow-up with your primary care physician within a week time and likely you will need labs CBC/CMP/magnesium/phosphorus. you will be discharged on antibiotic to complete the course for UTI. You needed oxygen with activity, and also you needed oxygen during sleep. You will be discharged on oxygen. You will benefit from outpatient sleep study, coordinate with your PCP office to set up the test. Measure your blood pressure twice a day, maintain a log to take to your primary care physician within a week time for further management/evaluation of your blood pressure. Take your medications as prescribed. Please make sure that you are able to get your medications today by calling your pharmacy before you leave the hospital so that your treatment continuity is not broken. Home Health Attestation I certify that this patient is under my care and that I, or a physicians nyla betancourt working with me, had a face to-face encounter that meets the home health [id number] encounter requirements with this patient. The encounter with the patient was in whole, or in part, for the following medical condition, which is the primary reason for home health care (list medical condition): I certify that, based on my findings, the following services are medically necessary home health services: My clinical findings support the need for the above services because: Further, I certify that my clinical findings support that this patient is homebound (i.e. absences from home require considerable and taxing effort and are for medical reasons or mandaen services or infrequently or of short duration when for other reasons) because: Certification for Home Health Services: Based on the above findings, I certify that this patient is confined to the home and needs intermittent longterm care, physical therapy and/or speech therapy or continues to need occupational therapy. The patient is under my care, and I have initiated the establishment of the plan of care. This patient will be followed by a physician who will periodically review the plan of care. Total Time Total Time Spent Total Time Spent (In Minutes): 45 Discharge Plan Discharge Items Patient Disposition: Home - Self-Care Reason For Visit: UTI, R/O CVA Discharge Diagnosis: AMS Possible UTI COPD with hypoxia Nocturnal hypoxemia Activity: Resume your previous activity Non-emergency contact: Primary Care Provider Call non-emergency contact if: you have any medication questions and your symptoms worsen Follow-up/Referrals: Jocy Stafford, [Primary Care Provider] - (Date & Time 11/09/2023 2:20 PM Provider Guillermina Hall MD Department Family [facility] ) Diet: Heart Healthy Diet Texture: Easy to Chew Addtl Attending Provider Instructions: Follow-up with your primary care physician within a week time and likely you will need labs CBC/CMP/magnesium/phosphorus. you will be discharged on antibiotic to complete the course for UTI. You needed oxygen with activity, and also you needed oxygen during sleep. You will be discharged on oxygen. You will benefit from outpatient sleep study, coordinate with your PCP office to set up the test. Measure your blood pressure twice a day, maintain a log to take to your primary care physician within a week time for further management/evaluation of your blood pressure. Take your medications as prescribed. Please make sure that you are able to get your medications today by calling your pharmacy before you leave the hospital so that your treatment continuity is not broken. Pending Studies at Discharge: No Stand-Alone Forms: [employer], Smoking Cessation Medications and DC Order Prescriptions: New lisinopril 10 mg Tablet 10 mg PO QAM Qty: 30 0RF Continued atorvastatin 80 mg tablet 80 mg PO QAM oxycodone-acetaminophen 5-325 mg tablet 1 tab PO DAILY PRN (Reason: Pain) aspirin [Aspirin Low-Strength] 81 mg Tablet,Delayed Release (Dr/Ec) 81 mg PO DAILY duloxetine 60 mg capsule,delayed release(DR/EC) 60 mg PO QAM amlodipine 5 mg tablet 5 mg PO QAM cyanocobalamin (vitamin B-12) 1,000 mcg Tablet 1,000 mcg PO DAILY coenzyme Q10 [Co Q-10] 200 mg Capsule 200 mg PO DAILY nitroglycerin [Nitrostat] 0.4 mg Tablet, Sublingual 0.4 mg sublingual .EVERY 5 MINUTES MDD 3 doses PRN (Reason: Chest Pain) Rx Instructions: call 911 if symptoms do not subside albuterol sulfate 90 mcg/actuation Hfa Aerosol Inhaler 2 puff INHALATION Q4 PRN (Reason: Wheezing) albuterol sulfate 2.5 mg/0.5 mL solution for nebulization 2.5 mg inhalation Q4H PRN (Reason: bronchospasm) Qty: 30 0RF levothyroxine 25 mcg tablet 25 mcg PO DAILY buspirone 5 mg tablet 5 mg PO BID cefdinir 300 mg capsule 300 mg PO BID 3 Days Qty: 6 0RF Discontinued lisinopril 5 mg tablet 5 mg PO QAM Discharge Orders: Discharge Order (Routine); Ordered 11/03/23 Ordered By: Ever Freire Admission Data Admit Date/Time: 11/01/23 04:01 Attending Provider: Ever Freire Admit Provider: Robinson Claudio Primary Care Provider: Jocy Stafford Other Providers: Robinson Claudio
== END 2023-11-03 16:32 | disposition home or self-care (01) | DRG 689 ==
LOC: ED 23:25 → SUATTDRO 11-01 04:01 → 2S 11-01 04:01

== ENCOUNTER 2023-12-13 18:52 | Inpatient (IN) ==
[2023-12-13 20:53] LABS: Basophils # (auto) 0.05 K/uL (0.00-0.20); Basophils % (auto) 0.6 %; Eosinophils # (auto) 0.17 K/uL (0.00-0.50); Eosinophils % (auto) 1.9 %; Hematocrit (blood only) 38.5 % (37.0-47.0); Hemoglobin 12.9 g/dl (12.0-16.0); Immature Granulocytes # (auto) 0.04 K/uL (0.01-0.20); Immature Granulocytes % (auto) 0.4 %; Lymphocytes # (auto) 0.83 K/uL (1.20-3.40); Lymphocytes % (auto) 9.3 %; Mean Corpuscular Hemoglobin 29.6 pg (25.0-34.0); Mean Corpuscular Hgb Conc 33.5 g/dL (32.0-36.0); Mean Corpuscular Volume 88.3 fL (80.0-100.0); Monocytes # (auto) 0.75 K/uL (0.11-0.59); Monocytes % (auto) 8.4 %; Neutrophils # (auto) 7.12 K/uL (1.40-6.50); Neutrophils % (auto) 79.4 %; Platelet Count 192 K/uL (130-400); RDW Standard Deviation 45.1 fL (36.4-46.3); Red Blood Count 4.36 M/uL (4.20-5.40); White Blood Count 8.96 K/ul (4.8-10.8)
[2023-12-13 21:05] LABS: Alanine Aminotransferase 24 U/L (7-52); Albumin Globulin Ratio 1.5 (0.9-2); Albumin Level 4.3 gm/dl (3.4-5.0); Alkaline Phosphatase 71 U/L (34-104); Anion Gap 7 (3-11); Aspartate Aminotransferase 28 U/L (13-39); BUN Creatinine Ratio 20.4 (10-20); Bilirubin,Total 1.4 mg/dl (0.2-1.0); Blood Urea Nitrogen 22 mg/dl (6-23); Calcium 9.8 mg/dl (8.6-10.3); Carbon Dioxide 26 mmol/L (21-32); Chloride 103 mmol/L (98-107); Est GFR (African American) 56.5 ml/min; Est GFR (Non-African American) 48.8 ml/min; Globulin 2.8 gm/dl (2.5-4.0); Glucose 98 mg/dl (70-99(Fasting)); Potassium 3.7 mmol/L (3.5-5.1); Sodium 136 mmol/L (136-145); Total Protein 7.1 gm/dl (6.0-8.3)
--- NOTE | 2023-12-13 23:01 | Emergency Department Note ---
Impression & Plan Closed T12 fracture ED Provider Note Provider: Buddy Inman MD DATE OF SERVICE: 12/13/2023 CHIEF COMPLAINT: Uncontrollable back pain HISTORY OF PRESENT ILLNESS: Patient is a 78-year-old female seen here several days ago after lifting injury and fall diagnosed with a T12 compression fracture. Has not been doing well with pain medicine at home including Percocet. Had a video appointment with her [facility] doctors today and referred back here. Lives by herself and son states he is not doing well and unable to get around well. Not drinking well. Patient states he did have to wait several hours to be seen and is developed a little bit of lower mid abdominal discomfort while here as well. Denies numbness or tingling extremities. No new falls. No significant chest pain or fevers reported. Lidocaine patch is not helping with pain either. PAST MEDICAL HISTORY: As noted above MEDICATIONS: Reviewed on medication list currently includes Percocet SOCIAL HISTORY: Lives at home by herself PHYSICAL EXAM: GENERAL: alert and oriented in no acute distress on stretcher appears uncomfortable Head: normocephalic and atraumatic EYES: No injection, discharge or icterus. NECK: Trachea midline. ENT: Mucous membranes pink and moist LUNGS: Airway patent. No retractions or tachypnea HEART: Regular rate and rhythm. No chest wall tenderness ABDOMEN: Soft with moderate mid lower abdominal discomfort to palpation. SKIN: Acyanotic, warm, dry, without rashes EXTREMITIES: Without swelling, tenderness or deformity NEUROLOGICAL: No focal deficits. No aphasia. No facial droop or slurred speech. CONTINUOUS CARDIAC MONITORING: was ordered and showed a heart rate of 80s bpm in normal sinus rhythm PDMP was checked without noted issue. Lumbar x-ray per my interpretation: Evidence of some scoliosis and degenerative disc disease in the lower lumbar region with significant T12 compression fracture. Patient's laboratory studies and imaging reviewed. Differential includes Musculoskeletal, disc herniation, fracture, metastatic disease, cord compression, discitis, sciatica, cauda equina, infection, aortic disease, renal colic, gastrointestinal, diverticulitis, perforation, pancreatitis as well as other pathologies. IMPRESSION/MEDICAL DECISION MAKING: From triage basic blood ordered. No significant leukocytosis or anemia. No significant electrolyte abnormalities or renal dysfunction. Evidence of hepatitis. Urinalysis sent and a lipase was ordered to exclude pancreatitis or UTI. Seems likely mechanical pain from the prior fall and T12 fracture. Not having neurological deficits or numbness or tingling in the lower extremity. No new falls. Not caring for self well at home and uncontrolled pain. On examination in the room however the patient does have some mild mid lower abdominal tenderness. As such we will obtain CT scan of the abdomen pelvis today to exclude other acute intra-abdominal pathology possible constipation given the use of narcotics recently. Will need to come in if she lives by herself and cannot care for self given her uncontrolled pain. Urinalysis not indicative of UTI. CT scan of the abdomen pelvis without acute findings other than the T12 compression fracture. On reassessment the patient's abdomen is not significantly tender. Patient a little bit hypoxic while resting here and it is reasonable oxygen at night. Doubt pneumonia, fluid overload, or any significant respiratory issue. Will bring in for further care given her poor pain control and likely need for rehab. Patient and son in agreement with this plan. Hospitalist was contacted. DIAGNOSIS: T12 compression fracture, abdominal pain DISPOSITION: Hospitalist will evaluate Patient was agreeable with this plan. Past Med/Surg History Problem List (Updated 12/14/23 @ 02:25 by Buddy Inman M.D.) Closed T12 fracture (Acute) Acute back pain (Acute) Closed burst fracture of T12 vertebra (Acute) AMS (altered mental status) Behavioral change (Acute) Hypertension (Acute) Stented coronary artery (Chronic) UTI (urinary tract infection) (Acute) Hypothyroidism (Acute) Pneumonitis (Acute) Asthma (Chronic) Coronary artery disease (Chronic) History of hysterectomy Back pain (Acute) Back pain (Acute) Emphysema (Chronic) SOB (shortness of breath) (Acute 08/07/14) Atypical pneumonia (Acute 08/07/14) Elevated troponin (Acute 08/09/14) Confusion (Acute) Urinary tract infection (Acute) Altered mental status (Acute) Dehydration (Acute) Social History Smoking Status: Former smoker Second Hand Exposure: No; Do You Dip or Chew Tobacco: No; Hx Alcohol Use: No Hx Substance Use: No Preferred Language: Khmer Communication Ability: Effective Communication Ability Comment: hard of hearing Airline Dispatcher Required: No Beliefs That Will Affect Care: None Current Living Situation: Alone Current Living Situation Comment: son lives with patient Feels Safe at Home: Yes Assistive Devices: None Allergies Allergies Allergy/AdvReac Type Severity Reaction Status Date / Time naproxen Allergy Intermediate PAIN IN Verified 12/14/23 00:41 CHEST prednisone Allergy Intermediate PAIN IN Verified 12/14/23 00:41 CHEST sulindac Allergy Intermediate PAIN IN Verified 12/14/23 00:41 CHEST Home Meds Home Medications Medication Instructions Recorded Confirmed atorvastatin 80 mg tablet 80 mg PO QAM 12/23/18 12/14/23 oxycodone-acetaminophen 5 mg-325 1 tab PO DAILY PRN Pain 12/23/18 12/14/23 mg tablet aspirin 81 mg tablet,delayed 81 mg PO DAILY 06/11/22 12/14/23 release duloxetine 60 mg capsule,delayed 60 mg PO QAM 06/11/22 12/14/23 release albuterol sulfate 90 mcg/actuation 2 puff inhalation Q4 PRN Wheezing 06/12/22 12/14/23 aerosol inhaler amlodipine 5 mg tablet 5 mg PO QAM 06/12/22 12/14/23 coenzyme Q10 200 mg capsule (Co 200 mg PO DAILY 06/12/22 12/14/23 Q-10) cyanocobalamin (vitamin B-12) 1,000 mcg PO DAILY 06/12/22 12/14/23 1,000 mcg tablet nitroglycerin 0.4 mg sublingual 0.4 mg sublingual .EVERY 5 MINUTES 06/12/22 12/14/23 tablet (Nitrostat) PRN Chest Pain buspirone 5 mg tablet 5 mg PO BID 11/01/23 12/14/23 levothyroxine 25 mcg tablet 25 mcg PO DAILY 11/01/23 12/14/23 Previous Rx's Medication Instructions Recorded albuterol sulfate 2.5 mg/0.5 mL 2.5 mg (0.5 mL) inhalation Q4H PRN 06/12/22 solution for nebulization bronchospasm #30 ea lisinopril 10 mg tablet 10 mg PO QAM #30 tabs 11/03/23 lidocaine 5 % topical patch 1 patch topical DAILY #15 ea 12/11/23 Results & Data (ED) Vital Signs Vital Signs - 24 hr 12/13/23 19:10 12/14/23 00:00 12/14/23 00:44 Temperature 36.1 C L Temperature Source Temporal Artery Scan Pulse Rate 80 82 Pulse Rate [Apical] 82 Pulse Rhythm [Apical] Pulse Strength [Apical] Respiratory Rate 18 16 Respiratory Effort / Characteristics Non-Labored Respiratory Depth Normal Blood Pressure 137/76 Blood Pressure [Right Arm] 153/77 H Blood Pressure Mean 96 Blood Pressure Mean [Right Arm] 102 Pulse Oximetry 94 99 Oxygen Delivery Method Room Air Sepsis Recent Fever Within 48 Hours No Sepsis New/Unexplained Change in Mental Status No Sepsis Action Taken by Nursing No Action Required 12/14/23 02:00 Temperature Temperature Source Pulse Rate Pulse Rate [Apical] 85 Pulse Rhythm [Apical] Regular Pulse Strength [Apical] Normal Respiratory Rate 16 Respiratory Effort / Characteristics Non-Labored Spontaneous Respiratory Depth Normal Blood Pressure Blood Pressure [Right Arm] 165/82 H Blood Pressure Mean Blood Pressure Mean [Right Arm] 109 Pulse Oximetry 99 Oxygen Delivery Method Room Air Sepsis Recent Fever Within 48 Hours Sepsis New/Unexplained Change in Mental Status Sepsis Action Taken by Nursing Laboratory Data 12/13/23 20:19 12/13/23 20:19 Lab Results 12/13/23 12/13/23 12/14/23 Range/Units 20:19 22:53 Unknown WBC 8.96 (4.8-10.8) K/ul RBC 4.36 (4.20-5.40) M/uL Hgb 12.9 (12.0-16.0) g/dl Hct 38.5 (37.0-47.0) % MCV 88.3 (80.0-100.0) fL MCH 29.6 (25.0-34.0) pg MCHC 33.5 (32.0-36.0) g/dL RDW Std Deviation 45.1 (36.4-46.3) fL RDW Coeff of Thang 14.0 (11.5-14.5) % Plt Count 192 (130-400) K/uL MPV 10.0 (9.4-12.4) fL Immature Gran % (Auto) 0.4 % Neut % (Auto) 79.4 % Lymph % (Auto) 9.3 % [place] % (Auto) 8.4 % Eos % (Auto) 1.9 % Baso % (Auto) 0.6 % Neut # (Auto) 7.12 H (1.40-6.50) K/uL Lymph # (Auto) 0.83 L (1.20-3.40) K/uL [place] # (Auto) 0.75 H (0.11-0.59) K/uL Eos # (Auto) 0.17 (0.00-0.50) K/uL Baso # (Auto) 0.05 (0.00-0.20) K/uL Immature Gran # (Auto) 0.04 (0.01-0.20) K/uL Sodium 136 (136-145) mmol/L Potassium 3.7 (3.5-5.1) mmol/L Chloride 103 (98-107) mmol/L Carbon Dioxide 26 (21-32) mmol/L Anion Gap 7 (3-11) BUN 22 (6-23) mg/dl Creatinine 1.08 (0.6-1.2) mg/dl Est Cr Clr Drug Dosing Not Reportable Est GFR ( Amer) 56.5 ml/min Est GFR (Non-Af Amer) 48.8 ml/min BUN/Creatinine Ratio 20.4 H (10-20) Glucose 98 (70-99(Fasting)) mg/dl Calcium 9.8 (8.6-10.3) mg/dl Total Bilirubin 1.4 H (0.2-1.0) mg/dl AST 28 (13-39) U/L ALT 24 (7-52) U/L Alkaline Phosphatase 71 (34-104) U/L Total Protein 7.1 (6.0-8.3) gm/dl Albumin 4.3 (3.4-5.0) gm/dl Globulin 2.8 (2.5-4.0) gm/dl Albumin/Globulin Ratio 1.5 (0.9-2) Lipase 21 (11-82) U/L Urine Color Yellow Urine Appearance Clear (Clear) Urine pH 5.5 (4.5-7.5) Ur Specific [place] 1.017 (1.000-1.030) Urine Protein 1+ H (Negative) Urine Glucose (UA) Negative (Negative) Urine Ketones Trace H (Negative) Urine Blood Negative (Negative) Urine Nitrite Negative (Negative) Urine Bilirubin Negative (Negative) Urine Urobilinogen Negative (Negative) Ur Leukocyte Esterase 1+ H (Negative) Urine WBC (Auto) 0-5 (0-5) /hpf Urine RBC (Auto) 0-2 (0-2) /hpf U Hyaline Cast (Auto) 0-2 (0-2) /lpf U Epithel Cells (Auto) 0-2 (0-2) /hpf Urine Bacteria (Auto) None Seen (None Seen) Adenovirus (PCR) Not Detected (NotDetected) B. pertussis DNA (PCR) Not Detected (NotDetected) B.parapertussis DNA PCR Not Detected (NotDetected) C. pneumoniae DNA (PCR) Not Detected (NotDetected) Coronavirus OC43 (PCR) Not Detected (NotDetected) Coronavirus HKU1 (PCR) Not Detected (NotDetected) Coronavirus 229E (PCR) Not Detected (NotDetected) SARS-CoV-2 (PCR) Not Detected (NotDetected) Coronavirus NL63 (PCR) Not Detected (NotDetected) Human Metapneumovir PCR Not Detected (NotDetected) Influenza Type A (PCR) Not Detected (NotDetected) Influenza Type B (PCR) Not Detected (NotDetected) M. pneumoniae (PCR) Not Detected (NotDetected) Parainfluenza 1 (PCR) Not Detected (NotDetected) Parainfluenza 2 (PCR) Not Detected (NotDetected) Parainfluenza 3 (PCR) Not Detected (NotDetected) Parainfluenza 4 (PCR) Not Detected (NotDetected) RSV (PCR) Not Detected (NotDetected) Entero/Rhino (PCR) Not Detected (NotDetected) Administered Medications Discontinued Medications Fentanyl Citrate (Fentanyl Citrate Pf 100 Mcg/2 Ml Vial) 50 mcg IV NOW STA Stop: 12/13/23 22:57 Last Admin: 12/13/23 23:53 Dose: 50 mcg Documented By: REY Sodium Chloride (Nss) 500 mls @ 999 mls/hr IV .Q31M ONE Stop: 12/13/23 23:26 Last Infusion: 12/14/23 00:33 Dose: Infused Documented By: Admin: 12/13/23 23:57 Dose: 999 mls/hr Documented By: [facility] Ioversol (Optiray 320 100ml) 100 ml IV ONCE ONE Stop: 12/13/23 23:43 Last Admin: 12/13/23 23:43 Dose: 92 ml Documented By: JERMAN Imaging Data Radiologist's Impression: Abdomen/Pelvis CT 12/13/23 22:55 Exam(s): CT ABDOMEN + PELVIS With Contrast IV Amt: 92 ML OPTIRAY 320 EXAM: CT Abdomen and Pelvis With Intravenous Contrast CLINICAL HISTORY: Reason for exam: abd pain, lumbar frac. TECHNIQUE: Axial computed tomography images of the abdomen and pelvis with intravenous contrast. CTDI is 15.52 mGy and DLP is 694.94 mGy-cm. Automated exposure control was utilized for the study. A dose lowering technique was utilized adhering to the principles of ALARA. CONTRAST: Patient received 92 ML OPTIRAY 320 of IV contrast COMPARISON: 08/16/2017 Cholelithiasis distended gallbladder. FINDINGS: Limitations: Exam limited secondary to patient respiratory motion. Lung bases: Unremarkable. No mass. No consolidation. ABDOMEN: Liver: Unremarkable. No mass. Gallbladder and bile ducts: Unremarkable. No calcified stones. No ductal dilation. Pancreas: Unremarkable. No mass. No ductal dilation. Spleen: Unremarkable. No splenomegaly. Adrenals: Unremarkable. No mass. Kidneys and ureters: Unremarkable. No solid mass. No hydronephrosis. Stomach and bowel: 4.4 x 3.5 cm suprarenal abdominal aorta diverticulosis without acute diverticulitis. Diverticulosis without evidence of diverticulitis. No obstruction. PELVIS: Appendix: No findings to suggest acute appendicitis. Bladder: Circumferential wall thickening of the urinary bladder which is nondistended. Reproductive: Uterus is surgically absent. ABDOMEN and PELVIS: Intraperitoneal space: Unremarkable. No free air. No significant fluid collection. Bones/joints: Acute T12 vertebral body compression fracture. No dislocation. Soft tissues: Unremarkable. Vasculature: Unremarkable. No abdominal aortic aneurysm. Lymph nodes: Unremarkable. No enlarged lymph nodes. IMPRESSION: No acute findings in the abdomen or pelvis. Acute T12 vertebral body compression fracture resulting in 50% of the body height loss Electronically signed by: Dario Mak MD 12/14/23 02:20 AM Discharge Plan Visit Data Chief Complaint: Back Injury/Pain Stated Complaint: BACK PAIN ED Provider: Buddy Inman Discharge Problem: Closed T12 fracture Patient Disposition: Being Evaluated by Hospitalist Forms Stand Alone Forms: [facility] sarvaMAIL Prescriptions Prescriptions: No Action atorvastatin 80 mg tablet 80 mg PO QAM oxycodone-acetaminophen 5-325 mg tablet 1 tab PO DAILY PRN (Reason: Pain) aspirin 81 mg Tablet,Delayed Release (Dr/Ec) 81 mg PO DAILY duloxetine 60 mg capsule,delayed release(DR/EC) 60 mg PO QAM amlodipine 5 mg tablet 5 mg PO QAM cyanocobalamin (vitamin B-12) 1,000 mcg Tablet 1,000 mcg PO DAILY coenzyme Q10 [Co Q-10] 200 mg Capsule 200 mg PO DAILY nitroglycerin [Nitrostat] 0.4 mg Tablet, Sublingual 0.4 mg sublingual .EVERY 5 MINUTES MDD 3 doses PRN (Reason: Chest Pain) Rx Instructions: call 911 if symptoms do not subside albuterol sulfate 90 mcg/actuation Hfa Aerosol Inhaler 2 puff INHALATION Q4 PRN (Reason: Wheezing) albuterol sulfate 2.5 mg/0.5 mL solution for nebulization 2.5 mg inhalation Q4H PRN (Reason: bronchospasm) Qty: 30 0RF lidocaine 5 % adhesive patch,medicated 1 patch topical DAILY Qty: 15 0RF Rx Instructions: leave on most painful area for up to 12 hrs levothyroxine 25 mcg tablet 25 mcg PO DAILY buspirone 5 mg tablet 5 mg PO BID lisinopril 10 mg Tablet 10 mg PO QAM Qty: 30 0RF Referrals Referrals: Jocy Stafford DO [Primary Care Provider] - Discharge Problem: Closed T12 fracture Qualifiers: Encounter type: initial encounter Fracture morphology: unspecified fracture morphology Qualified Code(s): S22.089A - Unspecified fracture of T11-T12 vertebra, initial encounter for closed fracture
[2023-12-13 23:17] LABS: Appearance Urine Clear (Clear); Bacteria Urine Automated None Seen (None Seen); Bilirubin Urine Negative (Negative); Blood Urine Negative (Negative); Cast Urine Automated 0-2 /lpf (0-2); Color Urine Yellow; Epithelial Cell Urine Auto 0-2 /hpf (0-2); Glucose Urine UA Negative (Negative); Ketones Urine Trace (Negative); Leukocyte Esterase Urine 1+ (Negative); Nitrite Urine Negative (Negative); Protein Urine 1+ (Negative); RBC Urine Automated 0-2 /hpf (0-2); Specific Gravity Urine 1.017 (1.000-1.030); Urobilinogen Urine Negative (Negative); WBC Urine Automated 0-5 /hpf (0-5); pH Urine 5.5 (4.5-7.5)
[2023-12-13 23:19] LABS: Lipase 21 U/L (11-82)
[2023-12-13] MEDS: OPTIRAY 320 100ml IV ONE (23:43)
[2023-12-13] MEDS: fentaNYL citrate PF 100 MCG/2 ML VIAL IV STA (23:53)
[2023-12-13] MEDS: SODIUM CHLORIDE 0.9% 500 ML IV ONE (23:57)
[2023-12-14 01:33] LABS: Adenovirus PCR Not Detected (NotDetected); Bordetella parapertussis PCR Not Detected (NotDetected); Bordetella pertussis PCR Not Detected (NotDetected); Chlamydia pneumoniae PCR Not Detected (NotDetected); Coronavirus 229E PCR Not Detected (NotDetected); Coronavirus CoV-2 (COVID19)PCR Not Detected (NotDetected); Coronavirus HKU1 PCR Not Detected (NotDetected); Coronavirus NL63 PCR Not Detected (NotDetected); Coronavirus OC43PCR Not Detected (NotDetected); Human Metapneumovirus PCR Not Detected (NotDetected); Influenza A PCR Not Detected (NotDetected); Influenza B PCR Not Detected (NotDetected); Mycoplasma pneumoniae PCR Not Detected (NotDetected); Parainfluenza Virus 1 PCR Not Detected (NotDetected); Parainfluenza Virus 2 PCR Not Detected (NotDetected); Parainfluenza Virus 3 PCR Not Detected (NotDetected); Parainfluenza Virus 4 PCR Not Detected (NotDetected); Respiratory Syncytial VirusPCR Not Detected (NotDetected); Rhinovirus/Enterovirus PCR Not Detected (NotDetected)
--- NOTE | 2023-12-14 01:59 | History & Physical Report ---
Date of Service December 14, 2023 Assessment & Plan (1) Acute back pain: Plan: 78 year-old female with past medical significant for hyperlipidemia, hypothyroidism, COPD, silent sinus syndrome, history of CVA, history of ulcer of aorta, peripheral vascular disease, hypertension, CAD, abdominal aortic aneurysm, B12 deficiency, GERD, CKD stage III, fibromyalgia, osteoporosis, peripheral sensory neuropathy, history of medical marijuana use, history of intracranial hemorrhage who lives at home alone was brought in by son because of back pain and ambulatory dysfunction. Few days ago patient was trying to lift a window AC unit when felt sharp pain in the back which was progressively getting worse and was in the ER on December 10 and imaging studies showed closed burst fracture of T12 vertebrae and patient was discharged on pain medications and lidocaine patch. But as per son, patient is not doing well at home. Have a lot of back pain. She has not been able to get up from the bed. And not ambulating. Appetite went down. So son brought her back to the hospital today. Patient is very hard of hearing. Son helped with H&P. Currently patient denies headache. Denies blurred vision. No runny nose or sore throat. Has chronic cough from her COPD. No difficulty swallowing. No chest pain. Currently no shortness of breath. When she takes deep breath back is hurting. And has abdominal discomfort. Constipated. Micturating okay. Prior to the f all she was able to ambulate without support. Patient supposed to be on oxygen 2 L during sleep and 3 L with oxygen with activity. As per the son patient currently using oxygen only while sleeping. Hemodynamics are okay currently. In October of this year patient was admitted for acute metabolic encephalopathy secondary to UTI and hypertensive urgency. Acute back pain compression fracture of T12 pain control orthospine consult PT OT history of COPD had nocturnal pulse ox on last admission supposed to be on oxygen 3 L with activity and 2 L with sleeping and presently she is only using while sleeping as per son. Continue home inhalers and nebs as needed. 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 She was admitted for confusion thought to be from UTI but CAT scan showed retroperitoneal intraparenchymal hemorrhage 1 x 1 cm Thought to from been on aspirin and Plavix and uncontrolled blood pressure Currently only on aspirin. Blood pressure goal 140/90 as per neurology Abdominal aortic aneurysm about 4 cm Distal thoracic aortic aneurysm 3.6 cm Suspected aortic ulceration medially at the level of the aortic hiatus on CT scan on July 2023 it was also present on CT scan in September 2018 Follows with vascular surgery DVT prophylaxis Lovenox disposition medical floor full code. History of Present Illness Chief Complaint: back pain and ambulatory dysfunction Primary Care Provider: Jocy Stafford DO 78 year-old female with past medical significant for hyperlipidemia, hypothyroidism, COPD, silent sinus syndrome, history of CVA, history of ulcer of aorta, peripheral vascular disease, hypertension, CAD, abdominal aortic aneurysm, B12 deficiency, GERD, CKD stage III, fibromyalgia, osteoporosis, peripheral sensory neuropathy, history of medical marijuana use, history of intracranial hemorrhage who lives at home alone was brought in by son because of back pain and ambulatory dysfunction. Few days ago patient was trying to lift a window AC unit when felt sharp pain in the back which was progressively getting worse and was in the ER on December 10 and imaging studies showed closed burst fracture of T12 vertebrae and patient was discharged on pain medications and lidocaine patch. But as per son, patient is not doing well at home. Have a lot of back pain. She has not been able to get up from the bed. And not ambulating. Appetite went down. So son brought her back to the hospital today. Patient is very hard of hearing. Son helped with H&P. Currently patient denies headache. Denies blurred vision. No runny nose or sore throat. Has chronic cough from her COPD. No difficulty swallowing. No chest pain. Currently no shortness of breath. When she takes deep breath back is hurting. And has abdominal discomfort. Constipated. Micturating okay. Prior to the fall she was able to ambulate without support. Patient supposed to be on oxygen 2 L during sleep and 3 L with oxygen with activity. As per the son patient currently using oxygen only while sleeping. Hemodynamics are okay currently. In October of this year patient was admitted for acute metabolic encephalopathy secondary to UTI and hypertensive urgency. Past medical history. As mentioned above. Past surgical history. Cardiac cath. Colonoscopy. Bilateral complete removal of breast in 1981. Coronary stenting. Total abdominal hysterectomy with removal of tubes. Social history. . Lives with her son. Quit smoking in 2013. Smoked 1 pack a day for 40 years. No drug use. No alcohol use. Family history. Father had hip fracture ,osteoporosis. Brother has arthritis, sister has arthritis. Brother has hypertension Allergies Allergy/AdvReac Type Severity Reaction Status Date / Time naproxen Allergy Intermediate PAIN IN Verified 12/14/23 00:41 CHEST prednisone Allergy Intermediate PAIN IN Verified 12/14/23 00:41 CHEST sulindac Allergy Intermediate PAIN IN Verified 12/14/23 00:41 CHEST Home Medications Medication Instructions Recorded Confirmed Type atorvastatin 80 mg tablet 80 mg PO QAM 12/23/18 12/14/23 History oxycodone-acetaminophen 5 mg-325 1 tab PO DAILY PRN Pain 12/23/18 12/14/23 History mg tablet aspirin 81 mg tablet,delayed 81 mg PO DAILY 06/11/22 12/14/23 History release duloxetine 60 mg capsule,delayed 60 mg PO QAM 06/11/22 12/14/23 History release albuterol sulfate 2.5 mg/0.5 mL 2.5 mg (0.5 mL) inhalation Q4H PRN 06/12/22 12/14/23 Rx solution for nebulization bronchospasm #30 ea albuterol sulfate 90 mcg/actuation 2 puff inhalation Q4 PRN Wheezing 06/12/22 12/14/23 History aerosol inhaler amlodipine 5 mg tablet 5 mg PO QAM 06/12/22 12/14/23 History coenzyme Q10 200 mg capsule (Co 200 mg PO DAILY 06/12/22 12/14/23 History Q-10) cyanocobalamin (vitamin B-12) 1,000 mcg PO DAILY 06/12/22 12/14/23 History 1,000 mcg tablet nitroglycerin 0.4 mg sublingual 0.4 mg sublingual .EVERY 5 MINUTES 06/12/22 12/14/23 History tablet (Nitrostat) PRN Chest Pain buspirone 5 mg tablet 5 mg PO BID 11/01/23 12/14/23 History levothyroxine 25 mcg tablet 25 mcg PO DAILY 11/01/23 12/14/23 History lisinopril 10 mg tablet 10 mg PO QAM #30 tabs 11/03/23 12/14/23 Rx lidocaine 5 % topical patch 1 patch topical DAILY #15 ea 12/11/23 12/14/23 Rx Past Med/Surg History Problem List (Updated 12/14/23 @ 02:25 by Budyd Inman M.D.) Closed T12 fracture (Acute) Acute back pain (Acute) Closed burst fracture of T12 vertebra (Acute) AMS (altered mental status) Behavioral change (Acute) Hypertension (Acute) Stented coronary artery (Chronic) UTI (urinary tract infection) (Acute) Hypothyroidism (Acute) Pneumonitis (Acute) Asthma (Chronic) Coronary artery disease (Chronic) History of hysterectomy Back pain (Acute) Back pain (Acute) Emphysema (Chronic) SOB (shortness of breath) (Acute 08/07/14) Atypical pneumonia (Acute 08/07/14) Elevated troponin (Acute 08/09/14) Confusion (Acute) Urinary tract infection (Acute) Altered mental status (Acute) Dehydration (Acute) Social History Smoking Status: Never smoker Second Hand Exposure: No; Do You Dip or Chew Tobacco: No; Hx Alcohol Use: No Hx Substance Use: No Preferred Language: Pashto Communication Ability: Effective Communication Ability Comment: hard of hearing [employer] Required: No Beliefs That Will Affect Care: None Current Living Situation: Alone and Family Current Living Situation Comment: Alone with visiting and helping family members Other Information That Helps Us Care for You: No Feels Safe at Home: Yes Safety Concerns: Feels Safe At This Time Assistive Devices: Denture - Upper, Denture - Lower, Glasses and Hearing Aid - Bilateral Review of Systems Review of Systems: All systems reviewed & are unremarkable except as noted in HPI & below Physical Exam Physical Exam: General- Not in distress Head- atraumatic Eyes- PERRL. ENT- oropharynx clear Neck- supple, no JVD. Lungs- clear to auscultation no wheezing or crackles. Heart- regular rhythm; no murmur, no gallop. Abdomen- normal bowel sounds, soft, nontender, no distension. Extremities- no pretibial edema, no erythema seen. Neuro- alert, oriented ; PERRL, no facial palsy; no dysarthria; moves extremities Musculoskeletal Spinal tenderness in low thoracic spine present Skin- warm & dry Results & Data Results & Data Vital Signs (Past 12 Hours) Vital Signs Temp Pulse Pulse Resp BP BP Pulse Ox 12/14/23 00:44 82 12/14/23 00:00 82 16 153/77 H 99 12/13/23 19:10 36.1 C L 80 18 137/76 94 O2 Del Method 12/14/23 00:44 12/14/23 00:00 12/13/23 19:10 Room Air Diagnostic Findings Laboratory Results WBC 8.96 K/ul (4.8-10.8) 12/13/23 20:19 RBC 4.36 M/uL (4.20-5.40) 12/13/23 20:19 Hgb 12.9 g/dl (12.0-16.0) 12/13/23 20:19 Hct 38.5 % (37.0-47.0) 12/13/23 20:19 MCV 88.3 fL (80.0-100.0) 12/13/23 20:19 MCH 29.6 pg (25.0-34.0) 12/13/23 20:19 MCHC 33.5 g/dL (32.0-36.0) 12/13/23 20:19 RDW Std Deviation 45.1 fL (36.4-46.3) 12/13/23 20:19 RDW Coeff of Thang 14.0 % (11.5-14.5) 12/13/23 20:19 Plt Count 192 K/uL (130-400) 12/13/23 20:19 MPV 10.0 fL (9.4-12.4) 12/13/23 20:19 Immature Gran % (Auto) 0.4 % 12/13/23 20:19 Neut % (Auto) 79.4 % 12/13/23 20:19 Lymph % (Auto) 9.3 % 12/13/23 20:19 [place] % (Auto) 8.4 % 12/13/23 20:19 Eos % (Auto) 1.9 % 12/13/23 20:19 Baso % (Auto) 0.6 % 12/13/23 20:19 Neut # (Auto) 7.12 K/uL (1.40-6.50) H 12/13/23 20:19 Lymph # (Auto) 0.83 K/uL (1.20-3.40) L 12/13/23 20:19 [place] # (Auto) 0.75 K/uL (0.11-0.59) H 12/13/23 20:19 Eos # (Auto) 0.17 K/uL (0.00-0.50) 12/13/23 20:19 Baso # (Auto) 0.05 K/uL (0.00-0.20) 12/13/23 20:19 Immature Gran # (Auto) 0.04 K/uL (0.01-0.20) 12/13/23 20:19 Sodium 136 mmol/L (136-145) 12/13/23 20:19 Potassium 3.7 mmol/L (3.5-5.1) 12/13/23 20:19 Chloride 103 mmol/L (98-107) 12/13/23 20:19 Carbon Dioxide 26 mmol/L (21-32) 12/13/23 20:19 Anion Gap 7 (3-11) 12/13/23 20:19 BUN 22 mg/dl (6-23) 12/13/23 20:19 Creatinine 1.08 mg/dl (0.6-1.2) 12/13/23 20:19 Est Cr Clr Drug Dosing Not Reportable 12/13/23 20:19 Est GFR ( Amer) 56.5 ml/min 12/13/23 20:19 Est GFR (Non-Af Amer) 48.8 ml/min 12/13/23 20:19 BUN/Creatinine Ratio 20.4 (10-20) H 12/13/23 20:19 Glucose 98 mg/dl (70-99(Fasting)) 12/13/23 20:19 Calcium 9.8 mg/dl (8.6-10.3) 12/13/23 20:19 Total Bilirubin 1.4 mg/dl (0.2-1.0) H 12/13/23 20:19 AST 28 U/L (13-39) 12/13/23 20:19 ALT 24 U/L (7-52) 12/13/23 20:19 Alkaline Phosphatase 71 U/L (34-104) 12/13/23 20:19 Total Protein 7.1 gm/dl (6.0-8.3) 12/13/23 20:19 Albumin 4.3 gm/dl (3.4-5.0) 12/13/23 20:19 Globulin 2.8 gm/dl (2.5-4.0) 12/13/23 20:19 Albumin/Globulin Ratio 1.5 (0.9-2) 12/13/23 20:19 Lipase 21 U/L (11-82) 12/13/23 20:19 Urine Color Yellow 12/13/23 22:53 Urine Appearance Clear (Clear) 12/13/23 22:53 Urine pH 5.5 (4.5-7.5) 12/13/23 22:53 Ur Specific [place] 1.017 (1.000-1.030) 12/13/23 22:53 Urine Protein 1+ (Negative) H 12/13/23 22:53 Urine Glucose (UA) Negative (Negative) 12/13/23 22:53 Urine Ketones Trace (Negative) H 12/13/23 22:53 Urine Blood Negative (Negative) 12/13/23 22:53 Urine Nitrite Negative (Negative) 12/13/23 22:53 Urine Bilirubin Negative (Negative) 12/13/23 22:53 Urine Urobilinogen Negative (Negative) 12/13/23 22:53 Ur Leukocyte Esterase 1+ (Negative) H 12/13/23 22:53 Urine WBC (Auto) 0-5 /hpf (0-5) 12/13/23 22:53 Urine RBC (Auto) 0-2 /hpf (0-2) 12/13/23 22:53 U Hyaline Cast (Auto) 0-2 /lpf (0-2) 12/13/23 22:53 U Epithel Cells (Auto) 0-2 /hpf (0-2) 12/13/23 22:53 Urine Bacteria (Auto) None Seen (None Seen) 12/13/23 22:53 Adenovirus (PCR) Not Detected (NotDetected) 12/14/23 Unknown B. pertussis DNA (PCR) Not Detected (NotDetected) 12/14/23 Unknown B.parapertussis DNA PCR Not Detected (NotDetected) 12/14/23 Unknown C. pneumoniae DNA (PCR) Not Detected (NotDetected) 12/14/23 Unknown Coronavirus OC43 (PCR) Not Detected (NotDetected) 12/14/23 Unknown Coronavirus HKU1 (PCR) Not Detected (NotDetected) 12/14/23 Unknown Coronavirus 229E (PCR) Not Detected (NotDetected) 12/14/23 Unknown SARS-CoV-2 (PCR) Not Detected (NotDetected) 12/14/23 Unknown Coronavirus NL63 (PCR) Not Detected (NotDetected) 12/14/23 Unknown Human Metapneumovir PCR Not Detected (NotDetected) 12/14/23 Unknown Influenza Type A (PCR) Not Detected (NotDetected) 12/14/23 Unknown Influenza Type B (PCR) Not Detected (NotDetected) 12/14/23 Unknown M. pneumoniae (PCR) Not Detected (NotDetected) 12/14/23 Unknown Parainfluenza 1 (PCR) Not Detected (NotDetected) 12/14/23 Unknown Parainfluenza 2 (PCR) Not Detected (NotDetected) 12/14/23 Unknown Parainfluenza 3 (PCR) Not Detected (NotDetected) 12/14/23 Unknown Parainfluenza 4 (PCR) Not Detected (NotDetected) 12/14/23 Unknown RSV (PCR) Not Detected (NotDetected) 12/14/23 Unknown Entero/Rhino (PCR) Not Detected (NotDetected) 12/14/23 Unknown Code Status & VTE Plan VTE Prophylaxis Plan VTE Prophylaxis will be ordered: Yes
--- NOTE | 2023-12-14 02:21 | CT Scan Report ---
Exam(s): CT ABDOMEN + PELVIS With Contrast IV Amt: 92 ML OPTIRAY 320 EXAM: CT Abdomen and Pelvis With Intravenous Contrast CLINICAL HISTORY: Reason for exam: abd pain, lumbar frac. TECHNIQUE: Axial computed tomography images of the abdomen and pelvis with intravenous contrast. CTDI is 15.52 mGy and DLP is 694.94 mGy-cm. Automated exposure control was utilized for the study. A dose lowering technique was utilized adhering to the principles of ALARA. CONTRAST: Patient received 92 ML OPTIRAY 320 of IV contrast COMPARISON: 08/16/2017 Cholelithiasis distended gallbladder. FINDINGS: Limitations: Exam limited secondary to patient respiratory motion. Lung bases: Unremarkable. No mass. No consolidation. ABDOMEN: Liver: Unremarkable. No mass. Gallbladder and bile ducts: Unremarkable. No calcified stones. No ductal dilation. Pancreas: Unremarkable. No mass. No ductal dilation. Spleen: Unremarkable. No splenomegaly. Adrenals: Unremarkable. No mass. Kidneys and ureters: Unremarkable. No solid mass. No hydronephrosis. Stomach and bowel: 4.4 x 3.5 cm suprarenal abdominal aorta diverticulosis without acute diverticulitis. Diverticulosis without evidence of diverticulitis. No obstruction. PELVIS: Appendix: No findings to suggest acute appendicitis. Bladder: Circumferential wall thickening of the urinary bladder which is nondistended. Reproductive: Uterus is surgically absent. ABDOMEN and PELVIS: Intraperitoneal space: Unremarkable. No free air. No significant fluid collection. Bones/joints: Acute T12 vertebral body compression fracture. No dislocation. Soft tissues: Unremarkable. Vasculature: Unremarkable. No abdominal aortic aneurysm. Lymph nodes: Unremarkable. No enlarged lymph nodes. IMPRESSION: No acute findings in the abdomen or pelvis. Acute T12 vertebral body compression fracture resulting in 50% of the body height loss Electronically signed by: Dario Mak MD 12/14/23 02:20 AM
--- OUTSIDE RECORDS SUMMARY | 2023-12-14 02:57 | External Medical Summary | Summary of Care ---
Author Name Unknown Organization [facility] Address [address] [place] [address] Phone [phone] Care Team Providers Care Appraiser Name Role Phone Jocy Stafford DO Primary Care Provider Reason for Visit * Reason Comments Emergency Department Follow-Up Encounter Details Date Type Department Care Team (Latest Contact Info) Description 12/13/2023 5:00 PM EDT Telemedicine Family Medicine [address] [id number] Guillermina Hall MD [address] [place] [address] [place] [address] Compression fracture of T12 vertebra with delayed healing, subsequent encounter*; Nodule of upper lobe of right lung; COPD, group B, by GOLD 2017 classification ([facility]) Allergies Active Allergy Reactions Criticality Noted Date Comments Naproxen 05/27/2000 tightness in chest Prednisone 05/27/2000 tightness in chest Sulindac 05/27/2000 tightness in chest documented as of this encounter (statuses as of 12/13/2023) Medications Medication Sig Dispensed Refills Start Date End Date Status ASPIRIN 81 MG PO TABS Take 1 Tablet by mouth in the morning. Active COQ10 200 MG PO CAPSIndications:Gene ralized osteoarthritis Take 1 Cap by mouth daily. 0 08/25/2012 Active Cyanocobalamin (B-12) 1000 MCG CapsuleIndications:B 12 deficiency Take 1 Capsule by mouth in the morning. Every other day. 1 Cap 12/03/2016 Active Albuterol Sulfate 1.25 MG/3ML Inhalation Nebulization Solution Inhale 1.25 mg via nebulizer every 4 hours as needed for Wheezing or Shortness of Breath. 120 mL 1 06/12/2022 Active Albuterol Sulfate HFA 108 (90 Base) MCG/ACT Inhalation Aerosol Solution Inhale 2 Puffs by mouth every 4 hours as needed for Wheezing. 18 g 2 10/06/2022 Active Atorvastatin Calcium 80 MG Oral Tablet (Lipitor)Indications :Dyslipidemia, goal LDL below 100 Take 1 Tablet by mouth in the morning. 90 Tablet 3 11/30/2022 Active amLODIPine Besylate 5 MG Oral Tablet (Norvasc) Take 1 Tablet by mouth in the morning. 90 Tablet 3 12/14/2022 Active busPIRone HCl 5 MG Oral Tablet (Buspar) Take 1 Tablet by mouth in the morning and 1 Tablet before bedtime. 60 Tablet 5 07/09/2023 Active Nitroglycerin 0.4 MG Sublingual Tablet Sublingual (Nitrostat) Place 1 Tablet under the tongue every 5 minutes as needed for Pain, Chest. Do not exceed 3 doses. Call 911 if symptoms do not subside. 25 Tablet 1 11/05/2023 Active Additional Information Patient not taking.Reported on 11/11/2023 DULoxetine HCl 60 MG Oral Capsule Delayed Release Particles (Cymbalta)Indication s:Fibromyalgia TAKE ONE CAPSULE BY MOUTH IN THE MORNING 90 Capsule 11/12/2023 Active Levothyroxine Sodium 25 MCG Oral Tablet (Levoxyl)Indications :Subclinical hypothyroidism Take 1 Tablet by mouth daily first thing in the morning. (at least 30 min prior to breakfast or other meds) 90 Tablet 1 11/12/2023 Active Lisinopril 10 MG Oral Tablet (Prinivil)Indication s:HTN, goal below 130/80 TAKE ONE TABLET BY MOUTH IN THE MORNING 90 Tablet 1 11/29/2023 Active oxyCODONE-Acetaminop hen 5-325 MG Oral Tablet (Percocet)Indication s:MEDICATION USE AGREEMENT,Lumbar degenerative disc disease Take 1 Tablet by mouth daily as needed (pain). Continued script 30 Tablet 12/13/2023 Active documented as of this encounter (statuses as of 12/13/2023) Active Problems Problem Noted Date Diagnosed Date Compression fracture of T12 vertebra 12/13/2023 Nodule of upper lobe of right lung 12/13/2023 Acquired hypothyroidism 07/02/2023 Abdominal aortic aneurysm without rupture 2022 Silent sinus syndrome 01/01/2022 History of intracranial hemorrhage 08/06/2020 Stage 3b chronic kidney disease 04/29/2020 Overview: Per CKD protocol Medical marijuana use 04/17/2020 Gastroesophageal reflux disease without esophagi tis 06/29/2019 Chronic coronary artery disease 06/29/2019 HTN, goal below 130/80 06/28/2019 Contraindication to oral bisphosphonate therapy 12/21/2018 COPD, group B, by GOLD 2017 classification 11/28 Overview: Per COPD GOLD Classification History of calculus of gallbladder 05/09/2018 Ulcer of aorta 09/20/2017 PVD (peripheral vascular disease) 09/20/2017 MEDICATION USE AGREEMENT 05/05/2017 B12 deficiency 12/03/2016 Lumbar spinal stenosis 03/19/2016 Peripheral sensory neuropathy 09/12/2015 Low HDL (under 40) 09/09/2015 Cerebrovascular disease, arteriosclerotic, post- stroke 08/20/2014 Overview: Right occipital lobe and old right cerebellar infarct. Lumbar degenerative disc disease 08/25/2012 Spondylolisthesis of lumbosacral region 08/26/19 13 Clubbing of fingers 08/25/2012 Senile osteoporosis 03/04/2012 Dyslipidemia, goal LDL below 100 05/28/2009 Overview: Per Lipid Taxonomy. GENERAL OSTEOARTHROSIS 01/07/2001 Fibromyalgia documented as of this encounter (statuses as of 12/13/2023) Resolved Problems Problem Noted Date Diagnosed Date Resolved Date Subclinical hypothyroidism 12/09/2022 0 07/02/2023 Abdominal aortic aneurysm (A AA) without rupture 03/14/2020 06/30/2022 Gastroesophageal reflux dise ase without esophagitis 07/03/2019 01/30/2020 Nontraumatic subcortical hem orrhage of right cerebral hemisphere 06/24/2019 08/06/2020 Abnormal urinalysis 06/24/2019 01/30/20 Prediabetes 09/26/2018 10/02/2021 Overview: Per Prediabetes protocol #1 History of breast cancer in female 06/22/2017 06/22/2017 PAD (peripheral artery disease) 06/18/2016 09/13/2018 Primary osteoarthritis of both hips 03/19/2016 12/21/2017 Kidney disease, chronic, sta ge III (GFR 30-59 ml/min) 10/23/2014 05/02/2020 Overview: Per CKD protocol Rotator cuff arthropathy 09/17/201408/2017 Carotid artery plaque 08/13/20142018 Constipation due to pain medication 08/02/2014 12/21/2017 Impaired fasting glucose 07/21/201408/2017 GERD (gastroesophageal reflux disease) 06/27/2014 06/29/2019 Systolic dysfunction, left ventricle 02/14/2014 12/21/2017 CAD (coronary artery disease) 02/14/2014 06/29/2019 Muscle cramp, nocturnal 11/28/2012 070 08/2017 Magnesium deficiency 08/04/2012 017 COPD, mild 03/26/2011 11/30/2018 Overview: Per COPD GOLD Classification ADVANCE DIRECTIVE INFORMATION 10/27/2010 12/21/2017 Overview: No, Advance Directive brochure offered , patient declined. Cardiovascular symptoms 10/27/2010 070 06/2013 Lumbago 08/08/2010 12/19/2013 Coronary atherosclerosis 08/23/2009 Vitamin D deficiency 07/22/2009 018 Overview: Vitamin D 11.1 COPD, severity to be determined 10/26/2005 03/26/2011 DENTURES 09/04/2004 12/19/2013 Tobacco use disorder 03/12/2004 014 OSTEOARTHROS NOS-L-LEG 12/18/200312/19 Dyslipidemia, goal to be determined 06/08/2002 05/28/2009 Overview: Per Lipid Taxonomy. Other and unspecified nonspe cific immunological findings 05/11/2002 12/19/2013 Intermittent claudication 02/02/2002 Anemia 01/07/2001 01/29/2012 Tension headache 01/30/2020 Lateral epicondylitis 2012 CLASSICAL MIGRAINE WITHOU ME NTION OF INTRACTABLE MIGRAINE 12/21/2017 Calculus of gallbladder with out mention of cholecystitis or obstruction 05/09/2018 documented as of this encounter (statuses as of 12/13/2023) Immunizations Name Administration Dates Next Due COVID-19 mRNA, LNP-s, No Pre serve, 2-Dose Series ([id number]) 04/01/2021,07/17/2020,06/26/2020 Covid-19, Mrna, Lnp-s, Pf, B ivalent, 30 Mcg, IM, 12 yrs and above (Pfizer) 05/26/2022 Pneumococcal Conjugate Vacc, 13 Valent (Prevnar) 09/12/2015 Pneumococcal Polysaccharide PPV23 (Pneumovax) 06/21/2012,03/19/2009,02/13/2009(Defe rred: Patient Refused) Season Influenza, Quad, PF, Adjuvanted, 65+ Yrs, IM (FLUAD) 02/28/2020 Seasonal Influenza, PF, 6 M & above, IM , (FluLaval or Fluzone) 03/23/2018,04/03/2017 04/03/2018 Seasonal Influenza, Quadriva lent Hd (Fluzone Hd) 07/02/2023,05/12/2022,03/14/2021 Seasonal Influenza, Quadriva lent, No Preserve, IM 03/04/2016,03/14/2015 Seasonal Influenza, Split, I IV3, With Preserve, Inj 03/22/2014,06/07/2013,06/21/2012,10/2011,05/13/2011,06/30/2010,03/19/20 09 Seasonal Influenza, Trivalen t, Adjuvanted, 65+ yrs 03/29/2019 TD, Preservative Free 11/22/2018 TDAP, Age 7 and older, IM (Adacel) 04/27/2008 documented as of this encounter Social History Tobacco Use Types Packs/Day Years Used Date Smoking Tobacco: Former Cigarettes 1 40 1 06/21/1973 - 04/21/2014 Smokeless Tobacco: Never Alcohol Use Standard Drinks/Week Comments No 0 (1 standard drink = 0.6 oz pur e alcohol) PHQ-2 Answer Date Recorded PHQ Adult Total Score 0 11/05/2023 Hunger Vital Sign Answer Date Recorded Within the past 12 months, y ou worried that your food would run out before you got the money to buy more. Never true 11/11/19 24 Within the past 12 months, t he food you bought just didn't last and you didn't have money to get more. Never true 11/11/2023 Childcare Answer Date Recorded Do you feel overwhelmed with taking care of a child, family member or friend? No 11/11/2023 Does your family need help f inding childcare? (Household - for ages 0-17 years) Not on file 11/11/2023 Clothing Answer Date Recorded Have you been unable to get clothing when it was really needed? No 11/11/2023 Is your family able to get c lothes or diapers when needed? (Household - for ages 0-17 years) Not on file 11/11/2023 Personal Safety Answer Date Recorded Do you feel unsafe or have concerns for your saf ety? No 11/11/2023 Do you have concerns for you r family's safety? (Household - for ages 0-17 years) Not on file 11/11/2023 Utilities Answer Date Recorded Do you have trouble paying y our heating, water, or electric bill? No 11/11/2023 Is your family able to pay t he heat, water, or electric bill? (Household - for ages 0-17 years) Not on file 11/11/2023 Does your family have access to good internet? (Household - for ages 0-17 years) Not on file 11/11/2023 Employment Status Answer Date Recorded Are you unemployed or without regular income? No 11/11/2023 Does the household have a re gular source of income? (Household - for ages 0-17 years) Not on file 11/11/2023 Social Connections Answer Date Recorded How often do you feel lonely or isolated from th ose around you? Never 11/11/2023 Financial Resource Strain Answer Date R ecorded Do you have any trouble payi ng for your medications, or do you think you might in the future? No 11/11/2023 Does your family have troubl e paying for medicine? (Household - for ages 0-17 years) Not on file 11/11/2023 Transportation Needs Answer Date Record ed READ ONLY Do you have troubl e getting a ride to medical visits or work? Never True 11/11/2023 Does your family have a hard time getting a ride to doctors visits? (Household - for ages 0-17 years) Not on file 11/11/2023 Has lack of transportation k ept you from medical appointments, meetings, work, or from getting things needed for daily living? Check all that apply. (Adult - for ages 18 years and over) Not on file 11/11/2023 Do you (or your family) have trouble finding or paying for a ride (transportation)? (Household - for ages 0-17 years) Not on file 11/11/2023 Housing Stability Answer Date Recorded Do you currently live in a s helter or have no steady place to sleep at night? No 11/11/2023 READ ONLY Do you think you a re at risk of becoming homeless? No 11/11/2023 Does your family worry about paying for your home or becoming homeless? (Household - for ages 0-17 years) Not on file 0 11/11/2023 Are you homeless or worried that you might be in the future? (Adult - for ages 18 years and over) Not on file Are you (or your family) berenice eless or worried that you might be in the future? (Household - for ages 0-17 years) Not on file Food Insecurity Answer Date Recorded Do you need food for this week? No 11/11/2023 Are you able to get enough f ood for your family? (Household - for ages 0-17 years) Not on file 11/11/2023 Does your family need food t his week? (Household - for ages 0-17 years) Not on file 11/11/2023 Do you always have enough fo od for your family? (Household - for ages 0-17 years) Not on file 11/11/2023 Sex and Gender Information Value Date Recorded Sex Assigned at Female 03/29/2019 9:07 AM EDT Gender Identity Female 03/29/2019 9:07 AM EDT Sexual Orientation Not on file Job Start Date Occupation Industry Not on file Not on file Not on file documented as of this encounter Functional Status Functional Status Response Date of Assess ment Are you deaf or do you have serious difficulty h earing? No 06/24/2019 Are you blind or do you have serious difficulty seeing, even when wearing glasses? No 06/24/2019 Do you have serious difficul ty walking or climbing stairs? (5 years old or older) No 06/24/2019 Do you have difficulty dress ing or bathing? (5 years old or older) No 06/24/2019 Because of a physical, menta l, or emotional condition, do you have difficulty doing errands alone such as visiting a doctor s office or shopping? (15 years old or older) No 06/24/19 20 Cognitive Status Response Date of Assessm ent Because of a physical, menta l, or emotional condition, do you have serious difficulty concentrating, remembering, or making decisions? (5 years old or older) No 06/24/2019 documented as of this encounter Progress Notes * Guillermina Hall MD - 12/13/2023 5:40 PM EDT Subjective: Bita Rees is a 78 year old female. Chief Complaint Patient presents with Emergency Department Follow-Up HPI: Brief Clinical History Ms. Rees is a 78 year old female last seen in [facility] Coordination [facility] Integration on 12/03/2023 by Amanda Gandara She has a h/o the following chronic conditions indicated on the problem list: Chronic Conditions Cerebrovascular disease, arteriosclerotic, post-stroke COPD, group B, by GOLD 2017 classification ([facility]) MEDICATION USE AGREEMENT PVD (peripheral vascular disease) ([facility]) Stage 3b chronic kidney disease Ulcer of aorta ([facility]) Patient location: HOME. I was in a hospital or clinic location. After connecting through televideo,patient was verified with two unique identifiers. Patient (or authorized legal sales representative printing paper) was then informed that this was a Telemedicine visit and being conducted confidentially over secure lines. Methods to assure confidentiality were taken. Patient acknowledged consent and understanding of pr ivacy and security of the Telemedicine visit. The patient agreed to participate. Patient of Dr. Stafford for ED follow-up. Seen with daughter, Pari, at bedside. Was in [facility] ED on 12/11/23 with severe low back pain. She had a fall about 2 weeks ago and then was lifting an air conditioner about 2 days prior to presentation and felt a pop in her back along with severe pain. The pain c ontinued to worsen. She presented to the ED, and had a lumbar spine CT, which showed an acute to subacute burst type compression fracture of T12 with mild to moderate loss of height and fragments retropulsed by up to 4 mm. There was no significant central canal stenosis and there was paravertebral edema at that level. CT of the thoracic spine showed the same T12 compression fracture and also a 9 mm para-mediastinal nodule questioned in the RUL and follow-up chest CT recommended in 2-3 months. Patient does take Percocet daily at home per PCP and recommended to continue to take this for her pain and was also given lidocaine patches. She was recommended to follow-up with Dr. Ivey in the office for further evaluation. Daughter states patient is in severe pain. Has been getting the Percocet 3 times a day and also Tylenol 3000 mg a day along with Lidocaine and patient screams in pain if she is moved. Daughter and son are having to lift and carry her to move her around the house and she cannot be left alone. She screams while being moved. Cannot sit in a car and daughter states she cannot get her to an office appointment or in or out of a car. Feels she would benefit from a rehab stay but her pain is not controlled at all. The Percocet is giving her no relief. Results for orders placed or performed in visit on 07/02/23 TSH Result Value Ref Range TSH 4.60 (H) 0.27 - 4.20 uIU/mL BASIC METABOLIC PANEL Result Value Ref Range BUN 19 6 - 20 mg/dL Creatinine 1.2 (H) 0.5 - 1.0 mg/dL Estimated Glomerular Filtration Rate 46 (L) >=60 mL/min Sodium 139 135 - 146 mmol/L Potassium 4.6 3.5 - 5.1 mmol/L Chloride 103 98 - 107 mmol/L CO2 23 22 - 32 mmol/L Anion Gap 13 7 - 15 mmol/L Glucose 88 70 - 120 mg/dL Calcium 10.0 8.4 - 10.2 mg/dL URINALYSIS WITH MICROSCOPIC EXAM Result Value Ref Range Color, Urine Yellow Colorless, Light Yellow, Yellow, Dark Yellow Clarity, Urine Cloudy (A) Clear Glucose, Urine Negative Negative mg/dL Bilirubin, Urine Negative Negative Ketone, Urine Negative Negative mg/dL Specific [place], Urine 1.026 1.003 - 1.030 Blood, Urine Negative Negative pH, Urine 5.5 5.0 - 7.5 Units Protein, Urine 30 (A) Negative mg/dL Urobilinogen, Urine 2.0 (A) Normal mg/dL Nitrite, Urine Negative Negative Esterase, Urine Large (A) Negative RBC, Urine 0-2 0 - 2 /HPF WBC, Urine 30-49 (A) 0 - 2 /HPF Bacteria, Urine >200 (A) 0 - 25 /HPF Calcium Oxalate Crystal, Urine 30-49 (A) None /HPF Hyaline, Cast, Urine 5-9 (A) None /LPF Renal Epithelial Cells, Urine 1-4 (A) None /HPF Transitional Epithelial Cells, Urine 1-4 (A) None /HPF ALBUMIN / CREATININE RATIO, URINE Result Value Ref Range Albumin, Random Urine 32.27 mg/dL Creatinine, Random Urine 272 mg/dL Albumin / Creatinine Ratio, Urine 119 (H) <30 mg/g Creat LIPID PANEL WITH DIRECT LDL IF TG IS HIGH Result Value Ref Range Triglycerides 159 <=174 mg/dL Cholesterol 129 <200 mg/dL HDL Cholesterol 39 (L) >49 mg/dL Non-HDL Cholesterol 90 <=159 mg/dL LDL CHOLESTEROL (DIRECT MEASURE) Result Value Ref Range LDL Cholesterol (Direct Measure) 64 <=129 mg/dL *Note: Due to a large number of results and/or encounters for the requested time period, some results have not been displayed. A complete set of results can be found in Results Review. PHM: Patient Active Problem List Diagnosis GENERAL OSTEOARTHROSIS Fibromyalgia Dyslipidemia, goal LDL below 100 Senile osteoporosis Lumbar degenerative disc disease Spondylolisthesis of lumbosacral region Clubbing of fingers Cerebrovascular disease, arteriosclerotic, post-stroke Low HDL (under 40) Peripheral sensory neuropathy Lumbar spinal stenosis B12 deficiency MEDICATION USE AGREEMENT Ulcer of aorta (HCC) PVD (peripheral vascular disease) ([facility]) History of calculus of gallbladder COPD, group B, by GOLD 2017 classification ([facility]) Contraindication to oral bisphosphonate therapy HTN, goal below 130/80 Gastroesophageal reflux disease without esophagitis Chronic coronary artery disease Medical marijuana use Stage 3b chronic kidney disease History of intracranial hemorrhage Silent sinus syndrome Abdominal aortic aneurysm without rupture (HCC) Acquired hypothyroidism Current Outpatient Medications Medication Sig Dispense Refill ASPIRIN 81 MG PO TABS Take 1 Tablet by mouth in the morning. COQ10 200 MG PO CAPS Take 1 Cap by mouth daily. 0 Cyanocobalamin (B-12) 1000 MCG Capsule Take 1 Capsule by mouth in the morning. Every other day. 1 Cap 0 Albuterol Sulfate 1.25 MG/3ML Inhalation Nebulization Solution Inhale 1.25 mg via nebulizer every 4hours as needed for Wheezing or Shortness of Breath. 120 mL 1 Albuterol Sulfate HFA 108 (90 Base) MCG/ACT Inhalation Aerosol Solution Inhale 2 Puffs by mouth every 4 hours as needed for Wheezing. 18 g 2 Atorvastatin Calcium 80 MG Oral Tablet (Lipitor) Take 1 Tablet by mouth in the morning. 90 Tablet 3 amLODIPine Besylate 5 MG Oral Tablet (Norvasc) Take 1 Tablet by mouth in the morning. 90 Tablet 3 busPIRone HCl 5 MG Oral Tablet (Buspar) Take 1 Tablet by mouth in the morning and 1 Tablet before bedtime. 60 Tablet 5 Nitroglycerin 0.4 MG Sublingual Tablet Sublingual (Nitrostat) Place 1 Tablet under the tongue every5 minutes as needed for Pain, Chest. Do not exceed 3 doses. Call 911 if symptoms do not subside. (Patient not taking: Reported on 11/11/2023) 25 Tablet 1 DULoxetine HCl 60 MG Oral Capsule Delayed Release Particles (Cymbalta) TAKE ONE CAPSULE BY MOUTH INTHE MORNING 90 Capsule 1 Levothyroxine Sodium 25 MCG Oral Tablet (Levoxyl) Take 1 Tablet by mouth daily first thing in the morning. (at least 30 min prior to breakfast or other meds) 90 Tablet 1 Lisinopril 10 MG Oral Tablet (Prinivil) TAKE ONE TABLET BY MOUTH IN THE MORNING 90 Tablet 1 oxyCODONE-Acetaminophen 5-325 MG Oral Tablet (Percocet) Take 1 Tablet by mouth daily as needed (pain). Continued script 30 Tablet 0 No current facility-administered medications for this visit. Past Medical History: Diagnosis Date B12 deficiency 12/03/2016 CAD (coronary artery disease) 02/14/2014 Calculus of gallbladder without mention of cholecystitis or obstruction Carotid artery plaque 08/13/2014 Cerebrovascular disease, arteriosclerotic, post-stroke 08/20/2014 Right occipital lobe and old right cerebellar infarct. Clubbing of fingers 08/25/2012 Constipation due to pain medication 08/02/2014 COPD, mild ([facility]) 03/26/2011 Coronary atherosclerosis 08/23/2009 Cystitis 02/24/2022 >100,000 E coli sensitive to Cipro Cystitis 02/04/2023 >100,000 pansensitive E Coli DENTURES Dyslipidemia, goal to be determined GERD (gastroesophageal reflux disease) 06/27/2014 Impaired fasting glucose 07/21/2014 Kidney disease, chronic, stage III (GFR 30-59 ml/min) ([facility]) 10/23/2014 Lateral epicondylitis Low HDL (under 40) 09/09/2015 Lumbago 08/08/2010 Lumbar degenerative disc disease 08/25/2012 Lumbar spinal stenosis 03/19/2016 MEDICATION USE AGREEMENT 09/12/2013 Muscle cramp, nocturnal 11/28/2012 Myalgia and myositis Nontraumatic subcortical hemorrhage of right cerebral hemisphere ([facility]) 06/24/2019 OSTEOARTHROS NOS-L-LEG 12/18/2003 PAD (peripheral artery disease) ([facility]) 06/18/2016 Peripheral sensory neuropathy 09/12/2015 Primary osteoarthritis of both hips 03/19/2016 Rotator cuff arthropathy 09/17/2014 Senile osteoporosis 03/04/2012 Spondylolisthesis of lumbosacral region 08/25/2012 Systolic dysfunction, left ventricle 02/14/2014 Tension headache Tobacco use disorder 03/12/2004 Vitamin D deficiency 07/22/2009 Vitamin D 11.1 Past Surgical History: Procedure Laterality Date CARDIAC CATH SCANNED RESULT 02/06/14 Dr. Yoana Bourne hsp - CAD - RCA and 2nd [employer] COLONOSCOPY, DIAGNOSTIC (RECTUM) 09/21/2018 lipoma, diverticulosis/COLONOSCOPY FLEXIBLE PROXIMAL DIAGNOSTIC performed by Zev Easton MD at ENDOSCOPY [facility] COMPLETE REMOVAL OF BREAST, SIMPLE 1982 bilateral EGD, FLEXIBLE, DIAGNOSTIC 09/21/2018 normal bx, hiatal hernia/ESOPHAGOGASTRODUODENOSCOPY (EGD), FLEXIBLE, TRANSORAL, DIAGNOSTIC performed by Zev Easton MD at ENDOSCOPY [facility] INFORMATION 08/16/09 coronary stenting -Promus L-/S-SPINE PARAVERTEBRAL FACET INJ,1 LEVEL 04/07/2016 L-/S-SPINE PARAVERTEBRAL FACET INJ, 1 LEVEL performed by Vicente Farrar DO at OR [facility] LOWER LEG/ANKLE SUBQ TUMOR REMOVAL,[id number] 2004 times two right leg TOTAL ABD HYSTERECTOMY W/WO REMOVAL OF TUBE(S) 1971 US ABDOMEN LIMITED 02/15/09 possible gallstone Social History Socioeconomic History Marital status: Spouse name: Not on file Number of children: 5 Years of education: Not on file Highest education level: Not on file Occupational History Occupation: Retired Comment: Video Editor, warehouse insulation worker Tobacco Use Smoking status: Former Current packs/day: 0.00 Average packs/day: 1 pack/day for 40.0 years (40.0 ttl pk-yrs) Types: Cigarettes Start date: 04/21/1974 Quit date: 04/21/2014 Years since quittin.6 Smokeless tobacco: Never Substance and Sexual Activity Alcohol use: No Drug use: No Sexual activity: Not Currently Partners: Male Other Topics Concern Service Not Asked Blood Transfusions No Caffeine Concern No Occupational Exposure No Hobby Hazards No Sleep Concern No Stress Concern No Weight Concern No Special Diet Not Asked Back Care Not Asked Exercise Yes Bike Helmet Not Asked Seat Belt Yes Self-Exams Not Asked Social History Narrative Live alone Family lives nearby Social Determinants of Health Financial Resource Strain: Low Risk (11/11/2023) Financial Resource Strain Do you have any trouble paying for your medications, or do you think you might in the future? (Adult - for ages 18 years and over): No Does your family have trouble paying for medicine? (Household - for ages 0-17 years): Not on file Food Insecurity: No Food Insecurity (11/11/2023) Food Insecurity Do you need food for this week? (Adult - for ages 18 years and over): No Are you able to get enough food for your family? (Household - for ages 0-17 years): Not on file Does your family need food this week? (Household - for ages 0-17 years): Not on file Do you always have enough food for your family? (Household - for ages 0-17 years): Not on file Transportation Needs: No Transportation Needs (11/11/2023) Transportation Needs Do you have trouble getting a ride to medical visits or work? (Adult - for ages 18 years and over):Never True Does your family have a hard time getting a ride to doctors visits? (Household - for ages 0-17 years): Not on file Has lack of transportation kept you from medical appointments, meetings, work, or from getting things needed for daily living? Check all that apply. (Adult - for ages 18 years and over): Not on file Do you (or your family) have trouble finding or paying for a ride (transportation)? (Household - for ages 0-17 years): Not on file Social Connections: Socially Integrated (11/11/2023) Social Connections How often do you feel lonely or isolated from those around you? (Adult - for ages 18 years and over): Never Housing Stability: Low Risk (11/11/2023) Housing Stability Do you currently live in a snf or have no steady place to sleep at night? (Adult - for ages 18 years and over): No Do you think you are at risk of becoming homeless? (Adult - for ages 18 years and over): No Does your family worry about paying for your home or becoming homeless? (Household - for ages 0-17 years): Not on file Are you homeless or worried that you might be in the future? (Adult - for ages 18 years and over): Not on file Are you (or your family) homeless or worried that you might be in the future? (Household - for ages0-17 years): Not on file Review of patient's allergies indicates: Allergen Reactions Naproxen tightness in chest Prednisone tightness in chest Sulindac tightness in chest Objective: There were no vitals taken for this visit. Physical Exam: General: alert, no distress Extensive ROS Constitutional (f/c/wt/vision/hearing): +very deana d of hearing Resp (cough/sob/gibson): +lung nodule, +COPD CV (cp/palp/fluttering/diaphoresis/gibson/pnd):Negative GI (n/v/d/hrtburn): Negative Endo (hair/cold or heat intol/ 3 p's): Negative Neuro (shaking/weak/fatigu/parasthesi/): +weakness Skin (rash/easy bruis/xerosis): Negative Psy (si/hi/halluc/): Negative (nocturia/hesit/drib/sexual review): Negative Lymph (swollen glands/b sx's/: Negative ASSESSMENT: Compression fracture of T12 vertebra with delayed healing, subsequent encounter (Primary)--uncontrolled pain with Percocet, Tylenol, and lidocaine patches and unable to ambulate or perform ADLs at home. Recommended she return back to ED as below. Nodule of upper lobe of right lung--chest CT in 3 months ordered. COPD, group B, by GOLD 2017 classification ([facility]) PLAN: Recommend returning to ED due to uncontrolled pain and inability to ambulate. Patient is unable to stand or transfer. Daughter and Son are having to pick her up and move her from place to place. Her pain is not controlled with oxycodone, Tylenol, and lidocaine patches. Is not currently safe to be at home and family unable to transfer her safely. Feel she needs evaluation and pain control and mostlikely a rehab stay and orthopedics evaluation prior to returning home. Follow up: To ED as above. . Guillermina Hall MD documented in this encounter Plan of Treatment Upcoming Encounters Date Type Department Care Team (Late st Contact Info) Description 02/08/2024 11:30 AM EDT Office Visit Family Medicine [address] [place] [phone] [place] [phone] 02/18/2024 2:30 PM EDT Office Visit Nephrology [address] [place] [phone] ZeJalyn mitchell PA-C [facility] [place] [phone] Health Maintenance Due Date Last Done Comments *BISPHONATE OR OTHER ACCEPTABLE MEDICATION NEEDED FOR OSTEOPOROSIS (REFER TO SMARTSET #1146) 07/05/2020 COVID-19 Vaccine ( season) 2023 05/26/2022, 04/01/2021, 07/17/2020, Additional history exists DXA Scan 07/29/2023 07/29/2021, 01/2022, 02/15/2018, Additional history exists Zoster Vaccines (2 of 2) 09/02/2023 07/08/2023 CKD HGB USE SMARTSET 12198 12/09/202312/08, 12/08/2022, 06/11/2022, Additional history exists CKD PHOS USE SMARTSET 74880 12/09/202311/20, 09/08/2021, 08/06/2020, Additional history exists GFR 12/31/2023 07/02/2023, 11/20, 06/11/2022, Additional history exists Albumin/Creatinine Ratio 07/02/2024 024, 06/30/2022, 09/09/2021, Additional history exists TSH 07/02/2024 07/02/2023, 11/20, 01/31/2020, Additional history exists Depression Screening 11/04/2024 11/05/2023 O2 ASSESSMENT COMPLETED IN PAST YEAR FOR COPD 11/10/2024 11/11/2023 DTaP,Tdap,and Td Vaccines (3 - Td or Tdap) 11/22/2028 11/22/2018, 04/27/2008 Pneumococcal Vaccine: 65+ Years Completed 09/12/2015, 06/21/2012, 03/19/2009 Alpha-1 Antitrypsin Completed 11/18/2017 Lung Cancer Screening Completed 04/25/2021 , 03/08/2020, 11/29/2018, Additional history exists VITAMIN D LEVEL ONCE IN A LIFETIME-USE SMARTSET# [id number] Completed 12/08/2022, 09/08/2021, 01/30/2020, Additional history exists Influenza Vaccine (FLU shot) Completed 05/2024, 05/12/2022, 03/14/2021, Additional history exists GARDASIL-HPV IMMUNIZATION SERIES Aged Out No longer eligible based on patient's age to complete this topic Hepatitis B Aged Out No longer eligi ble based on patient's age to complete this topic MENINGOCOCCAL (MENACTRA/MENVEO) Aged Out No longer eligible based on patient's age to complete this topic documented as of this encounter Medical Devices Not on filedocumented as of this encounter Visit Diagnoses Diagnosis Compression fracture of T12 vertebra with delayed healing, subsequent encounter- Primary Nodule of upper lobe of right lung COPD, group B, by GOLD 2017 classification (HCC) documented in this encounter Advance Directives * Full Code (Latest Code Status on File) Date Activated Date Inactivated Comments 06/24/2019 5:26 AM 06/28/2019 6:34 PM This order ref lects the patients wishes and were consensually agreed upon. Healthcare Agents on File Name Relationship Healthcare Agent Relationship Communication LEIDY Doe Adult Child Health Care R epresentative (appointed verbally by patient or by statute hierarchy) Care Teams Appraiser Relationship Specialty Start Date End Date Jocy Stafford DO [address] [place] [address] [place] [id number] PCP - General Internal Medicine 02/26/17 documented as of this encounter
--- OUTSIDE RECORDS SUMMARY | 2023-12-14 02:58 | External Medical Summary | Summary of Care ---
Author Name Unknown Organization [facility] Address [address] [place] [address] Phone [phone] Care Team Providers Care Marketing Rep Name Role Phone Maylin Burton DO Primary Care Provider Reason for Referral * Medication Prior Authorization - Closed Specialty Diagnoses / Procedures Referred By Marlo sheikh Referred To Contact Diagnoses MEDICATION USE AGREEMENT Lumbar degenerative disc disease Maylin Burton DO [address] [place] [address] [place] [id number] Referral ID Status Reason Start Date Expiration Date Visits Re quested Visits Authorized [id number] Closed 999 999 Reason for Visit * Reason Comments eRx-Medication Refill Encounter Details Date Type Department Care Team (Late st Contact Info) Description 12/12/2023 Refill Family Medicine [address] [place] [phone] Oseas Webber MD [address] [place] [address] [place] [id number] MEDICATION USE AGREEMENT; Lumbar degenerative disc disease Allergies Active Allergy Reactions Criticality Noted Date [...] BY MOUTH IN THE MORNING 90 Capsule 1 11/12/2023 Active Levothyroxine Sodium 25 MCG Oral [...] Active Problems Problem Noted Date Diagnosed Date Acquired hypothyroidism 07/02/2023 Abdominal aortic aneurysm without [...] hemisphere 06/24/2019 08/06/2020 Abnormal urinalysis 06/24/2019 01/30/20 20 Prediabetes 09/26/2018 10/02/2021 Overview: Per Prediabetes protocol [...] artery disease) 02/14/2014 06/29/2019 Muscle cramp, nocturnal 11/28/201208/2017 Magnesium deficiency 08/04/2012 017 COPD, mild 03/26/2011 [...] mRNA, LNP-s, No Pre serve, 2-Dose Series (K[employer]) 04/01/2021,07/17/2020,06/26/2020 Covid-19, Mrna, Lnp-s, Pf, B ivalent, [...] Influenza, Split, I IV3, With Preserve, Inj 03/22/2014,06/07/2013,06/21/2012,09/0 10/2011,05/13/2011,06/30/2010,03/19/20 09 Seasonal Influenza, Trivalen t, Adjuvanted, 65+ [...] (15 years old or older) No 06/24/19 Cognitive Status Response Date of Assessm ent Because of a physical, menta l, or emotional condition, do you have serious difficulty concentrating, remembering, or making decisions? (5 years old or older) No 06/24/2019 documented as of this encounter Miscellaneous Notes * Telephone Encounter - Maylin Burton DO - 12/13/2023 2:28 PM EDTSigned Prescriptions: Disp Refills oxyCODONE-Acetaminophen 5-325 MG Oral Tabl*30 Tab*0 Sig: Take 1 Tablet by mouth daily as needed (pain). Continued scriptAuthorizing Provider: MAYLIN BURTON------ * Telephone Encounter - Maylin Burton DO - 12/13/2023 2:27 PM EDT She uses infrequently. Refilled. * Telephone Encounter - Samara Harvey [facility] - 12/13/2023 12:47 PM EDTPending Prescriptions: Disp Refills oxyCODONE-Acetaminophen 5-325 MG Oral Tabl*30 Tab*0 Sig: Take 1 Tablet by mouth daily as needed (pain) * Telephone Encounter - Samara Harvey [facility] - 12/13/2023 12:46 PM EDT Please advise. Med is not active in chart but I do not see any reason for discontinuation. I have reviewed the patients controlled substance dispensing history in the Prescription Drug Monitoring Program in compliance with the [facility] regulations before prescribing a controlled substance. PDMP checked on 12/13/2023. Pending Prescriptions: Disp Refills oxyCODONE-Acetaminophen 5-325 MG Oral Tab*30 Tab*0 Sig: Take 1 Tablet by mouth daily as needed (pain) Last Visit: 11/08/2023 (in office), Visit date not found (telemedicine) Next Visit: 12/13/2023 Date medication was last filled: 09/20/23 Date medication is due for refill: 10/19/23 Pharmacy: [id number] [address] Is this request for a controlled substance? Yes and Urine Drug Screen was completed Toxicology results: Results for orders placed or performed in visit on 12/30/22 PAIN MANAGEMENT DRUG PANEL, URINE W/ INTERPRETATION Result Value Compliance Interpretation Based on the medication information provided: The positive oxycodone screening result is CONSISTENT with oxycodone use. Confirmatory testing is available upon request. Amphetamines Screen, U Negative Benzodiazepines Screen, U Negative Cannabinoids Screen, U Negative Cocaine Metabolite Screen, U Negative Fentanyl Screen, U Negative Hydrocodone Screen, U Negative Methadone Metabolite Screen, U Negative Morphine/Codeine Screen, U Negative Oxycodone Screen, U Positive (A) Valid Interpretation Normal Creatinine, U 277 Narrative Cutoff Concentrations: Drug Level Amphetamines 500 ng/mL Benzodiazepines 100 ng/mL Cannabinoids 50 ng/mL Cocaine Metabolite 150 ng/mL Fentanyl 1 ng/mL Hydrocodone / Hydromorphone 300 ng/mL Methadone Metabolite 100 ng/mL Morphine / Codeine 300 ng/mL Oxycodone / Oxymorphone 100 ng/mL Screening results are presumptive and can only be used for medical purposes. Confirmatory testing is available upon request. *Note: Due to a large number of results and/or encounters for the requested time period, some results have not been displayed. A complete set of results can be found in Results Review. Please approve if appropriate. Samara Garcia Clinical Pharmacist [facility] ([facility]) [phone] 12/13/2023, 12:47 PM documented in this encounter Plan of Treatment Upcoming Encounters Date Type Department Care Team (Late st Contact Info) Description 12/13/2023 5:00 PM EDT Telemedicine [place] [address] [place] [phone] Guillermina Hall MD [address] [place] [address] [place] [phone] 02/08/2024 11:30 AM EDT Office Visit Family Medicine [address] [place] [phone] Maylin Burton DO [address] [place] [address] [place] [phone] 02/18/2024 2:30 PM EDT Office Visit Nephrology [address] [place] [phone] Jalyn Clark PA-C [facility] [place] [phone] Health Maintenance Due Date Last Done Comments *BISPHONATE OR OTHER ACCEPTABLE MEDICATION NEEDED FOR OSTEOPOROSIS (REFER TO SMARTSET #1146) 07/05/2020 COVID-19 Vaccine ( season) 2023 05/26/2022, 04/01/2021, 07/17/2020, Additional history exists DXA Scan 07/29/2023 07/29/2021, 01/2022, 02/15/2018, Additional history exists Zoster Vaccines (2 of 2) 09/02/2023 07/08/2023 CKD HGB USE SMARTSET 28397 12/09/202312/08, 12/08/2022, 06/11/2022, Additional history exists CKD PHOS USE SMARTSET 16655 12/09/202311/20, 09/08/2021, 08/06/2020, Additional history exists GFR [...] D LEVEL ONCE IN A LIFETIME-USE SMARTSET# [id number] Completed 12/08/2022, 09/08/2021, 01/30/2020, Additional history exists [...] as of this encounter Visit Diagnoses Diagnosis MEDICATION USE AGREEMENT Lumbar degenerative disc disease Degeneration of lumbar or lumbosacral intervertebral disc documented in this encounter Advance Directives * [...] patient or by statute hierarchy) Care Teams Marketing Rep Relationship Specialty Start Date End Date Maylin Burton DO [address] [place] [address] [place] [phone] PCP - General Internal Medicine 02/26/17 documented as of this encounter
[2023-12-14] MEDS ORDERED: ACETAMINOPHEN 325 MG TAB PO PRN (03:00)
[2023-12-14] MEDS ORDERED: NITROGLYCERIN SL 0.4 MG/TAB TAB SL PRN (03:00)
[2023-12-14] MEDS ORDERED: ALBUTEROL 0.5% NEB SOLN 2.5 MG/0.5 ML VIAL INH PRN (03:00)
[2023-12-14] MEDS ORDERED: ALBUTEROL HFA 8 GM INHALER INH PRN (03:00)
[2023-12-14] MEDS: HYDROmorphone INJ 0.5 MG/0.5 ML SYR IV PRN (03:24)
[2023-12-14] MEDS: LEVOTHYROXINE SODIUM 25 MCG TABLET PO SCH (06:21)
[2023-12-14] MEDS: oxyCODONE HCL IR 5 MG TAB (IMMEDIATE RELEASE) PO PRN (06:21)
[2023-12-14 07:23] LABS: Basophils # (auto) 0.04 K/uL (0.00-0.20); Basophils % (auto) 0.6 %; Eosinophils # (auto) 0.24 K/uL (0.00-0.50); Eosinophils % (auto) 3.3 %; Hematocrit (blood only) 33.6 % (37.0-47.0); Hemoglobin 11.2 g/dl (12.0-16.0); Immature Granulocytes # (auto) 0.03 K/uL (0.01-0.20); Immature Granulocytes % (auto) 0.4 %; Lymphocytes # (auto) 0.78 K/uL (1.20-3.40); Lymphocytes % (auto) 10.8 %; Mean Corpuscular Hemoglobin 29.6 pg (25.0-34.0); Mean Corpuscular Hgb Conc 33.3 g/dL (32.0-36.0); Mean Corpuscular Volume 88.7 fL (80.0-100.0); Mean Platelet Volume 9.6 fL (9.4-12.4); Monocytes # (auto) 0.69 K/uL (0.11-0.59); Monocytes % (auto) 9.5 %; Neutrophils # (auto) 5.45 K/uL (1.40-6.50); Neutrophils % (auto) 75.4 %; Platelet Count 138 K/uL (130-400); RDW Coefficient of Variation 13.8 % (11.5-14.5); RDW Standard Deviation 44.7 fL (36.4-46.3); Red Blood Count 3.79 M/uL (4.20-5.40); White Blood Count 7.23 K/ul (4.8-10.8)
--- NOTE | 2023-12-14 07:38 | Hospitalist Progress Note ---
Date of Service December 14, 2023 Assessment & Plan (1) Acute back pain: Plan: Patient admitted to the hospital for intractable back pain. She is unable to care for herself at home. She has a confirmed compression fracture T12. Will treat conservatively and f/[facility] ortho spine; consideration for surgical intervention if no improvement. Intractable back pain: Compression Fx T12: Acute compression fracture of T12 pain control; with Percocet and IV Dilaudid PRN orthospine consult; appreciate recommendations. Per Ortho, conservative treatment with TLSO brace during sitting/ambulation If no improvement per ortho; consider kyphoplasty. PT/OT ordered History of COPD Chronic had nocturnal pulse ox on last admission supposed to be on oxygen 3 L with activity and 2 L with sleeping and presently she is only using while sleeping as per son. Continue home inhalers and nebs as needed. 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 She was admitted for confusion thought to be from UTI but CAT scan showed retroperitoneal intraparenchymal hemorrhage 1 x 1 cm Thought to from been on aspirin and Plavix and uncontrolled blood pressure Currently only on aspirin. Blood pressure goal 140/90 as per neurology On aspirin and statin;continue HLD: Chronic Takes atorvastatin;continue Hypothyroidism: Chronic Takes Synthroid;continue Disposition: PCP: Code Status: Full VTE Prophylaxis: Lovenox I spent a total of 62 minutes coordinating, documenting, and providing care for this patient excluding time spent in the performance of separately billed services. All of the aforementioned completed while collaborating with the assigned attending physician for a full treatment plan. Please see their addendum for further details. Admission and Anticipated Discharge Date Admission Date: December 14, 2023 Supervising Physician Co-Signing Physician Notes Patient seen and examined independently. Discussed with over provider. Patient evaluated by orthospine; recommend TLSO brace, conservative management. Plan for kyphoplasty if patient pain continues to be uncontrolled in next 2 to 3 weeks History of chronic Percocet use; analgesic dose increased. Discussed with son at bedside I have reviewed the advanced practitioner's documentation, and I agree with, and take responsibility for the plan of care I spent a total of 20 minutes coordinating, documenting, and providing care for this patient excluding time spent in the performance of separately billed services. All of the aforementioned completed while collaborating with the assigned advanced practitioner for a full treatment plan Subjective Patient is sitting in her hospital bed in no apparent distress Patient complains of pain with sitting/standing; laying down is okay No pain with SLR Needs help with going to the bathroom Denies loss of bowel or bladder control See a/p for further details Review of Systems Review of Systems: Neuro: (-) Falls, trauma, slurred speech (+) back pain HEENT: (-) ALARCON, dizziness, dysphagia, visual or auditory changes CV: (-) CP, palpitations, swelling Resp: (-) SOB GI: (-) appetite changes, N/V/D, bowel changes : (-) urinary changes (-) loss of bowel or bladder function Musculoskeletal: (-) SLR Skin: (-) rashes Psych: (-) anxiety, depression Physical Exam Physical Exam: Neuro: AAOx4, PERRLA, no aphagia, memory changes, CNII-XII grossly intact HEENT: head normocephalic, moist mucus membranes CV: S1/S2, (-) M/G/R, (-) edema, cap refill < 3 seconds Resp: Lungs CTA in all lucas. On RA GI: Abdomen S/NT/ND, Ax4 bowel sounds, (-) CVA tenderness Musculoskeletal: 5/5 B/L UE strength, 5/5 B/L LE strength. No gait disturbance. spinal point tenderness around SI joint Skin: (-) rashes , (-) erythema. Psych: euthymic mood Results & Data Results & Data Vital Signs (Past 12 Hours) Vital Signs Temp Pulse Pulse Pulse Resp BP Pulse Ox 12/14/23 03:25 12/14/23 03:25 36.4 C L 78 16 128/73 95 12/14/23 02:00 85 16 165/82 H 99 12/14/23 00:44 82 12/14/23 00:00 82 16 153/77 H 99 O2 Del Method O2 Flow Rate 06/25/24 03:25 Nasal Cannula 3 12/14/23 03:25 Nasal Cannula 3 12/14/23 02:00 Room Air 12/14/23 00:44 12/14/23 00:00 Laboratory Results Short CBC 12/13/23 12/14/23 Range/Units 20:19 07:00 WBC 8.96 7.23 (4.8-10.8) K/ul Hgb 12.9 11.2 L (12.0-16.0) g/dl Hct 38.5 33.6 L (37.0-47.0) % Plt Count 192 138 (130-400) K/uL BMP 12/13/23 20:19 Sodium 136 Potassium 3.7 Chloride 103 Carbon Dioxide 26 BUN 22 Creatinine 1.08 Glucose 98 Calcium 9.8 Liver Function 12/13/23 Range/Units 20:19 Total Bilirubin 1.4 H (0.2-1.0) mg/dl AST 28 (13-39) U/L ALT 24 (7-52) U/L Alkaline Phosphatase 71 (34-104) U/L Albumin 4.3 (3.4-5.0) gm/dl Urine 12/13/23 Range/Units 22:53 Urine Color Yellow Urine Appearance Clear (Clear) Urine pH 5.5 (4.5-7.5) Ur Specific [place] 1.017 (1.000-1.030) Urine Protein 1+ H (Negative) Urine Glucose (UA) Negative (Negative) Diagnostic Findings Abdomen/Pelvis CT 12/13/23 22:55 Exam(s): CT ABDOMEN + PELVIS With Contrast IV Amt: 92 ML OPTIRAY 320 EXAM: CT Abdomen and Pelvis With Intravenous Contrast CLINICAL HISTORY: Reason for exam: abd pain, lumbar frac. TECHNIQUE: Axial computed tomography images of the abdomen and pelvis with intravenous contrast. CTDI is 15.52 mGy and DLP is 694.94 mGy-cm. Automated exposure control was utilized for the study. A dose lowering technique was utilized adhering to the principles of ALARA. CONTRAST: Patient received 92 ML OPTIRAY 320 of IV contrast COMPARISON: 08/16/2017 Cholelithiasis distended gallbladder. FINDINGS: Limitations: Exam limited secondary to patient respiratory motion. Lung bases: Unremarkable. No mass. No consolidation. ABDOMEN: Liver: Unremarkable. No mass. Gallbladder and bile ducts: Unremarkable. No calcified stones. No ductal dilation. Pancreas: Unremarkable. No mass. No ductal dilation. Spleen: Unremarkable. No splenomegaly. Adrenals: Unremarkable. No mass. Kidneys and ureters: Unremarkable. No solid mass. No hydronephrosis. Stomach and bowel: 4.4 x 3.5 cm suprarenal abdominal aorta diverticulosis without acute diverticulitis. Diverticulosis without evidence of diverticulitis. No obstruction. PELVIS: Appendix: No findings to suggest acute appendicitis. Bladder: Circumferential wall thickening of the urinary bladder which is nondistended. Reproductive: Uterus is surgically absent. ABDOMEN and PELVIS: Intraperitoneal space: Unremarkable. No free air. No significant fluid collection. Bones/joints: Acute T12 vertebral body compression fracture. No dislocation. Soft tissues: Unremarkable. Vasculature: Unremarkable. No abdominal aortic aneurysm. Lymph nodes: Unremarkable. No enlarged lymph nodes. IMPRESSION: No acute findings in the abdomen or pelvis. Acute T12 vertebral body compression fracture resulting in 50% of the body height loss Electronically signed by: Dario Mak MD 12/14/23 02:20 AM
[2023-12-14 07:41] LABS: BUN Creatinine Ratio 21.8 (10-20); Calcium 8.8 mg/dl (8.6-10.3); Creatinine Clr Calc Pharmacy 45.3 ml/min; Est GFR (African American) 73.4 ml/min; Est GFR (Non-African American) 63.4 ml/min; Magnesium 1.7 mg/dl (1.7-2.4); Potassium 3.5 mmol/L (3.5-5.1)
[2023-12-14] MEDS: ASPIRIN 81 MG ECTAB PO SCH (08:30)
[2023-12-14] MEDS: amLODIPine BESYLATE 5 MG TAB PO SCH (08:30)
[2023-12-14] MEDS: ATORVASTATIN 40 MG TAB PO SCH (08:30)
[2023-12-14] MEDS: busPIRone 5 MG TAB PO SCH (08:31)
[2023-12-14] MEDS: lisinopril 10 MG TAB PO SCH (08:31)
[2023-12-14] MEDS: CYANOCOBALAMIN (B-12) 500 MCG TABLET PO SCH (08:31)
[2023-12-14] MEDS: DULoxetine HCL 60 MG CAP PO SCH (08:31)
[2023-12-14] MEDS: LIDOCAINE 5% 1 PATCH TD SCH (08:32)
--- NOTE | 2023-12-14 10:02 | Orthopedic Consultation ---
Date of Consultation December 14, 2023 Assessment & Plan (1) Closed T12 fracture: Assessment T12 compression fracture. Plan at this time we will will order a TLSO brace to wear when she is up and ambulating. Will see how she progresses with therapy. Identifies that if she fails to improve over the next 2 to 3 weeks she may ultimately be a candidate for kyphoplasty but we are trying to avoid surgical intervention. She understands and agrees. History of Present Illness Reason for Consultation: T12 compression fracture Attending Physician: Tristian Cardona MD History of Present Illness This is a very pleasant 78-year-old female who presents yesterday emergency room with inability to undergo activity of daily living secondary to pain. She does have a diagnosed T12 compression fracture. This morning she states her pain is controlled at rest. She denies any numbness and tingling in the lower extremities. Denies any strength deficits. Allergies Allergy/AdvReac Type Severity Reaction Status Date / Time naproxen Allergy Intermediate PAIN IN Verified 12/14/23 00:41 CHEST prednisone Allergy Intermediate PAIN IN Verified 12/14/23 00:41 CHEST sulindac Allergy Intermediate PAIN IN Verified 12/14/23 00:41 CHEST Home Medications Medication Instructions Recorded Confirmed Type atorvastatin 80 mg tablet 80 mg PO QAM 12/23/18 12/14/23 History oxycodone-acetaminophen 5 mg-325 1 tab PO DAILY PRN Pain 12/23/18 12/14/23 History mg tablet aspirin 81 mg tablet,delayed 81 mg PO DAILY 06/11/22 12/14/23 History release duloxetine 60 mg capsule,delayed 60 mg PO QAM 06/11/22 12/14/23 History release albuterol sulfate 2.5 mg/0.5 mL 2.5 mg (0.5 mL) inhalation Q4H PRN 06/12/22 12/14/23 Rx solution for nebulization bronchospasm #30 ea albuterol sulfate 90 mcg/actuation 2 puff inhalation Q4 PRN Wheezing 06/12/22 12/14/23 History aerosol inhaler amlodipine 5 mg tablet 5 mg PO QAM 06/12/22 12/14/23 History coenzyme Q10 200 mg capsule (Co 200 mg PO DAILY 06/12/22 12/14/23 History Q-10) cyanocobalamin (vitamin B-12) 1,000 mcg PO DAILY 06/12/22 12/14/23 History 1,000 mcg tablet nitroglycerin 0.4 mg sublingual 0.4 mg sublingual .EVERY 5 MINUTES 06/12/22 12/14/23 History tablet (Nitrostat) PRN Chest Pain buspirone 5 mg tablet 5 mg PO BID 11/01/23 12/14/23 History levothyroxine 25 mcg tablet 25 mcg PO DAILY 11/01/23 12/14/23 History lisinopril 10 mg tablet 10 mg PO QAM #30 tabs 11/03/23 12/14/23 Rx lidocaine 5 % topical patch 1 patch topical DAILY #15 ea 12/11/23 12/14/23 Rx Patient History Social History Smoking Status: Never smoker Second Hand Exposure: No; Do You Dip or Chew Tobacco: No; Hx Alcohol Use: No Hx Substance Use: No Preferred Language: Belarusian Communication Ability: Effective Communication Ability Comment: hard of hearing Automatic Glove Former Required: No Beliefs That Will Affect Care: None Current Living Situation: Alone and Family Current Living Situation Comment: Alone with visiting and helping family members Other Information That Helps Us Care for You: No Feels Safe at Home: Yes Safety Concerns: Feels Safe At This Time Assistive Devices: Denture - Upper, Denture - Lower, Glasses and Hearing Aid - Bilateral Physical Exam Physical Exam: On exam she has been strength testing lower extremities. Sensory is intact. Results & Data Vital Signs (Past 12 Hours) Vital Signs Temp Pulse Pulse Pulse Resp BP Pulse Ox 12/14/23 07:55 36.8 C 67 18 105/57 L 93 12/14/23 07:40 12/14/23 03:25 12/14/23 03:25 36.4 C L 78 16 128/73 95 12/14/23 02:00 85 16 165/82 H 99 12/14/23 00:44 82 12/14/23 00:00 82 16 153/77 H 99 O2 Del Method O2 Flow Rate 12/14/23 07:55 Nasal Cannula 3 12/14/23 07:40 Nasal Cannula 3 12/14/23 03:25 Nasal Cannula 3 12/14/23 03:25 Nasal Cannula 3 12/14/23 02:00 Room Air 12/14/23 00:44 12/14/23 00:00 (1) Closed T12 fracture Encounter type: initial encounter Fracture morphology: unspecified fracture morphology Qualified Code(s): S22.089A - Unspecified fracture of T11-T12 vertebra, initial encounter for closed fracture
[2023-12-14] MEDS: ENOXAPARIN INJ 40 MG/0.4 ML SYR SQ SCH (10:04)
--- NOTE | 2023-12-14 11:34 | XRay Report ---
LUMBAR SPINE 3 VIEWS CLINICAL HISTORY: Fall. Low back pain. FINDINGS: Three views of the lumbar spine are compared to study dated 10/18/2013 and correlated with a bdominal CT performed the same day 12/13/[address] dated 12/11/2023. The skeletal struct ures are osteopenic. Again seen is an txsrr-ro-kcxnizss compression fracture of T12 with moderate los s of height. There is a minimal chronic superior endplate compression deformity of L1. There is minim al chronic concavity along the superior endplate of L1. Vertebral body height is otherwise maintained throughout the lumbar spine. There is minimal anterolisthesis at L3-L4. Alignment is otherwise prese rved. There is straightening of the lumbar lordosis. Small anterior and lateral marginal osteophytes are seen throughout. The transverse and spinous processes appear intact. There is mild levocurvature centered at L3. This arthropathy is noted in the lower lumbar region. There is coswqmmm-zl-iwkmjt dis c space narrowing at L4-L5 with associated plate sclerosis. Mild disc space narrowing is seen at the remaining lumbar levels. The visualized bony pelvis appears intact. There is degenerative sclerosis o f the sacroiliac joints. No bowel obstruction is seen. Moderate fecal retention is noted throughout t he colon. Atherosclerotic calcification is noted in the abdominal aorta. IMPRESSION: 1. There is no radiographic evidence of acute fracture or malalignment involving the lumbar spine. 2. Again seen is an bpafk-pa-hmlzqpkh compression fracture of T12. 3. Osteopenia and spondylotic change as above. Dictated: 12/14/2023 7:10 AM Transcribed: 12/14/2023 8:44 AM Patricio [id number] [email or web address] Electronically signed by: Beto Hoang M.D. 12/14/2023 11:33 AM
[2023-12-14] MEDS: oxyCODONE/ACETAMINOPHEN 10-325 TAB PO PRN (12:47)
[2023-12-14] MEDS: PNEUMOCOCCAL VACCINE (PCV20) 20-VAL CONJ-DIP CRM/PF 0.5 ML SYR IM ONE (16:26)
--- NOTE | 2023-12-15 13:54 | Hospitalist Progress Note ---
Date of Service December 15, 2023 Assessment & Plan (1) Acute back pain: (2) Closed T12 fracture: (3) Coronary artery disease: (4) Chronic hypoxic respiratory failure: (5) COPD (chronic obstructive pulmonary disease): Plan Patient admitted to the hospital for intractable back pain. She is unable to care for herself at home. She has a confirmed compression fracture T12. Will treat conservatively and f/u with ortho spine; consideration for surgical intervention if no improvement. Intractable back pain: Compression Fx T12: Acute compression fracture of T12 pain control; schedule APAP Q6h, PRN oxy IR 10mg q6h severe pain orthospine consult; appreciate recommendations. Per Ortho, conservative treatment with TLSO brace during sitting/ambulation If no improvement per ortho; consider kyphoplasty. PT/OT ordered add Senna S for bowel regimen, no BM since 12/11, discussed with RN CBC, CMP ordered for a.m. History of COPD Chronic hypoxic respiratory failure Chronic had nocturnal pulse ox on last admission supposed to be on oxygen 3 L with activity and 2 L with sleeping and presently she is only using while sleeping as per son. Continue home inhalers and nebs as needed. 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 She was admitted for confusion thought to be from UTI but CAT scan showed retroperitoneal intraparenchymal hemorrhage 1 x 1 cm Thought to from been on aspirin and Plavix and uncontrolled blood pressure Currently only on aspirin. Blood pressure goal 140/90 as per neurology On aspirin and statin;continue Abnormal Chest CT done on 12/10 in ED revealed . A 9 mm paramediastinal nodule is questioned in the right upper lobe. This is not well assessed due to motion artifact. A follow-up chest CT in 2-3 months time is recommended for reassessment. recommend repeat chest ct in 2-3 months HLD: Chronic Takes atorvastatin;continue Hypothyroidism: Chronic Takes Synthroid;continue Disposition: pt medically stable, PT/OT recommending rehab PCP:Rivera Sandra Code Status: Full VTE Prophylaxis: Lovenox Pt was seen and examined in collaboration with Dr. Freire, please see addendum I spent a total of 45 minutes coordinating, documenting, and providing care for this patient excluding time spent in the performance of separately billed services. All of the aforementioned completed while collaborating with the assigned attending physician for a full treatment plan. Please see their adden dum for further details. Admission and Anticipated Discharge Date Admission Date: December 14, 2023 Supervising Physician Co-Signing Physician Notes Patient seen and examined independently. Discussed with over provider. Patient evaluated by orthospine; recommend TLSO brace, conservative management. Plan for kyphoplasty if patient pain continues to be uncontrolled in next 2 to 3 weeks History of chronic Percocet use; analgesic dose increased. Discussed with son at bedside, answered all his questions. I have reviewed the advanced practitioner's documentation, and I agree with, and take responsibility for the plan of care I spent a total of 20 minutes coordinating, documenting, and providing care for this patient excluding time spent in the performance of separately billed services. All of the aforementioned completed while collaborating with the assigned advanced practitioner for a full treatment plan Subjective Patient was seen and examined in room 350. F/U Compression fracture of T12. She is complaining of pain with movement, but feels it is getting better. She denies f/c/s, chest pain, sob, n/v/d. She is utilizing brace. Review of Systems Review of Systems: All systems reviewed & are unremarkable except as noted in HPI & below Physical Exam Physical Exam: Gen: WD/WN, elderly F, lying in bed, NAD, A&O x3 HEENT: Normocephalic, atraumatic, conjunctivae moist, sclerae anicteric, mucous membranes moist. Lung: Clear to Auscultation bilaterally, no wheezes/rales/rhonchi Heart: Regular rate, regular rhythm, no murmurs, rubs, or gallops Abdomen: Soft, NT, ND +BS x 4 Extremities: No edema Skin: Warm, no rash, negative turgor. Results & Data Results & Data Vital Signs (Past 12 Hours) Vital Signs Temp Pulse Resp BP Pulse Ox O2 Del Method O2 Flow Rate 12/15/23 08:16 84 116/56 L 93 Nasal Cannula 3 12/15/23 07:20 Nasal Cannula 3 12/15/23 07:05 36.9 C 84 16 95/58 L 90 Nasal Cannula 3 Medications Administered Current Inpatient Medications Acetaminophen (Acetaminophen 325 Mg Tab) 650 mg PO Q6 [facility] Stop: 01/14/24 14:14 Albuterol (Albuterol Hfa 8 Gm Inhaler) 2 puffs INH Q4 PRN PRN Reason: Wheezing Stop: 01/13/24 02:59 Albuterol (Albuterol 0.5% Neb Soln 2.5 Mg/0.5 Ml Vial) 2.5 mg INH Q4H PRN; Protocol PRN Reason: bronchospasm Stop: 01/13/24 02:59 Amlodipine Besylate (Amlodipine Besylate 5 Mg Tab) 5 mg PO QAM [facility] Stop: 01/13/24 08:59 Last Admin: 12/15/23 08:04 Dose: 5 mg Aspirin (Aspirin 81 Mg Ectab) 81 mg PO DAILY [facility] Stop: 01/13/24 08:59 Last Admin: 12/15/23 08:04 Dose: 81 mg Atorvastatin Calcium (Atorvastatin 40 Mg Tab) 80 mg PO QAM [facility] Stop: 01/13/24 08:59 Last Admin: 12/15/23 08:04 Dose: 80 mg Buspirone HCl (Buspirone 5 Mg Tab) 5 mg PO BID [facility] Stop: 01/13/24 08:59 Last Admin: 12/15/23 08:02 Dose: 5 mg Cyanocobalamin (Cyanocobalamin (B-12) 500 Mcg Tablet) 1,000 mcg PO DAILY [facility] Stop: 01/13/24 08:59 Last Admin: 12/15/23 08:03 Dose: 1,000 mcg Duloxetine HCl (Duloxetine Hcl 60 Mg Cap) 60 mg PO QAM [facility] Stop: 01/13/24 08:59 Last Admin: 12/15/23 08:03 Dose: 60 mg Enoxaparin Sodium (Enoxaparin Inj 40 Mg/0.4 Ml Syr) 40 mg SQ Q24H [facility] Stop: 01/13/24 08:59 Last Admin: 12/15/23 08:04 Dose: 40 mg Levothyroxine Sodium (Levothyroxine Sodium 25 Mcg Tablet) 25 mcg PO DAILYBB [facility] Stop: 01/13/24 06:29 Last Admin: 12/15/23 05:41 Dose: 25 mcg Lidocaine (Lidocaine 5% 1 Patch) 1 patch TD DAILY [facility] Stop: 01/13/24 08:59 Last Admin: 12/15/23 08:03 Dose: 1 patch Lisinopril (Lisinopril 10 Mg Tab) 10 mg PO QAM [facility] Stop: 01/13/24 08:59 Last Admin: 12/15/23 08:03 Dose: 10 mg Miscellaneous (Remove Lidoderm Patch) 1 each N/A DAILY@2100 [facility] Stop: 01/13/24 20:59 Last Admin: 12/14/23 20:23 Dose: 1 each Nitroglycerin (Nitroglycerin Sl 0.4 Mg/Tab Tab) 0.4 mg SL Q5M PRN PRN Reason: Chest Pain Stop: 01/13/24 02:59 Oxycodone HCl (Oxycodone Hcl Ir 5 Mg Tab (Immediate Release)) 10 mg PO Q6H PRN PRN Reason: Severe Pain (Scale 7, 8, 9,10) Stop: 12/29/23 13:59 Polyethylene Glycol (Polyethylene (Miralax) 17 Gm Pack) 17 gm PO DAILY PRN PRN Reason: Constipation Stop: 01/13/24 02:59 Last Admin: 12/15/23 14:05 Dose: 17 gm Senna/Docusate Sodium (Docusate Sodium/Senna 50/8.6mg Tab) 1 tab PO BID [facility] Stop: 01/14/24 20:59 (2) Closed T12 fracture Encounter type: initial encounter Fracture morphology: unspecified fracture morphology Qualified Code(s): S22.089A - Unspecified fracture of T11-T12 vertebra, initial encounter for closed fracture
[2023-12-15] MEDS: POLYETHYLENE (MIRALAX) 17 GM PACK PO PRN (14:05)
[2023-12-15] MEDS: ACETAMINOPHEN 325 MG TAB PO SCH (15:06)
[2023-12-15] MEDS: oxyCODONE HCL IR 5 MG TAB (IMMEDIATE RELEASE) PO PRN (17:42)
[2023-12-15] MEDS: DOCUSATE SODIUM/SENNA 50/8.6MG TAB PO SCH (20:22)
[2023-12-16 07:06] LABS: Basophils # (auto) 0.03 K/uL (0.00-0.20); Basophils % (auto) 0.4 %; Eosinophils # (auto) 0.26 K/uL (0.00-0.50); Eosinophils % (auto) 3.6 %; Hematocrit (blood only) 31.7 % (37.0-47.0); Hemoglobin 10.4 g/dl (12.0-16.0); Immature Granulocytes # (auto) 0.03 K/uL (0.01-0.20); Immature Granulocytes % (auto) 0.4 %; Lymphocytes # (auto) 0.54 K/uL (1.20-3.40); Lymphocytes % (auto) 7.5 %; Mean Corpuscular Hemoglobin 29.5 pg (25.0-34.0); Mean Corpuscular Hgb Conc 32.8 g/dL (32.0-36.0); Mean Corpuscular Volume 89.8 fL (80.0-100.0); Mean Platelet Volume 9.8 fL (9.4-12.4); Monocytes # (auto) 0.68 K/uL (0.11-0.59); Monocytes % (auto) 9.4 %; Neutrophils # (auto) 5.67 K/uL (1.40-6.50); Neutrophils % (auto) 78.7 %; Platelet Count 141 K/uL (130-400); RDW Coefficient of Variation 13.7 % (11.5-14.5); RDW Standard Deviation 44.7 fL (36.4-46.3); Red Blood Count 3.53 M/uL (4.20-5.40); White Blood Count 7.21 K/ul (4.8-10.8)
--- NOTE | 2023-12-16 15:32 | Hospitalist Progress Note ---
Date of Service December 16, 2023 Assessment & Plan (1) Acute back pain: (2) Closed T12 fracture: (3) Coronary artery disease: (4) Chronic hypoxic respiratory failure: (5) COPD (chronic obstructive pulmonary disease): Plan Patient admitted to the hospital for intractable back pain. She is unable to care for herself at home. She has a confirmed compression fracture T12. Will treat conservatively and f/u with ortho spine; consideration for surgical intervention if no improvement. Intractable back pain: Compression Fx T12: Acute compression fracture of T12 pain control; schedule APAP Q6h, PRN oxy IR 10mg q6h severe pain orthospine consult; appreciate recommendations. Per Ortho, conservative treatment with TLSO brace during sitting/ambulation If no improvement per ortho; consider kyphoplasty. PT/OT ordered and recommends rehab add Senna S for bowel regimen Still no bowel movement - will add miralax BID Plan to d/c to rehab tomorrow History of COPD Chronic hypoxic respiratory failure Chronic had nocturnal pulse ox on last admission supposed to be on oxygen 3 L with activity and 2 L with sleeping and presently she is only using while sleeping as per son. Continue home inhalers and nebs as needed. CXR ordered due to hypoxia, 89% on 3L pt is w/o complaint ? 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 She was admitted for confusion thought to be from UTI but CAT scan showed retroperitoneal intraparenchymal hemorrhage 1 x 1 cm Thought to from been on aspirin and Plavix and uncontrolled blood pressure Currently only on aspirin. Blood pressure goal 140/90 as per neurology On aspirin and statin;continue Abnormal Chest CT done on 12/10 in ED revealed . A 9 mm paramediastinal nodule is questioned in the right upper lobe. This is not well assessed due to motion artifact. A follow-up chest CT in 2-3 months time is recommended for reassessment. recommend repeat chest ct in 2-3 months HLD: Chronic Takes atorvastatin;continue Hypothyroidism: Chronic Takes Synthroid;continue Disposition: pt medically stable, PT/OT recommending rehab and plan [facility] PCP:Rivera Sandra Code Status: Full VTE Prophylaxis: Lovenox Pt was seen and examined in collaboration with Dr. Freire, please see addendum I spent a total of 47 minutes coordinating, documenting, and providing care for this patient excluding time spent in the performance of separately billed services. All of the aforementioned completed while collaborating with the assigned attending physician for a full treatment plan. Please see their addendum for further details. Admission and Anticipated Discharge Date Admission Date: December 14, 2023 Supervising Physician Co-Signing Physician Notes Pt was not seen and evaluated by myself. Subjective Patient was seen and examined in room 350. F/U Compression fracture of T12. Pt was seen with son at bedside. He helps elicit history and endorses he feels her pain is more controlled. She continues to have pain but states she can get up and go to bathroom with walker which is improvement. She has not yet moved her bowels. She denies f/c/s, chest pain, sob, n/v/d. She feels her breathing is at baseline. Review of Systems Review of Systems: All systems reviewed & are unremarkable except as noted in HPI & below Physical Exam Physical Exam: Gen: WD/WN, elderly F, lying in bed, NAD, A&O x3 HEENT: Normocephalic, atraumatic, conjunctivae moist, sclerae anicteric, mucous membranes moist. Lung: Clear to Auscultation bilaterally, no wheezes/rales/rhonchi Heart: Regular rate, regular rhythm, no murmurs, rubs, or gallops Abdomen: Soft, NT, ND +BS x 4 Extremities: No edema Skin: Warm, no rash, negative turgor. Results & Data Results & Data Vital Signs (Past 12 Hours) Vital Signs Temp Pulse Resp BP Pulse Ox O2 Del Method O2 Flow Rate 12/16/23 15:03 36.6 C 81 20 162/74 H 89 L Nasal Cannula 3 12/16/23 07:20 Nasal Cannula 2 12/16/23 07:06 36.5 C 78 18 109/57 L 90 Nasal Cannula 3 Laboratory Results Short CBC 12/16/23 Range/Units 06:33 WBC 7.21 (4.8-10.8) K/ul Hgb 10.4 L (12.0-16.0) g/dl Hct 31.7 L (37.0-47.0) % Plt Count 141 (130-400) K/uL I have independently reviewed and interpreted patient's a.m. labs of a CBC Medications Administered Current Inpatient Medications Acetaminophen (Acetaminophen 325 Mg Tab) 650 mg PO Q6 [facility] Stop: 01/14/24 14:14 Last Admin: 12/16/23 11:06 Dose: 650 mg Albuterol (Albuterol Hfa 8 Gm Inhaler) 2 puffs INH Q4 PRN PRN Reason: Wheezing Stop: 01/13/24 02:59 Albuterol (Albuterol 0.5% Neb Soln 2.5 Mg/0.5 Ml Vial) 2.5 mg INH Q4H PRN; Protocol PRN Reason: bronchospasm Stop: 01/13/24 02:59 Amlodipine Besylate (Amlodipine Besylate 5 Mg Tab) 5 mg PO QAM [facility] Stop: 01/13/24 08:59 Last Admin: 12/15/23 08:04 Dose: 5 mg Aspirin (Aspirin 81 Mg Ectab) 81 mg PO DAILY [facility] Stop: 01/13/24 08:59 Last Admin: 12/16/23 08:09 Dose: 81 mg Atorvastatin Calcium (Atorvastatin 40 Mg Tab) 80 mg PO QAM [facility] Stop: 01/13/24 08:59 Last Admin: 12/16/23 08:09 Dose: 80 mg Buspirone HCl (Buspirone 5 Mg Tab) 5 mg PO BID [facility] Stop: 01/13/24 08:59 Last Admin: 12/16/23 08:09 Dose: 5 mg Cyanocobalamin (Cyanocobalamin (B-12) 500 Mcg Tablet) 1,000 mcg PO DAILY [facility] Stop: 01/13/24 08:59 Last Admin: 12/16/23 08:09 Dose: 1,000 mcg Duloxetine HCl (Duloxetine Hcl 60 Mg Cap) 60 mg PO QAM [facility] Stop: 01/13/24 08:59 Last Admin: 12/16/23 08:09 Dose: 60 mg Enoxaparin Sodium (Enoxaparin Inj 40 Mg/0.4 Ml Syr) 40 mg SQ Q24H [facility] Stop: 01/13/24 08:59 Last Admin: 12/16/23 08:10 Dose: 40 mg Levothyroxine Sodium (Levothyroxine Sodium 25 Mcg Tablet) 25 mcg PO DAILYBB [facility] Stop: 01/13/24 06:29 Last Admin: 12/16/23 05:53 Dose: 25 mcg Lidocaine (Lidocaine 5% 1 Patch) 1 patch TD DAILY [facility] Stop: 01/13/24 08:59 Last Admin: 12/16/23 08:09 Dose: 1 patch Lisinopril (Lisinopril 10 Mg Tab) 10 mg PO QAM [facility] Stop: 01/13/24 08:59 Last Admin: 12/15/23 08:03 Dose: 10 mg Miscellaneous (Remove Lidoderm Patch) 1 each N/A DAILY@2100 [facility] Stop: 01/13/24 20:59 Last Admin: 12/15/23 20:22 Dose: 1 each Nitroglycerin (Nitroglycerin Sl 0.4 Mg/Tab Tab) 0.4 mg SL Q5M PRN PRN Reason: Chest Pain Stop: 01/13/24 02:59 Oxycodone HCl (Oxycodone Hcl Ir 5 Mg Tab (Immediate Release)) 10 mg PO Q6H PRN PRN Reason: Severe Pain (Scale 7, 8, 9,10) Stop: 12/29/23 13:59 Last Admin: 12/16/23 04:14 Dose: 10 mg Polyethylene Glycol (Polyethylene (Miralax) 17 Gm Pack) 17 gm PO BID [facility] Stop: 01/15/24 20:59 Senna/Docusate Sodium (Docusate Sodium/Senna 50/8.6mg Tab) 1 tab PO BID [facility] Stop: 01/14/24 20:59 Last Admin: 12/16/23 08:08 Dose: 1 tab (2) Closed T12 fracture Encounter type: initial encounter Fracture morphology: unspecified fracture morphology Qualified Code(s): S22.089A - Unspecified fracture of T11-T12 vertebra, initial encounter for closed fracture
--- NOTE | 2023-12-16 15:59 | XRay Report ---
SINGLE VIEW CHEST CLINICAL HISTORY: Hypoxia FINDINGS: An AP, portable, upright chest radiograph is compared to study dated 11/01/2023 and correlat ed with chest CT dated 06/11/2022. The heart is enlarged but noting atherosclerotic calcification of the thoracic aorta. Enlargement of the central pulmonary arteries suggests pulmonary artery hypertens ion. There is pulmonary vascular congestion. Advanced emphysema and chronic interstitial thickening i s similar to previous. Foci of probable scarring are seen throughout both lungs, greatest at the lung bases. There are increasing airspace opacities at the right lung base as compared to previous. No la rge pleural effusion or pneumothorax is seen. The skeletal structures are osteopenic. The bony thorax is grossly intact. IMPRESSION: 1. Cardiomegaly and advanced emphysema with mild pulmonary vascular congestion. 2. There are increasing opacities at the right lung base as compared to 11/01/2023. Correlate clinical ly from some mild pulmonary edema and/or a superimposed pneumonitis. Radiographic follow-up to resolu tion is recommended. ACT 112: Negative or not required by law. Electronically signed by: Beto Hoang M.D. 12/16/2023 3:58 PM
[2023-12-16] MEDS: FUROSEMIDE INJ 20 MG/2 ML VIAL IV ONE (16:18)
[2023-12-16] MEDS: ALBUT/IPRATROP 3MG/0.5MG NEB 3 ML VIAL NEB PRN (16:35)
[2023-12-16] MEDS: POLYETHYLENE (MIRALAX) 17 GM PACK PO SCH (19:33)
[2023-12-16] MEDS: POLYETHYLENE (MIRALAX) 17 GM PACK ONE (19:35)
[2023-12-17 06:05] LABS: Hematocrit (blood only) 31.8 % (37.0-47.0); Hemoglobin 10.7 g/dl (12.0-16.0); Mean Corpuscular Hemoglobin 29.7 pg (25.0-34.0); Mean Corpuscular Hgb Conc 33.6 g/dL (32.0-36.0); Mean Corpuscular Volume 88.3 fL (80.0-100.0); Mean Platelet Volume 9.7 fL (9.4-12.4); Platelet Count 156 K/uL (130-400); RDW Coefficient of Variation 13.6 % (11.5-14.5); White Blood Count 5.71 K/ul (4.8-10.8)
[2023-12-17 06:23] LABS: BUN Creatinine Ratio 22.2 (10-20); Creatinine Clr Calc Pharmacy 39.8 ml/min; Est GFR (African American) 62.8 ml/min; Est GFR (Non-African American) 54.2 ml/min; Potassium 4.1 mmol/L (3.5-5.1)
[2023-12-17 07:27] VITALS: BP 133/73; PULSE 77; RESP 16; TEMP 98.1; O2SAT 95
--- NOTE | 2023-12-17 11:02 | Discharge Summary ---
Discharge Summary Date of Service December 17, 2023 Principal Dx & Hospital Course #1 = Principal Diagnosis (1) Acute back pain: (2) Closed T12 fracture: (3) Coronary artery disease: (4) Chronic hypoxic respiratory failure: (5) COPD (chronic obstructive pulmonary disease): (6) Age-related osteoporosis with current pathol fracture of vertebra: Plan 78 year-old female with past medical significant for hyperlipidemia, hypothyroid ism, COPD, silent sinus syndrome, history of CVA, history of ulcer of aorta, peripheral vascular disease, hypertension, CAD, abdominal aortic aneurysm, B12 deficiency, GERD, CKD stage III, fibromyalgia, osteoporosis, peripheral sensory neuropathy, history of medical marijuana use, history of intracranial hemorrhage who lives at home alone was brought in by son because of back pain and ambulatory dysfunction. Intractable back pain: Compression Fx T12: Age related osteoporotic fracture of T12 Acute --CT lumbar spine: Acute T12 vertebral body compression fracture resulting in 50% of the body height loss pain control with schedule APAP Q6h, PRN oxy IR 10mg q6h severe pain, lidocaine patch Her pain is much more controlled and she has increased bed mobility on day of discharge Ortho Spine consulted - Dr. Ivey who recommends conservative treatment with TLSO brace during sitting/ambulation. If sx persist and severe after 2 weeks he would consider kyphoplasty at that time PT/OT ordered and recommends rehab Constipation, narcotic induced Still no bowel movement on Senna S BID and Miralax BID, will give dulcolax po today prior to discharge recommend continue bowel regimen at rehab History of COPD Chronic hypoxic respiratory failure Chronic had nocturnal pulse ox on last admission in October of 2023 * supposed to be on oxygen 3 L with activity and 2 L with sleeping and presently she is only using while sleeping as per son During hospital stay she required 2-3L at rest CXR on 12/15: Cardiomegaly and advanced emphysema with mild pulmonary vascular congestion. 2. There are increasing opacities at the right lung base as compared to 11/01/2023. Correlate clinically from some mild pulmonary edema and/or a superimposed pneumonitis. Radiographic follow-up to resolution is recommended. She received 20mg IV Lasix on 12/15 She is euvolemic on exam and her lungs are clear b/l on day of discharge, no further diuresis required pt educated on incentive spirometer at bedside and encouraged to use at rehab Nursing recommended to keep oxygen around 92% Continue home inhalers and nebs as needed. 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 She was admitted for confusion thought to be from UTI but CAT scan showed retroperitoneal intraparenchymal hemorrhage 1 x 1 cm Thought to from been on aspirin and Plavix and uncontrolled blood pressure Currently only on aspirin. Blood pressure goal 140/90 as per neurology On aspirin and statin;continue Abnormal Thoracic Spine CT done on 12/10 in ED revealed . A 9 mm paramediastinal nodule is questioned in the right upper lobe. This is not well assessed due to motion artifact. A follow-up chest CT in 2-3 months time is recommended for reassessment. recommend repeat chest ct in 2-3 months HLD: Chronic Takes atorvastatin;continue Hypothyroidism: Chronic Takes Synthroid;continue Disposition: pt medically stable, PT/OT recommending rehab and plan [facility] PCP:Rivera Sandra Code Status: Full VTE Prophylaxis: Lovenox Pt was seen and examined in collaboration with Dr. Freire, please see addendum Notes For Next Care Provider Pt has not yet moved bowels, recommend continuing to titrate bowel regimen until moving bowels consistently, currently on miralax 17g bid and senna S bid. Repeat CXR in [address] in 2 months to eval RUL nodule. Last hospitalization she qualified for home oxygen, but is only wearing at night. Currently she is at baseline on 2L. She is to use 3L with activity. recommend cbc, bmp in 3 days. Medication Changes From Visit * Oxycodone, 5mg, take 2 tablets every 6 hours as needed for severe pain * Tylenol 650mg take 1 tablet by mouth every 6 hours. * Continue Lidocaine Patch, 5%, keep on for 12hrs and then keep off for 12 hours. * Senna - S 1 tablet by mouth twice daily * Miralax 17g by mouth twice daily. Admission HPI Per Admitting Provider 78 year-old female with past medical significant for hyperlipidemia, hypothyroidism, COPD, silent sinus syndrome, history of CVA, history of ulcer of aorta, peripheral vascular disease, hypertension, CAD, abdominal aortic aneurysm, B12 deficiency, GERD, CKD stage III, fibromyalgia, osteoporosis, peripheral sensory neuropathy, history of medical marijuana use, history of intracranial hemorrhage who lives at home alone was brought in by son because of back pain and ambulatory dysfunction. Few days ago patient was trying to lift a window AC unit when felt sharp pain in the back which was progressively getting worse and was in the ER on December 10 and imaging studies showed closed burst fracture of T12 vertebrae and patient was discharged on pain medications and lidocaine patch. But as per son, patient is not doing well at home. Have a lot of back pain. She has not been able to get up from the bed. And not ambulating. Appetite went down. So son brought her back to the hospital today. Patient is very hard of hearing. Son helped with H&P. Currently patient denies headache. Denies blurred vision. No runny nose or sore throat. Has chronic cough from her COPD. No difficulty swallowing. No chest pain. Currently no shortness of breath. When she takes deep breath back is hurting. And has abdominal discomfort. Constipated. Micturating okay. Prior to the fall she was able to ambulate without support. Patient supposed to be on oxygen 2 L during sleep and 3 L with oxygen with activity. As per the son patient currently using oxygen only while sleeping. Hemodynamics are okay currently. In October of this year patient was admitted for acute metabolic encephalopathy secondary to UTI and hypertensive urgency. Past medical history. As mentioned above. Past surgical history. Cardiac cath. Colonoscopy. Bilateral complete removal of breast in 1981. Coronary stenting. Total abdominal hysterectomy with removal of tubes. Social history. . Lives with her son. Quit smoking in 2013. Smoked 1 pack a day for 40 years. No drug use. No alcohol use. Family history. Father had hip fracture ,osteoporosis. Brother has arthritis, sister has arthritis. Brother has hypertension Admission Exam Per Admitting Provider Physical Exam: General- Not in distress Head- atraumatic Eyes- PERRL. ENT- oropharynx clear Neck- supple, no JVD. Lungs- clear to auscultation no wheezing or crackles. Heart- regular rhythm; no murmur, no gallop. Abdomen- normal bowel sounds, soft, nontender, no distension. Extremities- no pretibial edema, no erythema seen. Neuro- alert, oriented ; PERRL, no facial palsy; no dysarthria; moves extremities Musculoskeletal Spinal tenderness in low thoracic spine present Skin- warm & dry Discharge Exam Gen: WD/WN, elderly F, lying in bed, NAD, A&O x3, improved bed mobility today HEENT: Normocephalic, atraumatic, conjunctivae moist, sclerae anicteric, mucous membranes moist. Lung: Clear to Auscultation bilaterally, no wheezes/rales/rhonchi Heart: Regular rate, regular rhythm, no murmurs, rubs, or gallops Abdomen: Soft, NT, ND +BS x 4 Extremities: No edema Skin: Warm, no rash, negative turgor. Updated Medication List Medication Instructions Recorded Confirmed Type atorvastatin 80 mg tablet 80 mg PO QAM 12/23/18 12/14/23 History aspirin 81 mg tablet,delayed 81 mg PO DAILY 06/11/22 12/14/23 History release duloxetine 60 mg capsule,delayed 60 mg PO QAM 06/11/22 12/14/23 History release albuterol sulfate 2.5 mg/0.5 mL 2.5 mg (0.5 mL) inhalation Q4H PRN 06/12/22 12/14/23 Rx solution for nebulization bronchospasm #30 ea albuterol sulfate 90 mcg/actuation 2 puff inhalation Q4 PRN Wheezing 06/12/22 12/14/23 History aerosol inhaler amlodipine 5 mg tablet 5 mg PO QAM 06/12/22 12/14/23 History coenzyme Q10 200 mg capsule (Co 200 mg PO DAILY 06/12/22 12/14/23 History Q-10) cyanocobalamin (vitamin B-12) 1,000 mcg PO DAILY 06/12/22 12/14/23 History 1,000 mcg tablet nitroglycerin 0.4 mg sublingual 0.4 mg sublingual .EVERY 5 MINUTES 06/12/22 12/14/23 History tablet (Nitrostat) PRN Chest Pain buspirone 5 mg tablet 5 mg PO BID 05/13/24 06/25/24 History levothyroxine 25 mcg tablet 25 mcg PO DAILY 11/01/23 12/14/23 History lisinopril 10 mg tablet 10 mg PO QAM #30 tabs 11/03/23 12/14/23 Rx lidocaine 5 % topical patch 1 patch topical DAILY #15 ea 12/11/23 12/14/23 Rx acetaminophen 325 mg tablet 650 mg (2 x 325 mg) PO Q6 #10 tabs 12/17/23 Rx oxycodone 5 mg tablet 10 mg (2 x 5 mg) PO Q6H PRN pain 12/17/23 Rx #10 tabs polyethylene glycol 3350 17 gram 17 g PO BID #14 ea 12/17/23 Rx oral powder packet (Miralax) sennosides 8.6 mg-docusate sodium 1 tab PO BID #10 tabs 12/17/23 Rx 50 mg tablet (Senokot-S) Hospital Stay Data Consultations 12/14/23 00:11 ED Decision to Admit Stat 12/14/23 08:00 Consult Orthopedic Spine Surgery Routine Diagnostic Imagining Performed Lumbar Spine X-Ray 12/13/23 19:35 LUMBAR SPINE 3 VIEWS CLINICAL HISTORY: Fall. Low back pain. FINDINGS: Three views of the lumbar spine are compared to study dated 10/18/2013 and correlated with abdominal CT performed the same day 12/13/[address] dated 12/11/2023. The skeletal structures are osteopenic. Again seen is an ryyrm-bu-iirlfyhg compression fracture of T12 with moderate loss of height. There is a minimal chronic superior endplate compression deformity of L1. There is minimal chronic concavity along the superior endplate of L1. Vertebral body height is otherwise maintained throughout the lumbar spine. There is minimal anterolisthesis at L3-L4. Alignment is otherwise preserved. There is straightening of the lumbar lordosis. Small anterior and lateral marginal osteophytes are seen throughout. The transverse and spinous processes appear intact. There is mild levocurvature centered at L3. This arthropathy is noted in the lower lumbar region. There is xzmilcmj-vg-wvttfr disc space narrowing at L4- L5 with associated plate sclerosis. Mild disc space narrowing is seen at the remaining lumbar levels. The visualized bony pelvis appears intact. There is degenerative sclerosis of the sacroiliac joints. No bowel obstruction is seen. Moderate fecal retention is noted throughout the colon. Atherosclerotic calcification is noted in the abdominal aorta. IMPRESSION: 1. There is no radiographic evidence of acute fracture or malalignment involving the lumbar spine. 2. Again seen is an ptiqf-tu-xlaugmxa compression fracture of T12. 3. Osteopenia and spondylotic change as above. Dictated: 12/14/2023 7:10 AM Transcribed: 12/14/2023 8:44 AM Patricio [id number] [email or web address] Electronically signed by: Beto Hoang M.D. 12/14/2023 11:33 AM Abdomen/Pelvis CT 12/13/23 22:55 Exam(s): CT ABDOMEN + PELVIS With Contrast IV Amt: 92 ML OPTIRAY 320 EXAM: CT Abdomen and Pelvis With Intravenous Contrast CLINICAL HISTORY: Reason for exam: abd pain, lumbar frac. TECHNIQUE: Axial computed tomography images of the abdomen and pelvis with intravenous contrast. CTDI is 15.52 mGy and DLP is 694.94 mGy-cm. Automated exposure control was utilized for the study. A dose lowering technique was utilized adhering to the principles of ALARA. CONTRAST: Patient received 92 ML OPTIRAY 320 of IV contrast COMPARISON: 08/16/2017 Cholelithiasis distended gallbladder. FINDINGS: Limitations: Exam limited secondary to patient respiratory motion. Lung bases: Unremarkable. No mass. No consolidation. ABDOMEN: Liver: Unremarkable. No mass. Gallbladder and bile ducts: Unremarkable. No calcified stones. No ductal dilation. Pancreas: Unremarkable. No mass. No ductal dilation. Spleen: Unremarkable. No splenomegaly. Adrenals: Unremarkable. No mass. Kidneys and ureters: Unremarkable. No solid mass. No hydronephrosis. Stomach and bowel: 4.4 x 3.5 cm suprarenal abdominal aorta diverticulosis without acute diverticulitis. Diverticulosis without evidence of diverticulitis. No obstruction. PELVIS: Appendix: No findings to suggest acute appendicitis. Bladder: Circumferential wall thickening of the urinary bladder which is nondistended. Reproductive: Uterus is surgically absent. ABDOMEN and PELVIS: Intraperitoneal space: Unremarkable. No free air. No significant fluid collection. Bones/joints: Acute T12 vertebral body compression fracture. No dislocation. Soft tissues: Unremarkable. Vasculature: Unremarkable. No abdominal aortic aneurysm. Lymph nodes: Unremarkable. No enlarged lymph nodes. IMPRESSION: No acute findings in the abdomen or pelvis. Acute T12 vertebral body compression fracture resulting in 50% of the body height loss Electronically signed by: Dario Mka MD 12/14/23 02:20 AM Chest X-Ray 12/16/23 15:33 SINGLE VIEW CHEST CLINICAL HISTORY: Hypoxia FINDINGS: An AP, portable, upright chest radiograph is compared to study dated 11/01/2023 and correlated with chest CT dated 06/11/2022. The heart is enlarged but noting atherosclerotic calcification of the thoracic aorta. Enlargement of the central pulmonary arteries suggests pulmonary artery hypertension. There is pulmonary vascular congestion. Advanced emphysema and chronic interstitial thickening is similar to previous. Foci of probable scarring are seen throughout both lungs, greatest at the lung bases. There are increasing airspace opacities at the right lung base as compared to previous. No large pleural effusion or pneumothorax is seen. The skeletal structures are osteopenic. The bony thorax is grossly intact. IMPRESSION: 1. Cardiomegaly and advanced emphysema with mild pulmonary vascular congestion. 2. There are increasing opacities at the right lung base as compared to 11/01/2023. Correlate clinically from some mild pulmonary edema and/or a superimposed pneumonitis. Radiographic follow-up to resolution is recommended. ACT 112: Negative or not required by law. Electronically signed by: Beto Hoang M.D. 12/16/2023 3:[address] SCAN OF THE THORACIC SPINE WITHOUT IV CONTRAST CLINICAL HISTORY: Thoracic back pain. COMPARISON STUDY: CT scan of the thoracic spine dated 11/25/2013. Chest CT dated 06/11/2022. TECHNIQUE: CT scan of the thoracic spine is performed from the lower cervical spine to the upper lumbar spine. Images are reviewed in the axial, sagittal, and coronal planes. IV contrast was not administered for this examination. A dose lowering technique was utilized adhering to the principles of ALARA. CT DOSE: 2024.95 mGy.cm FINDINGS: The skeletal structures are osteopenic. There is an vxwwb-ju-dtsrnccf burst type compression fracture of T12. There is fohk-zz-xyjhmttf loss of height, with concavity along both the superior and inferior endplate. Paravertebral edema is noted. Fragments are retropulsed by up to 4 mm. This does not contribute to significant central canal stenosis. There is no evidence of posterior element involvement. No additional acute fracture is seen involving the thoracic spine. Alignment is maintained. There is kyphoscoliosis of the thoracic spine. The transverse and spinous processes are intact. No lytic or blastic lesion is seen. There is only minimal degenerative disc space narrowing throughout the thoracic spine. There is no CT evidence of large disc herniation or high-grade central canal stenosis. The visualized posterior ribs appear intact. The paraspinous soft tissues are normal in appearance. There is severe emphysema. Fibrotic change/scarring is noted at both lung bases. No airspace consolidation, typical for pneumonia or pleural effusion is identified. Question a 9 mm paramediastinal right upper lobe nodule on image #217. The heart is enlarged. The coronary arteries are densely calcified. Calcified gallstones are noted. IMPRESSION: 1. Mtzht-zx-xuelnbpb burst type compression fracture of T12 as detailed above. 2. No additional fracture is seen involving the thoracic spine. 3. Degenerative change and kyphoscoliosis as above. 4. Advanced emphysema. 5. A 9 mm paramediastinal nodule is questioned in the right upper lobe. This is not well assessed due to motion artifact. A follow-up chest CT in 2-3 months time is recommended for reassessment. 6. Cholelithiasis. 7. Additional findings as above. Pending Results Patient Have Any Pending Studies at Discharge: No Discharge Instructions Given to Patient (Per Discharging Provider) MEDICATION CHANGES: * Oxycodone, 5mg, take 2 tablets every 6 hours as needed for severe pain * Tylenol 650mg take 1 tablet by mouth every 6 hours. * Continue Lidocaine Patch, 5%, keep on for 12hrs and then keep off for 12 hours. * Senna - S 1 tablet by mouth twice daily * Miralax 17g by mouth twice daily. STOP TAKING Percocet 5-325mg SUMMARY OF TEST RESULTS: You were admitted to hospital due to severe pain from a compression fracture in your Thoracic Spine. You were seen and evaluated by orthopedic spine surgeon and it is recommended you utilize a brace while walking. You required oxygen during your hospital stay likely due to pain from the fracture as well as your COPD. PENDING TEST RESULTS: None RECOMMENDATIONS FOR FOLLOW-UP: Please follow up with Primary Care Provider upon discharge from Rehab. Utilize TLSO brace when ambulating and sitting in chair. If you have persistent back pain despite conservative treatment after 2 weeks it is recommended you follow up with Dr. Ivey. Continue all home medications as prescribed. Please use the incentive spirometer 5 times every hour while awake to wean off oxygen. You may require an oxygen study prior to discharge from rehab to determine if you qualify for home oxygen. Continue taking stool softeners until you are moving your bowels regularly. You are on narcotic pain medications that will cause constipation. OTHER INSTRUCTIONS: Seek medical attention if you have: * temperature above 101 * chest pain or trouble breathing * abdominal pain, nausea, vomiting * diarrhea, dark stools or bloody stools * any unanswered questions or concerns Call 911 if symptoms are severe. Please take good care of yourself. It has been a pleasure taking care of you. Please take care of yourself. If you have any questions regarding your recent hospitalization please contact [facility] and request kim Hospitalist @ [phone]. Shanice Aguilar PA-C Total Time Total Time Spent Total Time Spent (In Minutes): 45 minutes Supervising Physician Co-Signing Physician Notes Patient seen and examined independently. Discussed with over provider. Patient evaluated by orthospine; recommend TLSO brace, conservative management. Plan for kyphoplasty if patient pain continues to be uncontrolled in next 2 to 3 weeks History of chronic Percocet use; analgesic dose increased. Pt reports better pain controlled. Pt to follow up with orthospine upon discharge. Pt to utilize incentive spirometry, increase mobility and get CXR in 3-5 days to document any pathology. Her hypoxia likely 2/2 to decreased mobility, decreased chest wall expansion due to fracture. Chest was clear to auscultation today. Pt is hemodynamically stable and would like to go home. I have reviewed the advanced practitioner's documentation, and I agree with, and take responsibility for the plan of care I spent a total of 20 minutes coordinating, documenting, and providing care for this patient excluding time spent in the performance of separately billed services. All of the aforementioned completed while collaborating with the assigned advanced practitioner for a full treatment plan
[2023-12-17] MEDS: bisacodyL 5 MG TABEC PO ONE (12:24)
== END 2023-12-17 13:10 | DRG 543 ==
LOC: ED 18:52 → SUATTDRO 12-14 01:40 → 3W 12-14 01:40